=== PATIENT | male | born 1960 | race Caucasian/White ===

== ENCOUNTER 2020-02-20 14:17 | Outpatient (CLI) | payer OTHER, SELFPAY ==
--- NOTE | ~2020-02-20 | CT_ITS ---
EXAMINATION: CT lung screening DATE: 02/20/2020 15:05 INDICATION: Personal history of tobacco dependence, prior smoker with 40 pack year history TECHNIQUE: Computed tomography (CT) of the chest was performed without intravenous contrast. The dose -length product (DLP) was 229.81 mGy-cm. Automated exposure control and iterative reconstruction tech Brandicted were employed. COMPARISON: 03/10/2006 FINDINGS: No suspicious pulmonary nodule is identified. There are patchy bilateral groundglass opacit ies with a peripheral and upper lung zone predominance which may reflect hypersensitivity pneumonitis . There is no pleural effusion or pneumothorax. No pathologically enlarged thoracic lymph nodes are i dentified. The heart size is normal. Calcified coronary artery atherosclerosis is noted. There is min imal bilateral gynecomastia. IMPRESSION: 1. . Lung-RADS category 1: Negative. Continue annual screening with noncontrast low-dose chest CT in 12 months. Reviewed, dictated and finalized at location A.
== END 2020-02-20 14:18 | disposition home or self-care (01) ==
LOC: ANHIMG 14:23
PROVIDERS: PCP Family Medicine; Visit Provider Family Medicine
DX: Z12.2 Encounter for screening for malignant neoplasm of respiratory organs (principal); Z87.891 Personal history of nicotine dependence
CPT/HCPCS: G0297

== ENCOUNTER 2020-03-12 14:03 | Emergency (ER) | payer OTHER, SELFPAY ==
[2020-03-12 14:14] VITALS: BP 152/75; PULSE 72; RESP 16; TEMP 37.3; O2SAT 97
--- NOTE | 2020-03-12 14:22 | ED.SKABFB ---
HPI - Skin/Abscess/Foreign Bdy General Chief complaint: Skin/Abscess/Foreign Body Stated complaint: rash Time Seen by Provider: 03/12/20 14:15 Source: patient Mode of arrival: ambulatory Limitations: no limitations History of Present Illness HPI narrative: Monster Raymundo is a 60 yo male with a PMH of hypertension high cholesterol, who comes to express care with rash on both arms and lower back. Just moved into a hotel, rash occurred after he moved in yesterday Related Data Home Medications Medication Instructions Recorded Confirmed atorvastatin 20 mg PO DAILY 03/12/20 03/12/20 bupropion HCl 75 mg PO DAILY 03/12/20 03/12/20 diazepam 5 mg PO BID 03/12/20 03/12/20 ergocalciferol (vitamin D2) 1,250 mcg PO DAILY 03/12/20 03/12/20 fluoxetine 20 mg PO DAILY 03/12/20 03/12/20 hydrocodone-acetaminophen 1 tablet PO TID 03/12/20 03/12/20 levothyroxine 50 mcg PO DAILY 03/12/20 03/12/20 losartan 25 mg PO DAILY 03/12/20 03/12/20 terbinafine HCl 250 mg PO DAILY 03/12/20 03/12/20 valsartan 80 mg PO DAILY 03/12/20 03/12/20 Allergies Allergy/AdvReac Type Severity Reaction Status Date / Time codeine Allergy Unknown Verified 03/12/20 14:29 methocarbamol Allergy Unknown Verified 03/12/20 14:29 gabapentin AdvReac Mild Agitated Verified 03/12/20 14:29 nalbuphine AdvReac Unknown Vomiting Verified 03/12/20 14:29 Review of Systems Review of Systems: Narrative: CONSTITUTIONAL: Denies fever, chills, sweats. EYES: Denies visual changes, redness, discharge. ENT: Denies rhinorrhea, congestion, sore throat, otalgia. CARDIOVASCULAR: Denies chest pain, palpitations, edema. RESPIRATORY: Denies dyspnea, wheezing, cough GASTROINTESTINAL: Denies abdominal pain, nausea, vomiting, diarrhea. GENITOURINARY: Denies dysuria, hematuria, abnormal discharge SKIN: Itching red rash on arms and lower back NEUROLOGIC: Denies numbness, or focal weakness. PSYCHIATRIC: Denies anxiety or depression. [facility] Surgical History Surgical History H/O discectomy Family History Family History (Updated 03/12/20 @ 14:31 by Geeta Sigala CNP) Father Family history of lung cancer Alcohol abuse Father Family history of lung cancer Mother Family history of congestive heart failure Other Diabetes mellitus Social History Social History (Updated 03/12/20 @ 14:31 by Geeta Sigala CNP) Smoking packs per day: 1 Smoking cigarettes per day: 20.0 Smoking status: Current every day smoker Tobacco type: cigarettes Alcohol intake: former Living arrangements: with family Comments I have reviewed the medical surgical and family history of patient; none of these are relevant to reason patient is being seen here today Exam Narrative: Exam Narrative: GENERAL: This is a well-nourished, well-developed patient, in mild distress. HEAD: normocephalic, atraumatic. EYES: Sclera clear/white. Vision is grossly intact. EARS: External ears normal, Hearing grossly intact. NOSE: External nose normal without nasal discharge, nares without redness, no rhinorrhea. THROAT: Mucous membranes moist, NECK: Neck supple, CARDIOVASCULAR: Regular rate and rhythm without murmurs, gallops, or rubs. RESPIRATORY: Clear to auscultation. Breath sounds equal bilaterally. No wheezes, rales, or rhonchi. GASTROINTESTINAL: Abdomen soft, SKIN: warm, i red rash on forearms and lower back, appears to be insect bites, pruritic, good texture and turgor. NEURO: awake, alert, and oriented to person, place and time. There were no obvious focal neurologic abnormalities. Steady gait EXTREMITIES: Normal range of motion. BACK: Nwithout deformity Course Course Emergency Course: Started on Benadryl and hydrocortisone cream Vital Signs Vital signs: Vital Signs Temperature 99.2 F 03/12/20 14:14 Pulse Rate 72 03/12/20 14:14 Respiratory Rate 16 03/12/20 14:14 Blood Pressure 152/75 H 03/12/20 14:14 Pulse Oximetry 97 03/12/20 14:
== END 2020-03-12 14:44 | disposition home or self-care (01) ==
PROVIDERS: Emergency Provider Nurse Practitioner; PCP Family Medicine
DX: S30.860A Insect bite (nonvenomous) of lower back and pelvis, initial encounter (principal); I10 Essential (primary) hypertension; E78.00 Pure hypercholesterolemia, unspecified; W57.XXXA Bitten or stung by nonvenomous insect and other nonvenomous arthropods, initial encounter
CPT/HCPCS: 99213; G0463

== ENCOUNTER 2020-11-04 09:24 | Outpatient (CLI) | payer OTHER, SELFPAY ==
--- NOTE | 2020-12-13 18:27 | WPDHOMESLEEP ---
Sleep Study - Home Unattended Date of Study: 11/04/20 Ordering Provider: Valencia Babin MD Interpreting Physician: Tracie Berry MD Home Sleep Study Type: Apnea Link Air Height: 1.85 m Weight: 108.862 kg Body Mass Index: 31.6 Reason for Sleep Study Non-refreshing sleep Sleep History Monster Raymundo is a 60 year old man with hypertension, anxiety and depression. He has complaints of witnessed apneas, snoring, morning grogginess, nonrestorative sleep, morning headaches and excessive daytime sleepiness. His sleepiness limits his daily activities and interferes with his work. He is drowsy while driving. He has excessive dryness of his mouth, and often gasps for breath at night. This information was obtained from Dr. Babin' office note. The patient did not complete the sleep questionnaire. [facility] Past Medical History Medical History (Updated 12/13/20 @ 19:49 by Tracie Berry MD) COPD (chronic obstructive pulmonary disease) Depression High cholesterol History of transient ischemic attack Hypertension Osteoarthritis Spinal stenosis Tobacco abuse Surgical History Surgical History (Updated 12/13/20 @ 19:36 by Tracie Berry MD) H/O discectomy History of eye surgery 1963 History of knee surgery Family History Family History Father Family history of lung cancer Alcohol abuse Father Family history of lung cancer Mother Family history of congestive heart failure Other Diabetes mellitus Social History Social History Smoking packs per day: 1 Smoking cigarettes per day: 20.0 Smoking status: Current every day smoker Tobacco type: cigarettes Alcohol intake: former Medications Home Medications Medication Instructions Recorded Confirmed Type atorvastatin 20 mg PO DAILY 03/12/20 03/12/20 History bupropion HCl 75 mg PO DAILY 03/12/20 03/12/20 History diazepam 5 mg PO BID 03/12/20 03/12/20 History diphenhydramine HCl [Benadryl] 25 mg PO Q6H PRN #60 cap 03/12/20 Rx ergocalciferol (vitamin D2) 1,250 mcg PO DAILY 03/12/20 03/12/20 History fluoxetine 20 mg PO DAILY 03/12/20 03/12/20 History hydrocodone-acetaminophen 1 tablet PO TID 03/12/20 03/12/20 History hydrocortisone 1 applic TOPICAL TID PRN #28.35 gm 03/12/20 Rx levothyroxine 50 mcg PO DAILY 03/12/20 03/12/20 History losartan 25 mg PO DAILY 03/12/20 03/12/20 History terbinafine HCl 250 mg PO DAILY 03/12/20 03/12/20 History valsartan 80 mg PO DAILY 03/12/20 03/12/20 History Sleep Procedure This test was performed using 4 channel monitoring including respiratory effort channel, snoring channel, heart rate channel, and oxygen saturation channel. This study was scored using CMS guidelines. Sleep Architecture Not applicable for home sleep test. Respiratory Analysis Duration of the recording time is 8 hours 52 minutes. Evaluation time is 8 hours 40 minutes. The apnea-hypopnea index is 14. He had 34 obstructive apneas, 64% of the total, and 17 central apneas, 32% of the total, 2 mixed apneas, 4% of the total. There were 68 hypopneas. There is no evidence of Joseph-Herrera respirations. Oximetry Data The oxygen desaturation index is 10. The lowest desaturation is 86%. The mean saturation is 94%. There were 83 desaturations and this patient spent 1 minute below 88%. Snoring Profile There were 2131 snoring events. Cardiac Profile The lowest heart rate is 54, highest heart rate uis 115 which is elevated. The mean heart rate is 79. Assessment and Plan Assessment and Plan (1) Obstructive sleep apnea: Onset Date: ~10/2020 Code(s): G47.33 - Obstructive sleep apnea (adult) (pediatric) Status: Acute Assessment and Plan: The home sleep test using an ApneaLink device on 11/04/2020 shows mild obstructive sleep apnea with an AHI 14, total of 53 apneas which were mainly obstructive apneas; obstructive apneas were 64%
[2020-12-13 20:11] VITALS: BMI 31.6
== END 2020-11-04 09:25 | disposition home or self-care (01) ==
LOC: ANHCSM 09:25
PROVIDERS: PCP Family Medicine; Visit Provider Family Medicine
DX: G47.33 Obstructive sleep apnea (adult) (pediatric) (principal)
CPT/HCPCS: 95806

== ENCOUNTER → 2021-01-02 00:53 | Outpatient (CLI) | payer OTHER, SELFPAY ==
[2021-01-02 19:48] LABS: SARS-CoV-2 RNA PCR Negative
== END ==
PROVIDERS: PCP Family Medicine; Visit Provider Internal Medicine Critical Care Medicine
DX: Z01.812 Encounter for preprocedural laboratory examination (principal); Z20.822 Contact with and (suspected) exposure to COVID-19
CPT/HCPCS: C9803; U0003; U0005

== ENCOUNTER → 2021-01-12 01:02 | Outpatient (CLI) | payer OTHER, SELFPAY ==
[2021-01-12 18:32] LABS: SARS-CoV-2 RNA PCR Negative
== END ==
PROVIDERS: PCP Family Medicine; Visit Provider Internal Medicine Critical Care Medicine
DX: Z01.812 Encounter for preprocedural laboratory examination (principal); Z20.822 Contact with and (suspected) exposure to COVID-19
CPT/HCPCS: C9803; U0003; U0005

== ENCOUNTER 2021-01-13 13:45 | Outpatient (CLI) | payer OTHER, SELFPAY ==
--- NOTE | 2021-01-13 | ECHO_ITS ---
Patient Info Name: Monster Raymundo Age: 60 years : 1960 Gender: Male Ht: 73 in Wt: 230 lbs BSA: 2.34 m2 HR: 83 bpm BP: 150 / 97 mmHg Heart Rhythm: Sinus Rhythm Exam Date: 01/13/2021 2:04 PM Exam Location: [facility] Patient Status: Outpatient Admit Date: 01/13/2021 Staff Ordering Physician: Filippo, Valencia Hanson MD Mother Tester: Deja Merritt RDCS Attending Provider: Filippo, Valencia Hanson MD Referring Physician: Olaf MARTIN; Exam Type: CA echo doppler color flow Study Info Indications - Chronic Obstructive Pulmonary Disease, Sleep Apnea Complete two-dimensional, color flow and Doppler transthoracic echocardiogram is performed. Summary 1. Complete two-dimensional, color flow and Doppler transthoracic echocardiogram is performed. 2. Left ventricular chamber dimension is normal. 3. Left ventricular systolic function is normal, estimated at 55-60%. 4. There is mildly increased left ventricular wall thickness. 5. The left ventricular diastolic function is grade I diastolic dysfunction. 6. E/e' 10 is mildly elevated. 7. There is moderate aortic valve sclerosis. 8. There is mild aortic valve stenosis with a peak velocity of 182 cm/s, mean gradient of 6 mmHg, and aortic valve area of 1.6 cm2. 9. The mitral valve has moderately calcified annulus. Left Ventricle E/e' 10 is mildly elevated. Left ventricular chamber dimension is normal. Left ventricular systolic function is normal, estimated at 55-60%. There is mildly increased left ventricular wall thickness. The left ventricular diastolic function is grade I diastolic dysfunction. Right Ventricle Right ventricular chamber dimension is normal. Right ventricular systolic function is normal. Left Atria Left atrial chamber dimension is normal. Right Atria Right atrial chamber dimension is normal. Aortic Valve The aortic valve is trileaflet. There is moderate aortic valve sclerosis. There is mild aortic valve stenosis with a peak velocity of 182 cm/s, mean gradient of 6 mmHg, and aortic valve area of 1.6 cm2. There is no aortic valve regurgitation. Pulmonic Valve There is no pulmonic regurgitation. Mitral Valve The mitral valve has moderately calcified annulus. There is no mitral valve stenosis. There is no mitral valve regurgitation. Tricuspid Valve There is no tricuspid valve regurgitation. Pericardium/Pleural There is no pericardial effusion. Inferior Vena Cava Normal inferior vena cava with >50% collapse upon inspiration consistent with normal right atrial pressure, 5 mmHg. Aorta The aortic root size at the sinus of Valsalva is normal. Left Ventricular Outflow Tract Name Value Normal LVOT 2D LVOT Diameter 2.0 cm LVOT Doppler LVOT Peak Gradient 3 mmHg LVOT Mean Gradient 2 mmHg LVOT VTI 19 cm LVOT VTI/AV VTI Ratio 0.5 LVOT Stroke Volume 57 ml LVOT CO 10.9 l/min LVOT CI 4.7 l/min/m2 P
== END 2021-01-13 13:46 | disposition home or self-care (01) ==
PROVIDERS: PCP Family Medicine; Visit Provider Family Medicine
DX: G47.33 Obstructive sleep apnea (adult) (pediatric) (principal); I35.8 Other nonrheumatic aortic valve disorders; I35.0 Nonrheumatic aortic (valve) stenosis
CPT/HCPCS: 93306

== ENCOUNTER 2021-01-14 09:36 | Outpatient (CLI) | payer OTHER, SELFPAY ==
--- NOTE | 2021-01-30 11:28 | WPDSLEEPSTUD ---
Sleep Study Date of Study: 01/14/21 Ordering Provider: Valencia Babin, Interpreting Physician: Alejandro Reyna MD Sleep Study Type: CPAP Titration Height: 1.85 m Weight: 108.862 kg Body Mass Index: 31.6 Neck Circumference (inches): 17.5 Lopez: 7 Reason for Sleep Study Prior home study performed in October of 2020 showed presence of obstructive sleep apnea. The patient was recommended to have CPAP titration study because of concurrent presence of central apneic episodes. Sleep History Patient has history of snoring, witnessed apneas, morning grogginess, nonrestorative sleep, morning headaches and daytime sleepiness. Patient also complains of dry mouth. [facility] Past Medical History Medical History (Updated 12/13/20 @ 19:49 by Tracie Berry MD) COPD (chronic obstructive pulmonary disease) Depression High cholesterol History of transient ischemic attack Hypertension Osteoarthritis Spinal stenosis Tobacco abuse Surgical History Surgical History (Updated 12/13/20 @ 19:36 by Tracie Berry MD) H/O discectomy History of eye surgery 1963 History of knee surgery Family History Family History Father Family history of lung cancer Alcohol abuse Father Family history of lung cancer Mother Family history of congestive heart failure Other Diabetes mellitus Social History Social History Smoking packs per day: 1 Smoking cigarettes per day: 20.0 Smoking status: Current every day smoker Tobacco type: cigarettes Alcohol intake: former Medications Home Medications Medication Instructions Recorded Confirmed Type atorvastatin 20 mg PO DAILY 03/12/20 03/12/20 History bupropion HCl 75 mg PO DAILY 03/12/20 03/12/20 History diazepam 5 mg PO BID 03/12/20 03/12/20 History diphenhydramine HCl [Benadryl] 25 mg PO Q6H PRN #60 cap 03/12/20 Rx ergocalciferol (vitamin D2) 1,250 mcg PO DAILY 03/12/20 03/12/20 History fluoxetine 20 mg PO DAILY 03/12/20 03/12/20 History hydrocodone-acetaminophen 1 tablet PO TID 03/12/20 03/12/20 History hydrocortisone 1 applic TOPICAL TID PRN #28.35 gm 03/12/20 Rx levothyroxine 50 mcg PO DAILY 03/12/20 03/12/20 History losartan 25 mg PO DAILY 03/12/20 03/12/20 History terbinafine HCl 250 mg PO DAILY 03/12/20 03/12/20 History valsartan 80 mg PO DAILY 03/12/20 03/12/20 History Sleep Procedure Patient underwent overnight polysomnography for CPAP titration. Patient used Neuronetrix Goff FX nasal pillows of medium size. Sleep Architecture total recording time 450 minutes, total sleep time 246 minutes, sleep efficiency 54.7%. Sleep latency 55 minutes, REM latency 173 minutes. Awake after sleep onset 148 minutes, stage N1 8.5%, N2 86.2%, N3 0% and stage R 5.3%. Supine sleep 100%. Respiratory Analysis [facility] criteria used. During titration patient did not have apneas or hypopneas and AHI was 0. Arousals Total arousals 63 with index 8.4. Spontaneous arousals 58, snores arousals 5. Periodic Limb Movements There were no leg movements. Oximetry Data Mean oxygen saturation 93%, lowest oxygen saturation 91%. Therefore no significant hypoxia was encountered. Snoring Profile Mild continuous snoring noted. Cardiac Profile Normal sinus rhythm with average heart rate of 76 beats per minute. Range 56 to 86 beats per minute. EEG Profile Unremarkable EEG. Assessment and Plan Additional Plan diagnosis -PAMELLA G44.37 During CPAP titration patient used Goff FX nasal pillows of medium size. CPAP data- patient was started on a CPAP of 5 and was increased to a level of 8 cm. This was as a result of persistent snoring and presumed upper airway resistance. EPR of 1 was added for patient comfort. At CPAP of 8 cm- 2 hours and 7 minutes of trial was performed, 11 minutes of REM sleep and 1 hour and 30 minutes of non-REM sleep occurred. A
[2021-01-30 11:45] VITALS: BMI 31.6
== END 2021-01-14 09:37 | disposition home or self-care (01) ==
LOC: ANHCSM 09:37
PROVIDERS: PCP Family Medicine; Visit Provider Family Medicine
DX: G47.33 Obstructive sleep apnea (adult) (pediatric) (principal)
CPT/HCPCS: 95811

== ENCOUNTER 2021-07-28 09:08 | Outpatient (CLI) | payer OTHER, SELFPAY ==
--- NOTE | ~2021-07-28 | XR_ITS ---
EXAMINATION: XR chest 2V 07/28/2021 09:22 INDICATION: Exposure to mold. PROCEDURE: 2 view chest COMPARISON: Comparison to multiple prior studies sequentially, with oldest reviewed study dated 10/1999. FINDINGS: The lungs are clear. The cardiomediastinal silhouette is within normal limits. There are no pleural effusions. There is no pneumothorax suspected. IMPRESSION: 1: NO ACUTE CARDIOPULMONARY DISEASE. Reviewed, dictated and finalized at location A.
== END 2021-07-28 09:09 | disposition home or self-care (01) ==
LOC: ANHIMG 09:14
PROVIDERS: PCP Family Medicine; Visit Provider Physician Assistant
DX: Z77.120 Contact with and (suspected) exposure to mold (toxic) (principal)
CPT/HCPCS: 71046

== ENCOUNTER 2021-09-15 09:33 | Outpatient (CLI) | payer OTHER, SELFPAY ==
--- NOTE | ~2021-09-15 | NM_ITS ---
EXAMINATION: NM trinity stress w perfusion DATE: 09/15/2021 13:04 INDICATION: Chest pain. TECHNIQUE: Rest images were obtained following intravenous administration of 10.5 mCi Tc99m tetrofosm in (Myoview). The patient was infused intravenously with Lexiscan (regadenoson). Then, 31.1 mCi Tc99m tetrofosmin (Myoview) was administered intravenously, and stress images were obtained. Data was davie nstructed into short axis and horizontal and vertical long axis SPECT images. Gated SPECT images were also obtained. COMPARISON: Myocardial perfusion imaging 05/01/2019 FINDINGS: There is no definite reversible or fixed perfusion abnormality to suggest ischemia or infar ction. There is no segmental wall motion abnormality. Left ventricular ejection fraction measures > 70%. IMPRESSION: 1. No definite ischemia or infarct. 2. Normal left ventricular ejection fraction measuring >70%. Reviewed, dictated and finalized at location A. [employer]ENEFITS SPECIALIST
--- NOTE | 2021-09-15 10:24 | EST_ITS ---
Patient Info Name: Monster Raymundo Age: 61 years : 1960 Gender: Male Ht: 73 in Wt: 261 lbs BSA: 2.51 m2 Exam Date: 09/15/2021 11:29 AM Exam Location: [facility] Stress Patient Status: Outpatient Admit Date: 09/15/2021 Staff Ordering Physician: Jose Berkowitz DO Attending Provider: Jose Berkowitz DO Exercise Technologist: Jostin Stallings RDCS, RT Exercise Physician: Jose Berkowitz DO Exam Type: CA stress trinity w NM Study Info A regadenoson stress test was performed. Summary 1. 1. Negative lexiscan stress test for ischemic ST changes by ECG criteria. 2. 2. Baseline hypertension. 3. 3. Nuclear scan to follow and will be reported separately. Please correlate with it. 4. 4. Patient informed of the above results. Protocol: Lexiscan Stress ECG Details Stage: REST Duration (min): 1 min : 35 sec HR (bpm): 68 SBP (mmHg): 151 DBP (mmHg): 79 Stage: REST Duration (min): 4 min : 38 sec HR (bpm): 66 SBP (mmHg): 151 DBP (mmHg): 79 Stage: STAGE 1 Duration (min): 1 min : 0 sec HR (bpm): 73 SBP (mmHg): 144 DBP (mmHg): 81 Stage: RECOVERY Duration (min): 1 min : 0 sec HR (bpm): 101 SBP (mmHg): 144 DBP (mmHg): 81 Stage: RECOVERY Duration (min): 2 min : 0 sec HR (bpm): 101 SBP (mmHg): 144 DBP (mmHg): 81 Stage: RECOVERY Duration (min): 3 min : 0 sec HR (bpm): 101 SBP (mmHg): 158 DBP (mmHg): 72 Stage: RECOVERY Duration (min): 3 min : 18 sec HR (bpm): 96 SBP (mmHg): 158 DBP (mmHg): 72 Rest HR: 66 bpm Peak HR: 101 bpm Rest Sys BP: 151 mmHg Peak Sys BP: 158 mmHg Max Pred HR: 157 bpm % Max Pred HR: 64 % Target HR: 133 bpm Max RPP: 15,958 bpm*mmHg Termination Reason: Completed protocol Cardiac Symptoms: Shortness of breath Total Time: 1 min : 0 sec Rest Paredes BP: 79 mmHg Peak Paredes BP: 72 mmHg Total Dose: 0.4 mg Resting ECG Sinus rhythm. Stress ECG No ST changes. Arrhythmias None. Report Signatures
== END 2021-09-15 09:34 | disposition home or self-care (01) ==
LOC: ANHCARD 09:37
PROVIDERS: Visit Provider Internal Medicine Cardiovascular Disease
DX: R07.89 Other chest pain (principal)
CPT/HCPCS: 78452; 93017; A9502; J2785

== ENCOUNTER → 2021-10-09 00:43 | Outpatient (CLI) | payer OTHER, SELFPAY ==
[2021-10-09 20:10] LABS: SARS-CoV-2 RNA PCR Negative
== END ==
PROVIDERS: PCP Physician Assistant; Visit Provider Nurse Practitioner Gerontology
DX: J34.9 Unspecified disorder of nose and nasal sinuses (principal); Z20.822 Contact with and (suspected) exposure to COVID-19
CPT/HCPCS: C9803; U0003; U0005

== ENCOUNTER 2021-10-19 10:11 | Outpatient (CLI) | payer OTHER, SELFPAY ==
--- NOTE | ~2021-10-19 | CT_ITS ---
EXAMINATION: CT lung screening DATE: 10/19/2021 10:31 INDICATION: Shortness of breath, cough. Chest pain. TECHNIQUE: Computed tomography (CT) of the chest was performed without intravenous contrast. The dose -length product was 456.23 mGy-cm. Automated exposure control and iterative reconstruction technique were employed. COMPARISON: CT dated 02/20/2020 FINDINGS: Heart size is normal. There is atherosclerosis of the aorta and coronary arteries. Gallblad sreekanth is mildly distended. There is fatty infiltration of the liver. Otherwise, the upper aspect of the abdomen is unremarkable. No thoracic lymphadenopathy. No significant pleural or pericardial effusion . There is bilateral gynecomastia. There are patchy groundglass opacities primarily involving the upp er lobes with scattered subpleural nodules measuring 2 mm or less. This constellation of findings is suspicious for respiratory bronchiolitis No endobronchial lesions. No pneumothorax. Mild thoracic spo ndylosis. No acute bone or joint abnormality. There is a focal lytic lesion of T3 on the left IMPRESSION: 1. Lung-RADS category 2: Benign appearance or behavior. Continue annual screening with noncontrast lo w-dose chest CT in 12 months. 2: Upper lobe predominant groundglass opacities with associated centrilobular nodules measuring 2 mm or less, suspicious for respiratory bronchiolitis.. 3: Focal lytic lesion of T3 on the left, nonspecific. If there is a history of malignancy, consider m etastatic disease and also myeloma. Reviewed, dictated and finalized at location A. TRICAL WORKER IMPRESSION: 1. Lung-RADS category 2: Benign appearance or behavior. Continue annual screeni ng with noncontrast low-dose chest CT in 12 months. 2: Upper lobe predominant groundglass opacities with associated centrilobular n odules measuring 2 mm or less, suspicious for respiratory bronchiolitis.. 3: Focal lytic lesion of T3 on the left, nonspecific. If there is a history of malignancy, consider metastatic disease and also myeloma.
== END 2021-10-19 10:12 | disposition home or self-care (01) ==
LOC: ANHIMG 10:13
PROVIDERS: PCP Physician Assistant; Visit Provider Nurse Practitioner Gerontology
DX: F17.210 Nicotine dependence, cigarettes, uncomplicated (principal); R91.8 Other nonspecific abnormal finding of lung field
CPT/HCPCS: 71271

== ENCOUNTER 2021-11-04 08:09 | Outpatient (CLI) | payer OTHER, SELFPAY ==
--- NOTE | 2021-11-08 20:05 | WPDPFTINT ---
PFT Procedure Performed PFT Procedure Performed Spirometry with Pre/Post Bronchodilator Plethysmography (Lung Vol) Diffusing Cap (DLCO) Flow Vol Loop PFT Interpretation DOS: 11/04/2021 REQUESTING: Brenda Graves APRN REASON FOR TESTING: Emphysema PULMONARY FUNCTION TESTS Results are reliable and reproducible. Spirometry: Pre-bronchodilator FEV1 is 80% predicted, 3.05 L. This is normal. FVC is 94% predicted, normal. FEV1/ FVC ratio is decreased 65% and this is consistent with airflow obstruction. HQB94-78% is decreased 59% predicted. There is no change after bronchodilator administration. Lung volumes: Total lung capacity is normal 91% predicted. Residual volume is 90% predicted, normal. RV.TLC is 32%, normal. There is no hyperinflation or air trapping. Airway resistance is increased, 216%. Diffusion: DLCO is 59%, moderately reduced. DLCO/VA is 73%, a partial correction for alveolar volume. Flow volume loop: There is mild flattening on both the inspiratory and expiratory limbs. IMPRESSION: Mild obstructive ventilatory impairment with normal lung volumes and moderate diffusion impairment. This pattern can be seen in chronic obstructive lung disease. Lack of response to bronchodilator should not preclude use if clinically indicated. Compared to the prior pulmonary function study on June 04, 2019 values are similar. The total lung capacity is lower 91% compared to 108% in 2019. Air trapping was present previously and now this is no longer present. Diffusion was approximately the same, 60% compared to 59% currently. Flow volume loop was similar. Tracie Berry MD
--- NOTE | 2021-11-08 20:20 | WPDSIXMINUTE ---
Six Minute Walk Procedure Procedure Performed Pulmonary Stress Test (6 min walk) Six Minute Walk Six Minute Walk: DOS: 11/04/2021 REQUESTING: Brenda Graves APRN REASON FOR TESTING: Emphysema SIX MINUTE WALK This test was conducted per ATS guidelines. The patient perform the test while breathing room air. Initial saturation is 97% and the pulse is 83. He walked for 6 minutes without stopping with a minimum saturation of 91%. Pulse increased to 101. During recovery, saturation returned to baseline 97%. The pulse returned to 84. Distance walked 1100 ft, 335.2 m. This is adequate for his age. IMPRESSION: Mild decrease in saturation to 91% without cruz hypoxemia. No supplemental oxygen indicated. Distance walked is adequate for his age.
== END 2021-11-04 08:10 | disposition home or self-care (01) ==
LOC: ANHPFT 08:09
PROVIDERS: PCP Physician Assistant; Visit Provider Nurse Practitioner Gerontology
DX: J43.9 Emphysema, unspecified (principal); R94.2 Abnormal results of pulmonary function studies
CPT/HCPCS: 94060; 94618; 94726; 94729

== ENCOUNTER 2021-12-14 02:04 | Day surgery (SDC) | payer OTHER, SELFPAY ==
[2021-11-30 13:48] VITALS: BMI 34.3
[2021-12-14 07:41] VITALS: BP 162/89; PULSE 88; RESP 16; TEMP 36.5; O2SAT 97; BMI 33.3
[2021-12-14] MEDS: LACTATED RINGERS 1,000 ML 150 ML IV CONT (07:51)
--- NOTE | 2021-12-14 08:11 | SUR.PREOP ---
Patient requesting to be awake during procedure so that he can watch the screen. Education provided to patient in regards to medications per DR Rogers. They agreed on having different medications that will allow him to see the screen during the procedure.
--- NOTE | 2021-12-14 08:32 | WPDANESEPPF ---
Anes - Initial Pre Proc Eval Procedure: Operation Date: 12/14/21 08:45 Proposed Procedures p Colonoscopy - Ronnie Salazar MD Date/Time: 12/14/21 08:32 Surgeon: Ronnie Salazar MD Pre Op Diagnosis: constipation Patient Data Age: 61 Gender: M Height: 1.85 m Weight: 114.6 kg Last Vital Signs Temp 97.7 F 12/14/21 07:41 Pulse 88 12/14/21 07:41 Resp 16 12/14/21 07:41 BP 162/89 H 12/14/21 07:41 Pulse Ox 97 12/14/21 07:41 Allergies Allergy/AdvReac Type Severity Reaction Status Date / Time codeine Allergy Unknown Unknown Verified 12/14/21 07:40 methocarbamol Allergy Unknown Unknown Verified 12/14/21 07:40 gabapentin AdvReac Mild Agitated Verified 12/14/21 07:40 nalbuphine AdvReac Unknown Vomiting Verified 12/14/21 07:40 Home Medications Medication Instructions Recorded Confirmed Type ergocalciferol (vitamin D2) 1,250 mcg PO WEEKLY 03/12/20 12/14/21 History hydrocodone-acetaminophen 1 tablet PO BID 03/12/20 12/14/21 History levothyroxine 50 mcg PO DAILY 03/12/20 12/14/21 History losartan 25 mg PO DAILY 03/12/20 12/14/21 History atorvastatin 20 mg tablet 20 mg PO QHS #30 tablet 08/18/21 12/14/21 Rx linaclotide 72 mcg capsule 72 mcg PO DAILY 30 Days #30 cap 11/03/21 12/14/21 Rx aspirin 81 mg PO DAILY 11/30/21 12/14/21 History Patient hx anesthesia problems: none Family hx anesthesia problems: none Results Review: All pre-operative results and documents have been reviewed as part of the pre-operative evaluation. [facility] Past Medical History Medical History COPD (chronic obstructive pulmonary disease) Depression High cholesterol History of transient ischemic attack Hypertension Osteoarthritis Spinal stenosis Tobacco abuse Surgical History Surgical History H/O discectomy History of eye surgery 1963 History of knee surgery Family History Family History Father Family history of lung cancer Alcohol abuse Father Family history of lung cancer Mother Family history of congestive heart failure Other Diabetes mellitus Social History Social History Smoking packs per day: 0.75 Smoking cigarettes per day: 15.0 Years smoked: 50 Smoking pack-years: 37.50 Smoking status: Current every day smoker Tobacco type: cigarettes Alcohol intake: former Substance use: current Substance use type: marijuana Other substance usage details: Daily Living arrangements: with family Spiritual care concerns: No Anes - Eval Final PreProcedure Day of Procedure 12/14/21 08:32 Patient weight: obese Heart: regular rate and rhythm Lungs: clear to auscultation Airway: Mallampati scale class III Neurological: alert and oriented Last oral intake: >/= 8 hours ASA classification: III Emergent: no Anesthetic plan: proceed Anesthesia type and monitoring: general GIVS and standard monitoring Results Review: All pre-operative results and documents have been reviewed as part of the pre-operative evaluation. Informed Consent: The patient's anesthetic plan and its attendant risks and benefits were discussed with the patient/family/POA. Questions were solicited and answers provided to the satisfaction of the patient/family/POA.
--- NOTE | 2021-12-14 08:36 | PM.HPGS ---
History of Present Illness History of Present Illness Consent: Risks, benefits, and alternatives have been discussed and questions answered. Patient agrees to proceed with procedure. Chief complaint: constipation Narrative: Monster Raymundo is a 61 year old male with constipation, last colonoscopy 2011. Recently tried linzess 72 mcg only worked initially. Review of Systems Constitutional: Constitutional: Denies headache(s) and Denies weakness Eyes: Eyes: Denies blurry vision ENT: Reports Normal hearing present, Denies headache(s) and Denies neck pain Cardiovascular: Cardiovascular: Denies chest pain and Denies dyspnea Respiratory: Respiratory: Denies dyspnea Gastrointestinal: Gastrointestinal: Reports no additional gastrointestinal complaints Genitourinary: Genitourinary: Denies dysuria Musculoskeletal: Musculoskeletal: Denies neck pain Integumentary/Breasts: Skin/Breast: Denies dry skin Neurologic: Reports Normal hearing present, Denies headache(s) and Denies weakness Psychiatric: Psychiatric: Denies anxiety Endocrine: Endocrine: Denies change in body appearance Hematologic/Lymphatic: Hematologic/Lymphatic: Denies easy bleeding Allergic/Immunologic: Allergic/Immunologic: Denies urticaria PMF Past Medical History Medical History (Updated 12/14/21 @ 08:37 by Ronnie Salazar MD) Constipation COPD (chronic obstructive pulmonary disease) Depression High cholesterol History of transient ischemic attack Hypertension Osteoarthritis Spinal stenosis Tobacco abuse Surgical History Surgical History H/O discectomy History of eye surgery 1963 History of knee surgery Family History Family History Father Family history of lung cancer Alcohol abuse Father Family history of lung cancer Mother Family history of congestive heart failure Other Diabetes mellitus Social History Social History Smoking packs per day: 0.75 Smoking cigarettes per day: 15.0 Years smoked: 50 Smoking pack-years: 37.50 Smoking status: Current every day smoker Tobacco type: cigarettes Alcohol intake: former Substance use: current Substance use type: marijuana Other substance usage details: Daily Living arrangements: with family Spiritual care concerns: No Meds Home Medications and Allergies Home Medications Medication Instructions Recorded Confirmed Type ergocalciferol (vitamin D2) 1,250 mcg PO WEEKLY 03/12/20 12/14/21 History hydrocodone-acetaminophen 1 tablet PO BID 03/12/20 12/14/21 History levothyroxine 50 mcg PO DAILY 03/12/20 12/14/21 History losartan 25 mg PO DAILY 03/12/20 12/14/21 History atorvastatin 20 mg tablet 20 mg PO QHS #30 tablet 08/18/21 12/14/21 Rx linaclotide 72 mcg capsule 72 mcg PO DAILY 30 Days #30 cap 11/03/21 12/14/21 Rx aspirin 81 mg PO DAILY 11/30/21 12/14/21 History Allergies Allergy/AdvReac Type Severity Reaction Status Date / Time codeine Allergy Unknown Unknown Verified 12/14/21 07:40 methocarbamol Allergy Unknown Unknown Verified 12/14/21 07:40 gabapentin AdvReac Mild Agitated Verified 12/14/21 07:40 nalbuphine AdvReac Unknown Vomiting Verified 12/14/21 07:40 Vital Signs Vital Signs - 24 hr 12/14/21 07:41 Temperature 97.7 F Pulse Rate 88 Respiratory Rate 16 Blood Pressure 162/89 H Pulse Oximetry 97 Exam Const: General: comfortable and no acute distress HENMT: General nose exam: Normal nares present Eyes: General: appearance normal, both eyes and all related structures Neck: Neck: no JVD Resp: Auscultation: clear to auscultation bilaterally Cardio: Rate: regular rate Rhythm: regular rhythm GI: Inspection: non-distended GI Palp: Yes Soft to palpation Skin: General skin exam: normal color Neuro: General: gait normal Speech: normal speech Extrem
[2021-12-14 09:06] VITALS: BP 152/72; PULSE 75; RESP 23; O2SAT 99
[2021-12-14 09:16] VITALS: BP 152/82; PULSE 74; RESP 17; O2SAT 100
[2021-12-14 09:26] VITALS: BP 143/86; PULSE 70; RESP 15; O2SAT 100
== END 2021-12-14 09:30 | disposition home or self-care (01) ==
PROVIDERS: Visit Provider Internal Medicine Gastroenterology
PROC: 0DJD8ZZ Inspection of Lower Intestinal Tract, Via Natural or Artificial Opening Endoscopic (ICD-10-PCS; CPT 45378; principal; 2021-12-14 08:45)
DX: Z12.11 Encounter for screening for malignant neoplasm of colon (principal); D12.3 Benign neoplasm of transverse colon; D12.4 Benign neoplasm of descending colon; K63.5 Polyp of colon; K57.30 Diverticulosis of large intestine without perforation or abscess without bleeding; K64.8 Other hemorrhoids; J44.9 Chronic obstructive pulmonary disease, unspecified; E78.00 Pure hypercholesterolemia, unspecified; I10 Essential (primary) hypertension; Z86.73 Personal history of transient ischemic attack (TIA), and cerebral infarction without residual deficits; F17.210 Nicotine dependence, cigarettes, uncomplicated; E66.9 Obesity, unspecified; Z68.33 Body mass index [BMI] 33.0-33.9, adult; F12.90 Cannabis use, unspecified, uncomplicated
CPT/HCPCS: 45385; 88305; J2704; J7120

== ENCOUNTER 2022-01-24 14:47 | Outpatient (CLI) | payer OTHER, SELFPAY ==
--- NOTE | ~2022-01-24 | CT_ITS ---
EXAMINATION: CT thoracic spine wo con DATE: 01/24/2022 15:04 INDICATION: T3 lytic lesion. Upper back pain. Numbness and tingling in the arms. TECHNIQUE: Computed tomography (CT) of the thoracic spine was performed without intravenous contrast. Automated exposure control and iterative reconstruction technique were employed. The dose-length pro duct was 1465.99 mGy-cm. COMPARISON: Chest CT 10/19/2021, 02/20/2020 FINDINGS: There is diffuse hepatic steatosis. There is 5 degrees levocurvature of upper thoracic spin e. There are Schmorl's nodes at most levels. There is a 9 mm lytic lesion in T3 vertebral body, stabl e from 02/20/2020, likely a hemangioma. There is moderately decreased disc height at T5-T6 and mildly decreased disc height at T3-T4, T4-T5, and T6-T7 through T10-T11. There is multilevel facet joint ost eoarthritis, severe on the right at T2-T3 and T4-T5 and on the left at T4-T5. On the right, there is mild neural foraminal stenosis at T2-T3, T3-T4, T4-T5, and T7-T8. On the left, there is mild neural f oraminal stenosis at T4-T5 and T5-T6. There is mild central canal stenosis at T6-T7. IMPRESSION: 1. Chronic lytic lesion in T3 vertebral body, likely a hemangioma. 2. Moderate thoracic spondylosis. Reviewed, dictated and finalized at location A.
== END 2022-01-24 14:48 | disposition home or self-care (01) ==
PROVIDERS: PCP Internal Medicine; Visit Provider Nurse Practitioner
DX: R93.89 Abnormal findings on diagnostic imaging of other specified body structures (principal); M89.9 Disorder of bone, unspecified; M47.814 Spondylosis without myelopathy or radiculopathy, thoracic region
CPT/HCPCS: 72128

== ENCOUNTER 2022-06-10 08:54 | Outpatient (CLI) | payer OTHER, SELFPAY ==
--- NOTE | ~2022-06-10 | XR_ITS ---
XR_CERV2-3V_CR DATE: 06/10/2022 09:08 INDICATION: Neck pain TECHNIQUE: AP, open mouth, lateral views COMPARISON: None FINDINGS: There is straightening of the cervical spinal which may be due to muscle spasm. There is minimal degenerative disc disease at C2-3, mild degenerative disc disease at C3-4 and C4-5, moderate degenerative disc disease at C5-6 and moderately severe degenerative disc disease at C6-7. There is uncovertebral joint spurring at C5-6 and C6-7. C1 and C2 are normally aligned and the odontoid process is intact. No fracture or dislocation or lock ed facet or prevertebral soft tissue swelling. IMPRESSION: Straightening of the cervical spine, which may be due to muscle spasm; no fracture or dis location or locked facet Cervical spondylosis Reviewed, dictated and finalized at Location A. Reviewed, dictated and finalized at location B. IMPRESSION: Straightening of the cervical spine, which may be due to muscle spa sm; no fracture or dislocation or locked facet Cervical spondylosis
== END 2022-06-10 08:55 | disposition home or self-care (01) ==
LOC: ANHIMG 08:55
PROVIDERS: PCP Internal Medicine; Visit Provider Nurse Practitioner
DX: M54.2 Cervicalgia (principal); M53.82 Other specified dorsopathies, cervical region; M47.812 Spondylosis without myelopathy or radiculopathy, cervical region
CPT/HCPCS: 72040

== ENCOUNTER 2022-09-28 13:22 | Outpatient (CLI) | payer OTHER, SELFPAY ==
--- NOTE | ~2022-09-28 | XR_ITS ---
EXAMINATION: XR chest 2V 09/28/2022 13:40 INDICATION: Chest pain PROCEDURE: 2 view chest COMPARISON: Comparison to multiple prior studies sequentially, with oldest reviewed study dated 03/10. FINDINGS: The lungs are clear. The cardiomediastinal silhouette is within normal limits. There are no pleural effusions. There is no pneumothorax suspected. IMPRESSION: 1: NO ACUTE CARDIOPULMONARY DISEASE. Reviewed, dictated and finalized at location A. CONSULTANT
== END 2022-09-28 13:23 | disposition home or self-care (01) ==
PROVIDERS: PCP Internal Medicine; Visit Provider Internal Medicine
DX: R07.9 Chest pain, unspecified (principal)
CPT/HCPCS: 71046

== ENCOUNTER 2023-01-05 08:19 | Outpatient (CLI) | payer OTHER, SELFPAY ==
--- NOTE | 2023-01-05 08:21 | ECHO_ITS ---
Patient Info Name: Monster Raymundo Age: 62 years : 1960 Gender: Male Ht: 73 in Wt: 245 lbs BSA: 2.42 m2 HR: 68 bpm BP: 151 / 89 mmHg Technical Quality: Poor Exam Date: 01/05/2023 8:52 AM Exam Location: [facility] Patient Status: Outpatient Admit Date: 01/05/2023 Staff Ordering Physician: Jose Berkowitz DO Chemical Educator: Mayra Rosa RDCS Attending Provider: Jose Berkowitz DO Referring Physician: Woo MARTINEZ; Exam Type: CA echo dop color flow w con Study Info Indications - nonrheumatic aortic valve stenosis Complete two-dimensional, color flow and Doppler transthoracic echocardiogram is performed with contrast to opacify the left ventricle and to improve the deliniation of the left ventricle endocardial borders. Contrast/Agitated Saline Contrast/Ag. Saline: Definity Amount: 2.00 ml Administered By: Mayra Rosa [facility] New IV Access: Left Site Condition: IV removed Reason for Poor Study: patient body habitus Summary 1. Definity contrast administered improved wall motion interpretation. 2. Left ventricular chamber dimension is normal. 3. Left ventricular systolic function is normal, estimated at 60-65%. 4. There is moderate concentric increased left ventricular wall thickness. 5. The left ventricular diastolic function is grade I diastolic dysfunction. 6. E/e' 9 is minimally elevated. 7. Moderate lipomatous interatrial septum. 8. There is moderate aortic valve sclerosis. 9. The mitral valve has mildly calcified annulus. 10. There is mild tricuspid valve regurgitation. 11. No pulmonary hypertension, estimated pulmonary arterial systolic pressure is 32 mmHg. Left Ventricle E/e' 9 is minimally elevated. Definity contrast administered improved wall motion interpretation. Left ventricular chamber dimension is normal. Left ventricular systolic function is normal, estimated at 60-65%. There is moderate concentric increased left ventricular wall thickness. The left ventricular diastolic function is grade I diastolic dysfunction. Right Ventricle Right ventricular chamber dimension is normal. Right ventricular systolic function is normal. Left Atria Left atrial chamber dimension is normal. Right Atria Right atrial chamber dimension is normal. Atrial Septum Moderate lipomatous interatrial septum. Aortic Valve The aortic valve is trileaflet. There is moderate aortic valve sclerosis. There is no aortic valve stenosis. There is no aortic valve regurgitation. Pulmonic Valve There is no pulmonic regurgitation. Mitral Valve The mitral valve has mildly calcified annulus. There is no mitral valve stenosis. There is no mitral valve regurgitation. Tricuspid Valve There is mild tricuspid valve regurgitation. No pulmonary hypertension, estimated pulmonary arterial systolic pressure is 32 mmHg. Pericardium/Pleural There is no pericardial effusion. Inferior Vena Cava Normal inferior vena cava with >50% collapse upon inspiration consistent with normal right atrial pressure, 5 mmHg. Aorta The aortic root size at the sinus of Valsalva is normal. Left Ventricular Outflow Tract Name Value Normal LVOT 2D LVOT Diameter
[2023-01-05] MEDS: PERFLUTREN LIPID MICROSPHERES 1.5 ML VIAL DILUTED TO 10 ML TOTAL VOLUME IV PUSH (10:00)
[2023-01-05 10:27] LABS: Alanine Aminotransferase 27 U/L (6-50); Alkaline Phosphatase 106 U/L (38-126); Anion Gap 8 mmol/L (8-16); Aspartate Amino Transferase 29 U/L (17-59); Bilirubin,Total 1.2 mg/dL (0.2-1.3); Blood Urea Nitrogen 15 mg/dL (9-20); Calcium 9.5 mg/dL (8.4-10.2); Carbon Dioxide 28 mmol/L (22-30); Chloride 101 mmol/L (98-107); Cholesterol 168 mg/dL (0-200); Estimated Glomerular Filt Rate > 60; Glucose 91 mg/dL (65-110); HDL Direct 42 mg/dL; Potassium 4.4 mmol/L (3.4-5.0); Sodium 137 mmol/L (137-145); Triglycerides 141 mg/dL (<150)
[2023-01-05 10:39] LABS: LDL Cholesterol Direct 90 mg/dL
[2023-01-05 10:43] LABS: Free T4 Free Thyroxine 1.19 ng/mL (0.78-2.19)
[2023-01-10 13:17] LABS: Vitamin D 1,25 (OH)2 Total 28 pg/mL (18-72); Vitamin D2 1,25 (OH)2 28 pg/mL; Vitamin D3 1,25 (OH)2 <8 pg/mL
== END 2023-01-05 08:20 | disposition home or self-care (01) ==
PROVIDERS: PCP Internal Medicine; Visit Provider Internal Medicine Cardiovascular Disease
DX: I10 Essential (primary) hypertension (principal); E78.00 Pure hypercholesterolemia, unspecified; E55.9 Vitamin D deficiency, unspecified; E03.9 Hypothyroidism, unspecified; I35.0 Nonrheumatic aortic (valve) stenosis; R93.1 Abnormal findings on diagnostic imaging of heart and coronary circulation
CPT/HCPCS: 36415; 80053; 80061; 82652; 84439; 84443; C8929; Q9957

== ENCOUNTER 2023-03-06 10:38 | Outpatient (CLI) | payer OTHER, SELFPAY ==
--- NOTE | ~2023-03-06 | US_ITS ---
EXAMINATION:US venous doppler LE LT INDICATION:Left leg and calf pain TECHNIQUE: Multiple grayscale, color flow and Doppler images of the left lower extremity deep venous systems were obtained and reviewed. COMPARISON:No prior studies for comparison. FINDINGS: The common femoral, superficial femoral and popliteal veins demonstrate normal respiratory variation, augmentation and compressibility. Color flow is also seen within the posterior tibial, pe roneal, greater saphenous and profunda veins. IMPRESSION: 1: No lower extremity deep venous thrombosis. Reviewed, dictated and finalized at location B.
== END 2023-03-06 10:39 | disposition home or self-care (01) ==
PROVIDERS: PCP Nurse Practitioner Family; Visit Provider Nurse Practitioner Family
DX: M79.662 Pain in left lower leg (principal)
CPT/HCPCS: 93971

== ENCOUNTER 2023-04-24 09:30 | Outpatient (RCR) | payer OTHER, SELFPAY ==
--- NOTE | 2023-03-30 13:00 | OPREHPOC ---
Outpatient Therapy Plan of Care This is a Multidisciplinary Plan of Care that may contain components documented by all disciplines (PT, OT, and ST.) PT Problem 1 PT Problem #1 Knowledge Deficit PT Goal 1 Goal Independent with HEP Target Visit 6 PT Problem 2 PT Problem #2 Pain PT Goal 1 Goal reduce pain to 5/10 at baseline Target Visit 6 PT Problem 3 PT Problem #3 Impaired Range of Motion PT Goal 1 Goal improve YONY rotation and side bending to 30 degrees and 1 inch above the knees. both without spasms or cramping Target Visit 6
--- NOTE | 2023-03-30 13:00 | PTOPEVAL1 ---
Assessment and note entered by Lico Garcia, PT Evaluation Information Assessment Status Evaluation Diagnosis low back pain, chronic pain Onset exacerbation 2 weeks ago Subjective Information Patient reports severe increase in pain 2 weeks ago, but feeling better now secondary a tapering steroid pack and increase in his pain meds. Also given muscle relaxer, but does not like it. Patient is having trouble sleeping or doing any activity for more than 10 minutes without needing to sit down. Patient has radiating symptoms down both legs worse on the L with a drop foot. Patient also reports constant cramps in the thoracic area of the spine. Reported Pain Level Pain Score 7: Self Report Assessment PT Clinical Summary Stanislaw is a 63 year old male coming into the clinic with a diagnosis of low back pain and chronic pain .The patient has tightness in the muscles of his back along with multiple trigger points. Strength is grossly 4-4+/5 besides a L drop foot. Patient will start with gentle range of motion, stretching, and core recruitment along with manual and modalities for pain control. Patient is aware that we are not trying to eliminate the pain just reduce the amount. Plan of Care Interventions Electrical Stimulation,Gait Training,Hot Pack/Cold Pack,Manual Therapy,Neuro Re-education,Patient/ Caregiver Education,Therapeutic Activities, Therapeutic Exercise,Ultrasound Other Interventions cupping, taping, IASTM PT Services Indicated Yes Treatment Frequency and 1-2x/wk for 4 weeks Duration These treatments will address the objective and functional deficits as defined above. The patient will be advanced safely and appropriately in order for the patient to progress towards his/her prior level of function. Additional exercises will be introduced and as well as a comprehensive home exercise program upon discharge, if needed, ?to ensure carryover of functional gains achieved in the clinic. This treatment plan has been reviewed and agreement upon by the patient.
--- NOTE | 2023-04-03 10:29 | PCPTNOTE ---
Patient did not show up for scheduled appointment this date; called and left voicemail for reminder on next appointment April 07 @9:30am
--- NOTE | 2023-04-14 15:23 | PCPTNOTE ---
pt cancelled his appointment today due to not feeling well .
--- NOTE | 2023-04-26 11:29 | PCPTNOTE ---
Patient did not show up for scheduled appointment this date, left voicemail to call and see if he would like to reschedule reassessment or be discharged from physical therapy.
--- NOTE | 2023-05-10 11:30 | PCPTNOTE ---
Admitting Provider: Attending Provider: Maria Antonia Tong APRN Patient:Monster Raymundo Date of :1960 Patient has not returned for any further treatments since 04/24/2023, therefore he will be discharged at this time. Patient?s initial visit was on 03/30/2023 11:00 and he had a total of ____6____ visits along with 3 no shows no calls The goals have been not met. Thank you for referring this patient to [facility]. Please review, sign, date and return this discharge summary KIERAN. I have been updated about the patient's current status and I agree with discharge from the above service at this time. Referring Physician Date
== END 2023-05-17 11:52 | disposition home or self-care (01) ==
LOC: ANHPT 09:30
PROVIDERS: PCP Nurse Practitioner Family; Visit Provider Nurse Practitioner Family
DX: M54.50 Low back pain, unspecified (principal); M54.2 Cervicalgia; G89.29 Other chronic pain
CPT/HCPCS: 97014; 97110; 97140; 97161; 99199; G0283

== ENCOUNTER 2023-04-26 15:10 | Outpatient (CLI) | payer OTHER, SELFPAY ==
[2023-04-26 16:14] LABS: Basophils Absolute Auto 0.1 K/mm3 (0.0-0.1); Basophils Percent Auto 0.7 % (0.2-1.2); Eosinophils Absolute Auto 0.3 K/mm3 (0-0.3); Eosinophils Percent Auto 2.8 % (0-4.4); Hematocrit 44.7 % (42.0-52.0); Hemoglobin 15.2 g/dL (14.0-18.0); Immature Granulocyte Absolute 0.04 K/mm3 (0.00-0.031); Immature Granulocyte Percent A 0.3 % (0-0.5); Lymphocytes Absolute Auto 4.29 K/mm3 (0.9-3.2); Lymphocytes Percent Auto 37.3 % (18.3-44.2); Mean Corpuscular Hemoglobin 31.5 pg (26-34); Mean Corpuscular Volume 92.7 fl (80-100); Mean Platelet Volume 11.4 fl (7.4-10.4); Monocytes Absolute Auto 0.8 K/mm3 (0.1-0.6); Monocytes Percent Auto 7.1 % (2.6-8.5); Neutrophils Absolute Auto 5.9 K/mm3 (1.3-6.7); Neutrophils Percent Auto 51.8 % (45.5-73.1); Platelet Count Result 242 k/mm3 (150-375); Red Blood Count 4.82 M/mm3 (4.6-6.20); Red Cell Distribution Width 13.4 % (11.5-14.5); White Blood Count 11.5 K/mm3 (4.5-10.0)
[2023-04-26 16:24] LABS: Alanine Aminotransferase 25 U/L (6-50); Albumin Level 4.4 g/dL (3.5-5.1); Alkaline Phosphatase 79 U/L (38-126); Anion Gap 9 mmol/L (8-16); Aspartate Amino Transferase 31 U/L (17-59); Bilirubin,Total 0.8 mg/dL (0.2-1.3); Blood Urea Nitrogen 14 mg/dL (9-20); Calcium 9.2 mg/dL (8.4-10.2); Carbon Dioxide 25 mmol/L (22-30); Chloride 105 mmol/L (98-107); Estimated Glomerular Filt Rate > 60; Glucose 95 mg/dL (65-110); Potassium 4.2 mmol/L (3.4-5.0); Sodium 139 mmol/L (137-145)
== END 2023-04-26 15:11 | disposition home or self-care (01) ==
PROVIDERS: PCP Nurse Practitioner Family; Visit Provider Nurse Practitioner Family
DX: R93.89 Abnormal findings on diagnostic imaging of other specified body structures (principal); I10 Essential (primary) hypertension; R10.9 Unspecified abdominal pain
CPT/HCPCS: 36415; 80053; 85025

== ENCOUNTER 2023-08-17 13:01 | Outpatient (CLI) | payer OTHER, SELFPAY ==
--- NOTE | ~2023-08-17 | XR_ITS ---
XR lumbar spine 2-3V DATE: 08/17/2023 13:20 INDICATION: Deformity and dorsalis the TECHNIQUE: AP, lateral, coned lateral lumbosacral views COMPARISON: 07/02/2011 lumbar spine FINDINGS: Normal alignment of the lumbar vertebrae. No fracture or bone destruction is evident. The i ncluded lower thoracic and lumbar pedicles are intact. Multilevel degenerative disc disease, mild at L2-3, moderate to moderately severe at L3-4, moderately severe at L4-5 and severe L5-S1. No spondylolisthesis. The included lower thoracic and lumbar pedicles are intact. The sacroiliac joints appear normal. IMPRESSION: Multilevel degenerative disc disease, not appreciably since 07/02/2011 Reviewed, dictated and finalized at location L. IMPRESSION: Multilevel degenerative disc disease, not appreciably since 1
== END 2023-08-17 13:02 | disposition home or self-care (01) ==
PROVIDERS: PCP Nurse Practitioner Family; Visit Provider Nurse Practitioner Family
DX: M43.9 Deforming dorsopathy, unspecified (principal); M51.36 Other intervertebral disc degeneration, lumbar region
CPT/HCPCS: 72100

== ENCOUNTER 2023-12-10 12:07 | Outpatient (CLI) | payer OTHER, SELFPAY ==
--- NOTE | ~2023-12-10 | MR_ITS ---
EXAMINATION: MR lumbar spine wo con DATE: 12/10/2023 12:51 INDICATION: Low back pain, unspecified. TECHNIQUE: Magnetic resonance imaging (MRI) of the lumbar spine was performed without intravenous con trast. Sequences included sagittal T2-weighted FSE, sagittal T2-weighted FS FSE, sagittal T1-weighted FSE, and axial T2-weighted FSE. COMPARISON: Lumbar spine radiographs 08/17/2023 FINDINGS: There is 4 degrees dextrocurvature of lumbar spine. There is a Schmorl's node of superior e ndplate of L1. There is severely decreased disc height from L3-L4 through L5-S1. The distal spinal co rd signal intensity is normal. The conus medullaris is at L1-L2. The following disc levels are specif ically discussed: L1-L2: The disc does not extend beyond the endplate margin. There is moderate bilateral facet joint o steoarthritis. There is no neural foraminal stenosis. There is no central canal stenosis. L2-L3: The disc does not extend beyond the endplate margin. There is severe bilateral facet joint ost eoarthritis. There is no neural foraminal stenosis. There is no central canal stenosis. L3-L4: The disc is bulging and has an annular fissure. There is moderate bilateral facet joint osteoa rthritis. There is moderate bilateral neural foraminal stenosis. There is mild central canal stenosis . L4-L5: The disc is bulging and has an annular fissure. There is moderate right and severe left facet joint osteoarthritis. There is mild right and moderate left neural foraminal stenosis. There is mild central canal stenosis. There are changes of left hemilaminotomy. L5-S1: The disc is bulging and has an annular fissure. There is moderate right and severe left facet joint osteoarthritis. There is moderate bilateral neural foraminal stenosis. There is mild central ca nal stenosis. There are changes of left hemilaminotomy. IMPRESSION: 1. Severe lumbar spondylosis. Reviewed, dictated and finalized at location A. ILIZING MACHINE OPERATOR
== END 2023-12-10 12:08 | disposition home or self-care (01) ==
LOC: ANHIMG 12:10
PROVIDERS: PCP Nurse Practitioner Family; Visit Provider Nurse Practitioner Family
DX: M47.896 Other spondylosis, lumbar region (principal)
CPT/HCPCS: 72148

== ENCOUNTER 2023-12-17 16:03 | Observation (INO) | payer OTHER, SELFPAY ==
[2023-12-17] VITALS (9 sets, daily range): BP systolic 140–172; BP diastolic 70–90; PULSE 78–96; RESP 14–22; TEMP 36.7; O2SAT 98–100
--- NOTE | ~2023-12-17 | US_ITS ---
EXAMINATION: US venous doppler [facility] DATE: 12/18/2023 09:39 INDICATION: Lower limb pain and swelling TECHNIQUE: Grayscale ultrasound images without and with compression and Doppler ultrasound images of the bilateral lower extremity veins were obtained. COMPARISON: None. FINDINGS: The visualized portions of right common femoral vein, profunda (deep) femoral vein, femoral vein, pop liteal vein, posterior tibial veins, peroneal veins, gastrocnemius vein and greater saphenous vein ou tflow are patent. The visualized portions of left common femoral vein, profunda femoral vein, femoral vein, popliteal v ein, posterior tibial veins, peroneal veins, gastrocnemius vein and greater saphenous vein outflow ar e patent. IMPRESSION: 1. No deep venous thrombosis in either lower limb. Reviewed, dictated and finalized at location A. TESTING OPERATOR
--- NOTE | ~2023-12-17 | XR_ITS ---
EXAMINATION: XR chest 2V Exam Date/Time: 12/17/2023 17:05 ACCESS TECH HISTORY: chest pain Comparison: 09/28/2022. RESULT: Lines, tubes, and devices: None. Lungs and pleura: Clear. Cardiomediastinal silhouette: Stable. Other: No acute osseous or upper abdominal finding. IMPRESSION: No acute cardiopulmonary process. Reviewed, dictated and finalized at location K. SS TECH
--- NOTE | 2023-12-17 16:05 | ECG_ITS ---
Measurements Intervals Stigler Rate: 89 P: 28 WA: 185 QRS: 43 QRSD: 94 T: 65 QT: 375 QTc: 457 Interpretive Statements SINUS RHYTHM WITHIN NORMAL LIMITS NO PREVIOUS ECG AVAILABLE FOR COMPARISON Electronically Signed On 12-18-2023 7:04:23 LOBBYIST by Monster Jean M.D.
[2023-12-17 16:39] LABS: Basophils Absolute Auto 0.1 K/mm3 (0.0-0.1); Basophils Percent Auto 0.5 % (0.2-1.2); Eosinophils Absolute Auto 0.3 K/mm3 (0-0.3); Eosinophils Percent Auto 2.4 % (0-4.4); Hematocrit 46.3 % (42.0-52.0); Hemoglobin 15.2 g/dL (14.0-18.0); Immature Granulocyte Absolute 0.04 K/mm3 (0.00-0.031); Immature Granulocyte Percent A 0.3 % (0-0.5); Lymphocytes Absolute Auto 4.33 K/mm3 (0.9-3.2); Lymphocytes Percent Auto 33.1 % (18.3-44.2); Mean Corpuscular HGB Conc 32.8 g/dl (32-36); Mean Corpuscular Hemoglobin 31.6 pg (26-34); Mean Corpuscular Volume 96.3 fl (80-100); Mean Platelet Volume 11.4 fl (7.4-10.4); Monocytes Absolute Auto 0.8 K/mm3 (0.1-0.6); Monocytes Percent Auto 6.3 % (2.6-8.5); Neutrophils Absolute Auto 7.5 K/mm3 (1.3-6.7); Neutrophils Percent Auto 57.4 % (45.5-73.1); Platelet Count Result 230 k/mm3 (150-375); Red Blood Count 4.81 M/mm3 (4.6-6.20); White Blood Count 13.1 K/mm3 (4.5-10.0)
[2023-12-17 16:51] LABS: INR 0.9; Prothrombin Time 12.8 Seconds (11.1-14.7)
[2023-12-17 16:52] LABS: Partial Thromboplastin Time 31.5 SECONDS (22.3-36.8)
[2023-12-17 16:55] LABS: Alanine Aminotransferase 35 U/L (6-50); Albumin Level 4.3 g/dL (3.5-5.1); Alkaline Phosphatase 88 U/L (38-126); Anion Gap 7 mmol/L (8-16); Aspartate Amino Transferase 29 U/L (17-59); Bilirubin,Total 1.1 mg/dL (0.2-1.3); Blood Urea Nitrogen 14 mg/dL (9-20); Carbon Dioxide 22 mmol/L (22-30); Chloride 109 mmol/L (98-107); Estimated CRCL calculation 120 ml/min; Estimated Glomerular Filt Rate > 60; Glucose 119 mg/dL (65-110); Lipase 52 U/L (23-300); Potassium 3.6 mmol/L (3.4-5.0); Sodium 138 mmol/L (137-145)
[2023-12-17 17:06] LABS: Troponin I < 0.012 ng/mL (0.000-0.034)
--- NOTE | 2023-12-17 18:01 | ED.CHESTPAIN ---
HPI - Chest Pain General Chief Complaint: Chest Pain Stated Complaint: Chest pain Time Seen by Provider: 12/17/23 18:01 Source: patient Mode of arrival: ambulatory Limitations: no limitations History of Present Illness HPI narrative: 63 years old white male came to the emergency room by private car complaining of chest pain and shortness of breath. Patient was shopping yesterday, suddenly started feeling like his heart is running fast, associated with shortness of breath, few minutes later started having chest pain 10/10, worse when he takes deep breath, continued all night long, woke up this morning with slight discomfort in the chest 1/10 mainly when he takes deep breath. Patient reports right upper extremity numbness and tingling. Came few hours later after the beginning of the chest pain and fast heart beat symptoms. History of hypertension, hyperlipidemia, hypothyroidism, chronic neck and back pain and surgery, patient does smoke cigarettes, smoked marijuana daily, no alcohol. His mother had heart attack at age 40. Related Data Home Medications Medication Instructions Recorded Confirmed aspirin 81 mg tablet 81 mg PO DAILY 11/30/21 10/18/23 Allergies Allergy/AdvReac Type Severity Reaction Status Date / Time codeine Allergy Unknown Unknown Verified 10/18/23 13:47 cyclobenzaprine Allergy Unknown Unknown Verified 10/18/23 13:47 methocarbamol Allergy Unknown Unknown Verified 10/18/23 13:47 gabapentin AdvReac Mild Agitated Verified 10/18/23 13:47 nalbuphine AdvReac Unknown Vomiting Verified 10/18/23 13:47 PMFSH Past Medical History Medical History Aortic stenosis Arthritis Bowel trouble Cervical radiculopathy Constipation COPD (chronic obstructive pulmonary disease) Depression Difficulty breathing Difficulty sleeping Dyslipidemia Fatigue Head trauma High cholesterol History of colon polyps History of DVT (deep vein thrombosis) History of transient ischemic attack Hypertension Numbness Obstructive sleep apnea (~10/2020) Osteoarthritis Spinal stenosis Tobacco abuse Type 2 diabetes mellitus Vitamin D deficiency Weakness Surgical History Surgical History H/O discectomy History of eye surgery 1963 History of knee surgery Family History Family History Father Family history of lung cancer Alcohol abuse Hypertension Mother Family history of congestive heart failure Hypertension Cerebrovascular accident Sibling Diabetes mellitus Hypertension Depression Anxiety Son Cancer Hypertension Social History Social History Smoking packs per day: 0.75 Smoking cigarettes per day: 15.0 Years smoked: 50 Smoking pack-years: 37.50 Smoking status: Current every day smoker Tobacco type: cigarettes Alcohol intake: former Substance use: current Substance use type: marijuana Other substance usage details: Daily Lack of Transportation: No Lack of Food: Never True Current Housing: I Have Housing Concerned About Future Housing: No Difficulty Paying Gas/Electric Bills: No Difficulty Paying for Meds: No Currently Unemployed: No Education: High School Diploma/GED Difficulty w/ Childcare or Family Care: No Living arrangements: with family Spiritual care concerns: No Course Vital Signs Vital signs: Vital Signs Temperature 36.7 C 12/17/23 16:08 Pulse Rate 96 12/17/23 16:08 Respiratory Rate 14 12/17/23 16:08 Blood Pressure 153/70 H 12/17/23 16:08 Pulse Oximetry 98 12/17/23 16:08 Oxygen Delivery Room Air 12/17/23 16:08 Temperature 36.7 C 12/17/23 16:08 Pulse Rate 83 12/17/23 19:01 Respiratory Rate 21 H 12/17/23 19:01 Blood Pressure 140/75 12/17/23 19:01 Pulse Oximetry 100 12/17/23 20:33 Oxygen Delivery
[2023-12-17] MEDS: ASPIRIN 81 MG CHEWABLE TABLET 324 MG PO (18:22)
[2023-12-17 18:58] LABS: D Dimer 0.47 ug/mL (<0.48)
[2023-12-17 19:04] LABS: Influenza A QL RT-PCR Negative (Negative); Influenza B QL RT-PCR Negative (Negative); RSV RNA, RT-PCR Negative (Negative); SARS-CoV-2 RNA PCR Negative (Negative)
[2023-12-17] MEDS: HYDROcodone/acetaminophen (*CRX) 10-325 MG TABLET 1 TAB PO (19:19)
--- NOTE | 2023-12-17 19:40 | ECG_ITS ---
Measurements Intervals [place] Rate: 75 P: 48 [place]: 192 QRS: 32 QRSD: 90 T: 68 QT: 381 QTc: 428 Interpretive Statements SINUS RHYTHM NORMAL ECG COMPARED TO ECG 12/17/2023 16:09:08 NO SIGNIFICANT CHANGES Electronically Signed On 12-18-2023 18:20:01 COMPUTER EQUIPMENT REPAIRER by Sher Dong M.D.
[2023-12-17 19:53] LABS: Troponin I < 0.012 ng/mL (0.000-0.034)
--- NOTE | 2023-12-17 20:19 | PM.IMHP ---
H&P: HPI History of Present Illness Date/Time: 12/17/23 20:19 Chief Complaint: CHEST PAIN Narrative: This is a 63-year-old male with past medical history significant for COPD/emphysema, tobacco dependence, chronic back pain, hypertension. Patient presents to the emergency room due to chest pain localized to the retrosternal area with radiation to the left arm and shoulder patient presented after he went to grocery shopping while he was at the supermarket denies any nausea, vomiting, had some lightheadedness with it pain has been present now for roughly 18 hours had 4 aspirins on route to the hospital and a nitro sublingual at the time of my visit patient is chest pain-free, notice ankle edema denies any PND or orthopnea however has had shortness of breath has a cough which is productive of white phlegm denies any fevers, rigors, chills, patient smokes up to 2 packs of cigarettes daily. Preliminary workup has been essentially nonrevealing. Patient has been placed in observation for further evaluation management and treatment. EXAMINATION:? XR chest 2V Exam Date/Time:? 12/17/2023 17:05 SURGICAL TRAINING SPECIALIST HISTORY: chest pain ? Comparison:? 09/28/2022. RESULT: Lines, tubes, and devices:? None. Lungs and pleura:? Clear. Cardiomediastinal silhouette:? Stable. Other:? No acute osseous or upper abdominal finding. ? IMPRESSION: No acute cardiopulmonary process. Review of Systems Review of Systems: Chest pain, shortness of breath, bilateral ankle edema Constitutional: Constitutional: Denies chills, Denies fatigue, Denies fever(s) and Denies night sweats Eyes: Eyes: Denies change in vision ENT: Denies dysphagia, Denies nasal congestion and Denies nasal discharge Cardiovascular: Cardiovascular: Reports chest pain, Reports pedal edema, Reports radiating jaw, neck or arm pain, Denies palpitations and Reports dyspnea on exertion Respiratory: Respiratory: Reports cough, Reports dyspnea on exertion and Denies wheezing Gastrointestinal: Gastrointestinal: Denies abdominal pain, Denies dyspepsia, Denies heartburn, Denies diarrhea, Denies nausea and Denies vomiting Genitourinary: Genitourinary: Reports no additional male genitourinary complaints and Reports as per HPI Musculoskeletal: Musculoskeletal: Reports back pain Integumentary/Breasts: Skin/Breast: Denies rash Neurologic: Denies focal weakness and Denies Sensory deficit (Neuro) Psychiatric: Psychiatric: Reports no additional psychiatric complaints and Reports as per HPI Endocrine: Endocrine: Denies cold intolerance, Denies deepening of the voice, Denies heat intolerance, Denies increase in ring/shoe/hat size, Denies polyphagia, Denies polydipsia and Denies palpitations Hematologic/Lymphatic: Hematologic/Lymphatic: Reports no additional hematologic/lymphatic complaints and Reports as per HPI Allergic/Immunologic: Allergic/Immunologic: Reports no additional allergic/immunologic complaints and Reports as per HPI PMF Past Medical History Medical History (Updated 12/18/23 @ 02:31 by Charlee Chapin MD) Aortic stenosis Arthritis Bowel trouble Cervical radiculopathy Constipation COPD (chronic obstructive pulmonary disease) Depression Difficulty breathing Difficulty sleeping Dyslipidemia Fatigue Head trauma High cholesterol History of colon polyps History of DVT (deep vein thrombosis) History of transient ischemic attack Hypertension Numbness Obstructive sleep apnea (~10/2020) Osteoarthritis Spinal stenosis Tobacco abuse Type 2 diabetes mellitus Vitamin D deficiency Weakness Surgical History Surgical History H/O discectomy History of eye surgery 1963 History of knee surgery Family History Family History (Updated 12/18/23 @ 02:23 by Karla Romero RN) Father Alcohol abuse Hypertension Lung cancer Mother Hypertension Cerebrovascular accident CHF (congestive heart failure) Sibling
--- NOTE | 2023-12-17 23:14 | PC.NURSE ---
pt care and report given to JONAS Smith. all questions answered.
[2023-12-18] VITALS (13 sets, daily range): BP systolic 158–216; BP diastolic 83–107; PULSE 71–86; RESP 18; TEMP 36.3–36.9; O2SAT 95–99; BMI 33.0
--- NOTE | 2023-12-18 | ECHO_ITS ---
Patient Info Name: Monster Raymundo Age: 63 years : 1960 Gender: Male Ht: 73 in Wt: 250 lbs BSA: 2.45 m2 HR: 80 bpm BP: 158 / 86 mmHg Heart Rhythm: Sinus Rhythm Technical Quality: Fair Exam Date: 12/18/2023 10:17 AM Exam Location: Echo Lab Patient Status: Outpatient Admit Date: 12/17/2023 Staff Ordering Physician: Charlee Chapin MD Ruffling Hemmer Automatic: Catrina Ware RDCS Attending Provider: Charlee Chapin MD Referring Physician: Tavares MUNOZ; Exam Type: CA echo dop color flow w con Study Info Indications R07.9 - Chest pain, unspecified Complete two-dimensional, color flow and Doppler transthoracic echocardiogram is performed with contrast to opacify the left ventricle and to improve the deliniation of the left ventricle endocardial borders. Contrast/Agitated Saline Contrast/Ag. Saline: Definity Amount: 2.00 ml Administered By: Catrina Ware RDCS Existing IV Access: Yes IV Access Condition: patent with no signs of infiltration Summary 1. Technically difficult study with limited views. Definity contrast administered. 2. Left ventricular chamber dimension is normal. 3. Left ventricular systolic function is normal, estimated at 65-70%. 4. There is mildly increased left ventricular wall thickness. 5. The left ventricular diastolic function is grade I diastolic dysfunction. 6. There is no aortic valve stenosis. 7. There is trace mitral valve regurgitation. 8. There is trace tricuspid valve regurgitation. 9. No pulmonary hypertension, estimated pulmonary arterial systolic pressure is 25 mmHg. 10. There is small pericardial effusion. Left Ventricle Left ventricular chamber dimension is normal. Left ventricular systolic function is normal, estimated at 65-70%. There is mildly increased left ventricular wall thickness. The left ventricular diastolic function is grade I diastolic dysfunction. Technically difficult study with limited views. Definity contrast administered. Right Ventricle Right ventricular chamber dimension is normal. Right ventricular systolic function is normal. Left Atria Left atrial chamber dimension is normal. Right Atria Right atrial chamber dimension is normal. Aortic Valve The aortic valve is not well visualized. There is mild aortic valve sclerosis. There is no aortic valve stenosis. There is no aortic valve regurgitation. Pulmonic Valve The pulmonic valve is not well visualized. Mitral Valve The mitral valve has normal leaflets. There is trace mitral valve regurgitation. There is mild mitral valve calcification. Tricuspid Valve The tricuspid valve leaflets are normal. There is trace tricuspid valve regurgitation. No pulmonary hypertension, estimated pulmonary arterial systolic pressure is 25 mmHg. Pericardium/Pleural The pericardium appears normal. There is small pericardial effusion. Aorta The aortic root size at the sinus of Valsalva is normal. There is mild aortic atherosclerosis. Left Ventricular Outflow Tract Name Value Normal LVOT 2D LVOT Diameter 2.11 cm LVOT Doppler LVOT Peak Gradient 4 mmHg LVOT Mean Gradient 2 mmHg
[2023-12-18] MEDS: HYDROcodone/acetaminophen (*CRX) 10-325 MG TABLET 1 TAB PO ×3 (00:36→12:14)
--- NOTE | 2023-12-18 01:07 | ADMGEN ---
This patient, Monster Raymundo, was admitted to IMU Room 207-01. Patient/family oriented to hospital policies and general routines including ID bracelet, bed and alarms, visiting hours, pain management, procedures, bathroom and other care routines, personal items, smoking policy, room service/diet, and visiting hours. Information on how to activate the Rapid Response Team has been discussed. Patient/Family are encouraged to report perceived risks to care and to ask questions if they do not understand what they are told or what they should do.
[2023-12-18 03:42] LABS: Cholesterol 141 mg/dL (0-200); HDL Direct 39 mg/dL; Triglycerides 150 mg/dL (<150)
[2023-12-18 03:53] LABS: LDL Cholesterol Direct 80 mg/dL
[2023-12-18 03:54] LABS: Troponin I < 0.012 ng/mL (0.000-0.034)
[2023-12-18] MEDS: LEVOTHYROXINE SODIUM 50 MCG TABLET PO (06:25)
[2023-12-18] MEDS: ASPIRIN 81 MG ENTERIC TABLET PO (09:50)
[2023-12-18] MEDS: LOSARTAN POTASSIUM 100 MG TABLET PO (09:50)
--- NOTE | 2023-12-18 10:19 | ECG_ITS ---
Measurements Intervals [place] Rate: 82 P: 41 MD: 184 QRS: 37 QRSD: 91 T: 70 QT: 375 QTc: 439 Interpretive Statements SINUS RHYTHM BASELINE ARTIFACT BORDERLINE ECG COMPARED TO ECG 12/17/2023 19:40:15 NO SIGNIFICANT CHANGES Electronically Signed On 12-18-2023 18:28:04 THERMOSTAT REPAIRER by Sher Dong M.D.
[2023-12-18] MEDS: PERFLUTREN LIPID MICROSPHERES 1.5 ML VIAL DILUTED TO 10 ML TOTAL VOLUME IV PUSH (10:38)
--- NOTE | 2023-12-18 11:54 | IVDEFINITY ---
Prior to administration of IV Definity the patient was educated on the risks and benefits of the imaging enhancing agent including potential adverse side effects. The patient verbalized understanding. Allergies were verified. No exclusion criteria were identified and at least one of the following inclusion criteria were met: 1) physician request, 2) patient technically difficult to image (per the [place] [employer]ocardi[employer] guidelines of two or more segments not discernable within the apical view), or 3) questionable left ventricular function. ?
--- NOTE | 2023-12-18 12:19 | PC.NURSE ---
Patients significant other brought in [place] pain medication from home. Primary nurse educated patient and significant other that patient cannot take home pain medication and that the care team of the hospital was monitoring pain. Primary nurse asked for medication to put in lock box. The significant other stated she would take medication back home with her.
--- NOTE | 2023-12-18 12:47 | PM.IMPN ---
Subjective Date/time seen: 12/18/23 12:47 Objective Data Vital Signs Vital Signs: Vital Signs - 24 hr 12/17/23 16:08 12/17/23 18:22 12/17/23 18:22 Temperature 36.7 C Pulse Rate 96 79 Respiratory Rate 14 Blood Pressure 153/70 H Pulse Oximetry 98 99 Oxygen Delivery Room Air Room Air 12/17/23 17:52 12/17/23 18:02 12/17/23 18:24 Temperature Pulse Rate 94 93 87 Respiratory Rate 21 H 21 H 22 H Blood Pressure Pulse Oximetry 99 99 98 Oxygen Delivery 12/17/23 19:01 12/17/23 20:33 12/17/23 20:30 Temperature Pulse Rate 83 Respiratory Rate 21 H Blood Pressure 140/75 172/90 H Pulse Oximetry 99 100 Oxygen Delivery 12/17/23 21:00 12/18/23 01:20 12/18/23 02:00 Temperature 36.8 C Pulse Rate 78 71 74 Respiratory Rate 21 H 18 Blood Pressure 166/90 H Pulse Oximetry 99 98 Oxygen Delivery 12/18/23 02:00 12/18/23 04:00 12/18/23 04:00 Temperature Pulse Rate 75 Respiratory Rate Blood Pressure Pulse Oximetry 95 98 Oxygen Delivery Room Air Room Air 12/18/23 04:52 12/18/23 06:00 12/18/23 07:44 Temperature 36.9 C 36.6 C Pulse Rate 80 82 81 Respiratory Rate 18 18 Blood Pressure 158/86 H 186/88 H Pulse Oximetry 98 97 Oxygen Delivery 12/18/23 08:00 12/18/23 08:00 12/18/23 10:00 Temperature Pulse Rate 86 75 Respiratory Rate Blood Pressure Pulse Oximetry Oxygen Delivery Room Air 12/18/23 11:57 12/18/23 12:19 Temperature 36.3 C L Pulse Rate 78 Respiratory Rate 18 Blood Pressure 213/107 H 216/96 H Pulse Oximetry 99 Oxygen Delivery Intake/Output Intake/Output: Intake & Output 12/15/23 12/16/23 12/17/23 12/18/23 23:59 23:59 23:59 23:59 Intake Total 340 Output Total 300 Balance 40 Meds/Results Medications: Active Medications Generic Name Dose Route Start Last Admin Trade Name Freq PRN Reason Stop Dose Admin Acetaminophen 650 mg 12/17/23 20:48 Acetaminophen 325 Mg Tablet PO Q4H PRN Mild Pain (1-3) or Fever Hydrocodone Bitart/Acetaminophen 1 tab 12/18/23 00:27 12/18/23 12:14 Hydrocodone/Acetaminophen (*Crx) 10-325 Mg Tablet PO 1 tab Q6H PRN Administration Pain Rated 7-10 Hydrocodone Bitart/Acetaminophen 1 tab 12/18/23 03:02 Hydrocodone/Acetaminophen (*Crx) 5-325 Mg Tablet PO Q6H PRN pain 4-6 Aspirin 81 mg 12/18/23 09:00 12/18/23 09:50 Aspirin 81 Mg Enteric Tablet PO 01/17/24 08:59 81 mg DAILY [facility] Administration Atorvastatin Calcium 20 mg 12/18/23 21:00 Atorvastatin 20 Mg Tablet BY MOUTH [facility] Ergocalciferol 50,000 units 12/19/23 09:00 Ergocalciferol 50,000 Units Capsule PO Tu@0900 [facility] Levothyroxine Sodium 50 mcg 12/18/23 06:30 12/18/23 06:25 Levothyroxine Sodium 50 Mcg Tablet PO 50 mcg DAILY@0630 [facility] Administration Losartan Potassium 100 mg 12/18/23 09:00 12/18/23 09:50 Losartan Potassium 100 Mg Tablet PO 100 mg DAILY [facility] Administration Miscellaneous Information 0 each 12/18/23 00:01 Plecanatide Nonform He Does Not Have Anyone To Bring In His Plecanatide From Home. Hold Wh XX 01/17/24 00:00 CLARIFY [facility] Nicotine 1 patch 12/18/23 09:00 12/18/23 09:54 Nicotine (*Pbkc) 21 Mg Patch TRANSDERM Not Given DAILY [facility] Nitroglycerin 0.4 mg 12/17/23 20:48 Nitroglycerin Sl 0.4 Mg Tablet SUBLINGUAL Q5MIN PRN Chest Pain Non-Formulary Medication 3 mg 12/18/23 09:00 Plecanatide PO 01/17/24 08:59 DAILY [facility] Radiology Results: ITS Impressions Chest X-Ray 12/17/23 17:34 IMPRESSION: No acute cardiopulmonary process. Venous Doppler Study 12/18/23 09:41 IMPRESSION: 1. No deep venous thrombosis in either lower limb. Labs Labs: Laboratory Results - last 24 hr 12/17/23 12/17/23 12/17/23 16:19 18:18 19:22 WBC 13.1 H RBC 4.81 Hgb 15.2 Hct 46.3 MCV 96.3 MCH 31.6 MCHC 32.8 RDW 13.0 Plt
--- NOTE | 2023-12-18 14:26 | PM.CNCAR ---
Assessment and Plan Assessment and plan (1) Chest pain: Qualifiers: Chest pain type: other chest pain Qualified Code(s): R07.89 - Other chest pain Code(s): R07.9 - Chest pain, unspecified Status: Acute Assessment and Plan: Atypical, persistent chest pain would out for myocardial infarction with negative serial cardiac enzymes, normal ECG without ischemic changes. Chest pain was persistent despite activity. Echocardiogram without new dysfunction or wall motion abnormalities. Advised ischemic workup. Patient prefers to follow up as an outpatient with his molded goods inspector trimmer as opposed staying overnight for stress testing tomorrow morning. Patient is otherwise hemodynamically stable and has been asymptomatic ambulating since admission. Discussed risks and benefits with this approach. Patient verbalized understanding agreed to proceed as above. Disposition per hospitalist service. Should he have recurrent and/or severe chest pain to return to the ER immediately via EMS. Continue aspirin 81 mg daily in the interval. (2) Uncontrolled hypertension: Code(s): I10 - Essential (primary) hypertension Status: Acute Assessment and Plan: Blood pressure was significantly elevated earlier today but improving prior to discharge. Continue losartan 100 mg daily. Add additional antihypertensive therapy for BP. Monitor BP at home call with readings. (3) Dyslipidemia: Code(s): E78.5 - Hyperlipidemia, unspecified Status: Acute Assessment and Plan: Continue atorvastatin 20 mg at bedtime. (4) Type 2 diabetes mellitus: Qualifiers: Diabetes mellitus complication status: without complication Diabetes mellitus jail insulin use: without coin rolling machine operator use Qualified Code(s): E11.9 - Type 2 diabetes mellitus without complications Code(s): E11.9 - Type 2 diabetes mellitus without complications Status: Acute Assessment and Plan: Management per primary service. (5) COPD (chronic obstructive pulmonary disease): Code(s): J44.9 - Chronic obstructive pulmonary disease, unspecified Status: Acute Assessment and Plan: Smoking cessation counseling. COPD management per primary service. (6) Tobacco dependence: Code(s): F17.200 - Nicotine dependence, unspecified, uncomplicated Status: Acute Assessment and Plan: Smoking cessation counseling. History of Present Illness History of Present Illness Consult date/time: Date of service: 12/18/23 14:26 Requesting physician: Elio Vaz APRN Consult reason: chest pain Reason For Visit: CHEST PAIN, DYSPNEA Narrative: The patient is a 63-year-old male with past medical history significant tobacco abuse, COPD, hypertension, hyperlipidemia who presents emergency department with complaints of chest pain shortness of breath. Patient states he was shopping yesterday developed rapid palpitations along with nausea, lightheadedness chest pain with radiation to left arm and shoulder that improved lying down but did not resolve. Symptoms were persistent for greater than 18 hours as he woke thin with the same symptoms and then presented to ER. He was given sublingual nitroglycerin and aspirin and his symptoms eventually resolved. He denies new or progressive exertional dyspnea other than his baseline. He continues to smoke. He has not had symptoms similar to this in the past. He has no prior known history of CAD and had a negative stress test 3 years ago. He is followed by Dr. Berkowitz he is out of town. Serial troponins negative, ECG normal without ischemic changes. Patient is completely asymptomatic at this time and feels well enough to go home. He ate breakfast this morning and was not a candidate for noninvasive ischemic evaluation today. 2D echocardiogram was reviewed did not reveal new wall motion abnormalities or LV dysfunction. Patient is he wished to be discharged home to follow up
--- NOTE | 2023-12-18 14:47 | PM.DS ---
DS: Admitting Diagnosis Discharge Date 12/18/2023 Admitting Diagnosis Chest pain, COPD, tobacco dependence, hypertension, high cholesterol, obstructive sleep apnea, chronic low back pain DS: Discharge Diagnosis Discharge Diagnosis (1) Chest pain: Qualifiers: Chest pain type: other chest pain Qualified Code(s): R07.89 - Other chest pain Code(s): R07.9 - Chest pain, unspecified Status: Acute (2) COPD (chronic obstructive pulmonary disease): Code(s): J44.9 - Chronic obstructive pulmonary disease, unspecified Status: Acute (3) Tobacco dependence: Code(s): F17.200 - Nicotine dependence, unspecified, uncomplicated Status: Acute (4) Hypertension: Qualifiers: Hypertension type: primary hypertension Qualified Code(s): I10 - Essential (primary) hypertension Code(s): I10 - Essential (primary) hypertension Status: Acute (5) High cholesterol: Code(s): E78.00 - Pure hypercholesterolemia, unspecified Status: Acute (6) Obstructive sleep apnea: Onset Date: ~10/2020 Code(s): G47.33 - Obstructive sleep apnea (adult) (pediatric) Status: Acute (7) Chronic low back pain: Qualifiers: Back pain laterality: unspecified Sciatica presence: unspecified whether sciatica present Qualified Code(s): M54.50 - Low back pain, unspecified; G89.29 - Other chronic pain Code(s): M54.50 - Low back pain, unspecified; G89.29 - Other chronic pain Status: Acute DS: Summary Hospital Course Hospital Course: This is a 63-year-old male patient who was admitted to the hospital for central chest pain worse with taking a deep breath. CTA of the chest was negative in the emergency department. He was admitted for echocardiogram and Cardiology consult. Patient kept leaving the floor to try to smoke cigarettes and drink coffee. He was stopped by nursing staff several times. I also spoke to him and said that we could not condone behavior of leaving the floor. Immediately after I spoke to the patient he left the floor again. The IMU staff called me to come and speak to the patient. I informed them that I just spoke to the patient and that if he was still leaving the floor they needed to contact security. Security must have spoken to the patient and I received another call saying that the patient had left against medical advice. Cardiology was planning to discharge if echocardiogram was okay and have him complete outpatient stress test. However, before being able to arrange this patient had left the building. Additionally echocardiogram was not read before patient left the building. Time spent discussing smoking cessation with patient: 3 to 10 minutes Status at Discharge Cognitive/behavioral status at discharge: Awake alert oriented Functional status at discharge: independent ambulation Overall status at discharge: patient is back to baseline Time Spent with Patient Time attestation: Total time spent providing and/or coordinating discharge services: 20 minutes Time spent: Less than 30 minutes Exam Narrative: GENERAL: Well-appearing, well-nourished, and in no acute distress. HEAD: Normocephalic, atraumatic. ENT:? Mucous membranes moist. CHEST: Clear to auscultation.? No respiratory distress. HEART: Regular rate and rhythm. ? Normal peripheral pulses. ABDOMEN: Soft, nontender, nondistended. EXTREMITIES: Normal range of motion. No peripheral edema. SKIN: Warm dry normal color NEURO: Alert and oriented x3. PSYCH: Normal mood and affect DS: Data Data Completed and Pending Completed studies during hospitalization: Bilateral lower extremity venous Doppler Pending studies at discharge: Echocardiogram has been captured but not read. Labs on day of discharge: Labs from last 24 hours 12/18/23 12/18/23 12/18/23 03:26 03:26 03:26 WBC RBC Hgb Hct MCV MCH MCHC RDW Plt Count MPV Immatu
== END 2023-12-18 06:00 | disposition left against medical advice (07) ==
LOC: ANHED 20:47 → ANHIMU 22:55
PROVIDERS: Preventive Medicine Aerospace Medicine; Admitting Provider Internal Medicine; Emergency Provider Emergency Medicine; PCP Nurse Practitioner Family; Visit Provider Internal Medicine
DX: R07.9 Chest pain, unspecified (principal); R06.02 Shortness of breath; I10 Essential (primary) hypertension; E03.9 Hypothyroidism, unspecified; F17.210 Nicotine dependence, cigarettes, uncomplicated; F12.90 Cannabis use, unspecified, uncomplicated; J44.9 Chronic obstructive pulmonary disease, unspecified; F32.A Depression, unspecified; E78.00 Pure hypercholesterolemia, unspecified; G47.33 Obstructive sleep apnea (adult) (pediatric); E11.9 Type 2 diabetes mellitus without complications; M54.50 Low back pain, unspecified; G89.29 Other chronic pain; E55.9 Vitamin D deficiency, unspecified; Z86.718 Personal history of other venous thrombosis and embolism; Z79.82 Long term (current) use of aspirin; Z86.73 Personal history of transient ischemic attack (TIA), and cerebral infarction without residual deficits; Z79.891 Long term (current) use of opiate analgesic; Z20.822 Contact with and (suspected) exposure to COVID-19
CPT/HCPCS: 36415; 71046; 80053; 80061; 83690; 84443; 84484; 85025; 85380; 85610; 85730; 87637; 93005; 93970; 96374; 99285; A9270; C8929; G0378; G0379; Q9957

== ENCOUNTER 2024-01-18 09:17 | Outpatient (CLI) | payer OTHER, SELFPAY ==
--- NOTE | ~2024-01-18 | NM_ITS ---
EXAMINATION: NM trinity stress w perfusion DATE: 01/18/2024 11:06 INDICATION: Chest pain TECHNIQUE: Rest images were obtained following intravenous administration of 9 mCi Tc99m tetrofosmin (Myoview). The patient was infused intravenously with Lexiscan (Regadenoson). Then, 28.5 mCi Tc99m te trofosmin (Myoview) was administered intravenously, and stress images were obtained. Data was reconst ructed into short axis and horizontal and vertical long axis SPECT images. Gated SPECT images were al so obtained. COMPARISON: None. FINDINGS: There is no definite reversible or fixed perfusion abnormality to suggest ischemia or infar ction. There is normal left ventricular chamber size, wall motion and ejection fraction. Left ventr icular ejection fraction measures 70%. IMPRESSION: 1. Normal myocardial perfusion at rest and during stress. 2. Left ventricular ejection fraction measuring 70%. Reviewed, dictated and finalized at location A.
--- NOTE | 2024-01-18 09:31 | EST_ITS ---
Patient Info Name: Monster Raymundo Age: 63 years : 1960 Gender: Male Ht: 73 in Wt: 250 lbs BSA: 2.45 m2 HR: 83 bpm BP: 144 / 78 mmHg Heart Rhythm: Sinus Rhythm Exam Date: 01/18/2024 10:18 AM Exam Location: Echo Lab Patient Status: Outpatient Admit Date: 01/18/2024 Staff Ordering Physician: Jose Berkowitz DO Attending Provider: Jose Berkowitz DO Exercise Technologist: Alis Goldstein CT Exercise Physician: Jose Berkowitz DO Exam Type: CA stress trinity w NM Study Info Indications R07.89 - Other chest pain A regadenoson stress test was performed. Summary 1. 1. Negative lexiscan stress test for ischemic ST changes by ECG criteria. 2. 2. Baseline hypertension. 3. 3. Nuclear scan to follow and will be reported separately. Please correlate with it. 4. 4. Patient informed of the above results. Protocol: Lexiscan Stress ECG Details Stage: REST Duration (min): 0 min : 54 sec HR (bpm): 82 SBP (mmHg): 144 DBP (mmHg): 78 Stage: REST Duration (min): 6 min : 8 sec HR (bpm): 77 SBP (mmHg): 144 DBP (mmHg): 78 Stage: STAGE 1 Duration (min): 1 min : 0 sec HR (bpm): 89 SBP (mmHg): 134 DBP (mmHg): 80 Stage: RECOVERY Duration (min): 1 min : 0 sec HR (bpm): 100 SBP (mmHg): 134 DBP (mmHg): 80 Stage: RECOVERY Duration (min): 2 min : 0 sec HR (bpm): 105 SBP (mmHg): 134 DBP (mmHg): 80 Stage: RECOVERY Duration (min): 3 min : 0 sec HR (bpm): 108 SBP (mmHg): 157 DBP (mmHg): 89 Stage: RECOVERY Duration (min): 3 min : 9 sec HR (bpm): 109 SBP (mmHg): 157 DBP (mmHg): 89 Rest HR: 77 bpm Peak HR: 108 bpm Rest Sys BP: 144 mmHg Peak Sys BP: 157 mmHg Max Pred HR: 155 bpm % Max Pred HR: 70 % Target HR: 132 bpm Max RPP: 16,956 bpm*mmHg Termination Reason: Completed protocol Cardiac Symptoms: Shortness of breath Total Time: 1 min : 0 sec Rest Paredes BP: 78 mmHg Peak Paredes BP: 89 mmHg Total Dose: 0.4 mg Resting ECG Sinus rhythm. Stress ECG No ST changes. Arrhythmias None. Report Signatures
== END 2024-01-18 09:18 | disposition home or self-care (01) ==
LOC: ANHCARD 09:20
PROVIDERS: PCP Nurse Practitioner Family; Visit Provider Internal Medicine Cardiovascular Disease
DX: R07.89 Other chest pain (principal)
CPT/HCPCS: 78452; 93017; A9502; J2785

== ENCOUNTER 2024-04-01 13:58 | Outpatient (CLI) | payer OTHER, SELFPAY ==
--- NOTE | ~2024-04-01 | CT_ITS ---
Non-contrast CT scan of the Abdomen and Pelvis Clinical indication: Other specified disorder of adrenal gland Technique: 2.5 mm axial scans were obtained through the abdomen and pelvis without intravenous or or al contrast. Dose reduction technique was used on this scan by utilizing automated exposure control a nd iterative reconstruction technique. The dose-length product (DLP) was 1212.48 mGy-cm. COMPARISON: 04/04/2023 Findings: Images through the lung bases reveal no abnormalities. There is no evidence of renal or ureteral calculi. The kidneys and the ureters are nondilated. There is diffuse hepatic steatosis. The spleen, pancreas, gallbladder, and left adrenal gland appear normal. Possible small right adrenal nodule present, unchanged. There are atherosclerotic calcificati ons of the aorta. There is no evidence of bowel obstruction. Sigmoid diverticulosis noted. Appendix is prominent at 12 mm, with possible mild periappendiceal inflammatory change present. Images through the pelvis were performed. There is no evidence of ascites or lymphadenopathy. Urinary bladder unremarkable. No pelvic mass seen. Impression: Findings which raises the possibility of early acute appendicitis. Correlate clinically. Diffuse hepatic steatosis. Possible small right adrenal nodule, unchanged. Reviewed, dictated and finalized at location M. Impression: Findings which raises the possibility of early acute appendicitis. Correlate cl inically. Diffuse hepatic steatosis. Possible small right adrenal nodule, unchanged.
[2024-04-01 14:59] LABS: Basophils Percent Auto 0.3 % (0.2-1.2); Eosinophils Percent Auto 0.1 % (0-4.4); Hematocrit 48.5 % (42.0-52.0); Hemoglobin 16.4 g/dL (14.0-18.0); Immature Granulocyte Absolute 0.12 K/mm3 (0.00-0.031); Immature Granulocyte Percent A 0.9 % (0-0.5); Lymphocytes Absolute Auto 2.25 K/mm3 (0.9-3.2); Lymphocytes Percent Auto 16.1 % (18.3-44.2); Mean Corpuscular HGB Conc 33.8 g/dl (32-36); Mean Corpuscular Volume 94.5 fl (80-100); Mean Platelet Volume 11.4 fl (7.4-10.4); Monocytes Absolute Auto 0.6 K/mm3 (0.1-0.6); Monocytes Percent Auto 4.4 % (2.6-8.5); Neutrophils Percent Auto 78.2 % (45.5-73.1); Platelet Count Result 168 k/mm3 (150-375); Red Blood Count 5.13 M/mm3 (4.6-6.20); Red Cell Distribution Width 13.1 % (11.5-14.5)
[2024-04-01 15:14] LABS: Alanine Aminotransferase 34 U/L (6-50); Albumin Level 4.4 g/dL (3.5-5.1); Alkaline Phosphatase 81 U/L (38-126); Anion Gap 9 mmol/L (4-12); Aspartate Amino Transferase 35 U/L (17-59); Blood Urea Nitrogen 21 mg/dL (9-20); Calcium 8.4 mg/dL (8.4-10.2); Carbon Dioxide 21 mmol/L (22-30); Chloride 101 mmol/L (98-107); Estimated Glomerular Filt Rate > 60; Glucose 107 mg/dL (65-110); Potassium 3.4 mmol/L (3.4-5.0); Sodium 131 mmol/L (137-145)
[2024-04-01 15:42] LABS: Prostate Specific Antigen 0.5 ng/mL (< OR = 4.0)
[2024-04-01 16:43] LABS: Hemoglobin A1C 5.7 % (<5.7)
[2024-04-02 22:54] LABS: Amphetamines NEGATIVE ng/mL (<500); Barbiturates NEGATIVE ng/mL (<300); Benzodiazepines POSITIVE ng/mL (<100); Cocaine Metabolite NEGATIVE ng/mL (<150); Marijuana Metabolite POSITIVE ng/mL (<20); Methadone Metabolite NEGATIVE ng/mL (<100); Opiates POSITIVE ng/mL (<100); Oxidant NEGATIVE mcg/mL (<200); pH 6.1 (4.5-9.0)
== END 2024-04-01 13:59 | disposition home or self-care (01) ==
PROVIDERS: PCP Nurse Practitioner Family; Visit Provider Nurse Practitioner Family
DX: Z12.5 Encounter for screening for malignant neoplasm of prostate (principal); E03.9 Hypothyroidism, unspecified; E27.8 Other specified disorders of adrenal gland; E55.9 Vitamin D deficiency, unspecified; E66.9 Obesity, unspecified; E78.5 Hyperlipidemia, unspecified; F17.200 Nicotine dependence, unspecified, uncomplicated; F32.A Depression, unspecified; F41.9 Anxiety disorder, unspecified; G47.33 Obstructive sleep apnea (adult) (pediatric); G89.29 Other chronic pain; I10 Essential (primary) hypertension; J44.9 Chronic obstructive pulmonary disease, unspecified; M54.50 Low back pain, unspecified; R07.9 Chest pain, unspecified; R73.03 Prediabetes
CPT/HCPCS: 36415; 74176; 80053; 80307; 83036; 84153; 85025; G0103

== ENCOUNTER 2024-04-02 16:23 | Day surgery (SDC) | payer OTHER, SELFPAY ==
[2024-04-02 16:30] VITALS: BP 148/83; PULSE 102; RESP 16; TEMP 36.9; O2SAT 100
--- NOTE | 2024-04-02 16:37 | ED.GENADULT ---
HPI - General Adult General Chief complaint: Recheck/Abnormal Lab/Rx Stated complaint: appy Time Seen by Provider: 04/02/24 16:34 Source: patient Mode of arrival: ambulatory Limitations: no limitations History of Present Illness HPI narrative: 64yo male with HTN and thyroid dysfunction presents as directed by PCP after an outpatient CT raised concern for acute appendicitis. He notes that he has been having RLQ for the past several months intermittently but it returned around the first of the month and remained sustained which was unusual. He attributed this to some salami he ate. LBM 5 days ago. He has chronic issues with bowel movements and is on Trulance for this. PEPE 4pm. Not on anticoagulation. He endorses subjective fevers with chills, nausea, and 1 episode of NBNB emesis. Increased fatigue and myalgias. No complications with prior surgeries/anesthesia. No prior abdominal surgeries. Chronic back and neck pain for which he is on opiates. Other meds include BP meds (unknown) and levothyroxine, hydrocodone 10-325. Related Data Home Medications Medication Instructions Recorded Confirmed aspirin 81 mg tablet 81 mg PO DAILY 11/30/21 03/13/24 Allergies Allergy/AdvReac Type Severity Reaction Status Date / Time codeine Allergy Unknown Unknown Verified 04/02/24 16:27 cyclobenzaprine Allergy Unknown Unknown Verified 04/02/24 16:27 methocarbamol Allergy Unknown Unknown Verified 04/02/24 16:27 gabapentin AdvReac Mild Agitated Verified 04/02/24 16:27 nalbuphine AdvReac Unknown Vomiting Verified 04/02/24 16:27 [facility] Past Medical History Medical History (Updated 04/03/24 @ 11:20 by Radha Velasquez MD) Aortic stenosis Arthritis Bowel trouble Cervical radiculopathy Chronic back pain Chronic neck pain Chronic prescription opiate use Constipation COPD (chronic obstructive pulmonary disease) Depression Difficulty breathing Difficulty sleeping Dyslipidemia Fatigue Head trauma High cholesterol History of colon polyps History of DVT (deep vein thrombosis) History of transient ischemic attack Hypertension Numbness Obstructive sleep apnea (~10/2020) Osteoarthritis Spinal stenosis Thyroid dysfunction Tobacco abuse Vitamin D deficiency Weakness Surgical History Surgical History (Updated 04/03/24 @ 11:20 by Radha Velasquez MD) H/O discectomy x2 History of eye surgery 1963 History of knee surgery Family History Family History Father Alcohol abuse Hypertension Lung cancer Mother Hypertension Cerebrovascular accident CHF (congestive heart failure) Sibling Diabetes mellitus Anxiety Depression Hypertension Son Cancer Hypertension Social History Social History Smoking packs per day: 1 Smoking cigarettes per day: 20.0 Years smoked: 55 Smoking pack-years: 55.00 Smoking status: Current every day smoker Tobacco type: cigarettes Second hand tobacco smoke exposure: Yes Additional smoking assessment comments: Daily marijuana Alcohol intake: never Substance use: current Substance use type: marijuana Other substance usage details: Daily marijuana Do You Feel Safe in your Home?: Yes Lack of Transportation: No Lack of Food: Never True Current Housing: I Have Housing Concerned About Future Housing: No Difficulty Paying Gas/Electric Bills: No Difficulty Paying for Meds: No Currently Unemployed: No Education: Grade School Difficulty w/ Childcare or Family Care: No Living arrangements: with family Spiritual care concerns: No Exam Narrative: GENERAL: Well-appearing, well-nourished, and in no acute distress. HEAD: Normocephalic, atraumatic. EYES: Non injected, non icteric ENT: Nares clear, no rhinorrhea or epistaxis. NECK: Supple. CHEST: Speaking in full sentences. No respiratory distress. HEART: Regular rate and rhythm. . ABDOMEN
[2024-04-02 17:02] LABS: Basophils Percent Auto 0.5 % (0.2-1.2); Eosinophils Absolute Auto 0.1 K/mm3 (0-0.3); Eosinophils Percent Auto 1.3 % (0-4.4); Hematocrit 45.8 % (42.0-52.0); Hemoglobin 15.9 g/dL (14.0-18.0); Immature Granulocyte Absolute 0.03 K/mm3 (0.00-0.031); Immature Granulocyte Percent A 0.3 % (0-0.5); Immature Platelet Fraction Pct 11.1 % (0.9-11.2); Lymphocytes Absolute Auto 2.15 K/mm3 (0.9-3.2); Lymphocytes Percent Auto 24.4 % (18.3-44.2); Mean Corpuscular HGB Conc 34.7 g/dl (32-36); Mean Corpuscular Hemoglobin 31.9 pg (26-34); Mean Platelet Volume 11.2 fl (7.4-10.4); Monocytes Absolute Auto 0.6 K/mm3 (0.1-0.6); Monocytes Percent Auto 6.7 % (2.6-8.5); Neutrophils Absolute Auto 5.9 K/mm3 (1.3-6.7); Neutrophils Percent Auto 66.8 % (45.5-73.1); Platelet Count Result 131 k/mm3 (150-375); Red Blood Count 4.98 M/mm3 (4.6-6.20); White Blood Count 8.8 K/mm3 (4.5-10.0)
[2024-04-02 17:10] LABS: Lactic Acid Reflex 1.8 mmol/L (0.7-2.0)
[2024-04-02 17:13] LABS: Alanine Aminotransferase 57 U/L (6-50); Albumin Level 4.2 g/dL (3.5-5.1); Alkaline Phosphatase 78 U/L (38-126); Anion Gap 9 mmol/L (4-12); Aspartate Amino Transferase 60 U/L (17-59); Bilirubin,Total 1.1 mg/dL (0.2-1.3); Blood Urea Nitrogen 17 mg/dL (9-20); Calcium 8.7 mg/dL (8.4-10.2); Carbon Dioxide 22 mmol/L (22-30); Chloride 104 mmol/L (98-107); Estimated CRCL calculation 94 ml/min; Estimated Glomerular Filt Rate > 60; Glucose 129 mg/dL (65-110); Lipase 48 U/L (23-300); Magnesium 2.1 mg/dL (1.6-2.3); Potassium 3.4 mmol/L (3.4-5.0); Sodium 135 mmol/L (137-145)
[2024-04-02 17:36] LABS: Influenza A QL RT-PCR Negative (Negative); Influenza B QL RT-PCR Negative (Negative); SARS-CoV-2 RNA PCR Negative (Negative)
[2024-04-02] MEDS: HYDROmorphone HCL INJ (*CRX) 1 MG/ML SYR 0.5 MG IV PUSH (17:38)
[2024-04-02] MEDS: SODIUM CHLORIDE 0.9% IV 1,000 ML 999 ML IV CONT (17:38)
[2024-04-02 18:48] LABS: Appearance Urine Clear (Clear); Bacteria Urine None Seen /hpf; Bilirubin Urine 1+ (Negative); Blood Urine Trace (Negative); Color Urine Dark Yellow (Yellow); Glucose Urine UA Negative (Negative); Ketones Urine Negative (Negative); Leukocyte Esterase Ur Trace LEU/UL (Negative); Nitrate Urine Negative (Negative); Protein Urine 1+ mg/dL (Negative); Specific Grav Ur 1.026 (1.001-1.035); Squamous Epithelial Cell Urine None Seen /hpf (Few); WBC Urine 0-5 /hpf (0-3); pH Urine 6.5 (5.0-9.0)
[2024-04-02] MEDS: cefoTEtan DISODIUM INJ 2 GM in DEXTROSE 5% IN WATER 50 ML IVPB (18:51)
[2024-04-02 18:56] LABS: Add Urine Microscopic? YES
--- NOTE | 2024-04-02 19:00 | PM.IMHP ---
H&P: HPI History of Present Illness Date/Time: 04/02/24 19:00 Chief Complaint: acute appendicitis Narrative: The pt is a 64 y/o M presenting to ED after outpt CT was significant for acute appendicitis. Pt reports he has been feeling sick over last week or so. Pt initially thought he had food poisoning. Pt reports pain was initially diffuse but now localized to RLQ. Pt reports assoc N/V, anorexia, f/c. Pt denies any previous episodes. Review of Systems Review of Systems: All systems reviewed & are unremarkable except as noted in HPI and below PMFSH Past Medical History Medical History Aortic stenosis Arthritis Bowel trouble Cervical radiculopathy Constipation COPD (chronic obstructive pulmonary disease) Depression Difficulty breathing Difficulty sleeping Dyslipidemia Fatigue Head trauma High cholesterol History of colon polyps History of DVT (deep vein thrombosis) History of transient ischemic attack Hypertension Numbness Obstructive sleep apnea (~10/2020) Osteoarthritis Spinal stenosis Tobacco abuse Vitamin D deficiency Weakness Surgical History Surgical History H/O discectomy History of eye surgery 1963 History of knee surgery Family History Family History Father Alcohol abuse Hypertension Lung cancer Mother Hypertension Cerebrovascular accident CHF (congestive heart failure) Sibling Diabetes mellitus Anxiety Depression Hypertension Son Cancer Hypertension Social History Social History Smoking packs per day: 1 Smoking cigarettes per day: 20.0 Years smoked: 55 Smoking pack-years: 55.00 Smoking status: Current every day smoker Tobacco type: cigarettes Second hand tobacco smoke exposure: Yes Additional smoking assessment comments: Daily marijuana Alcohol intake: never Substance use: current Substance use type: marijuana Other substance usage details: Daily marijuana Do You Feel Safe in your Home?: Yes Lack of Transportation: No Lack of Food: Never True Current Housing: I Have Housing Concerned About Future Housing: No Difficulty Paying Gas/Electric Bills: No Difficulty Paying for Meds: No Currently Unemployed: No Education: Grade School Difficulty w/ Childcare or Family Care: No Living arrangements: with family Spiritual care concerns: No Meds Home Medications and Allergies Home Medications Medication Instructions Recorded Confirmed Type aspirin 81 mg tablet 81 mg PO DAILY 11/30/21 03/13/24 History ergocalciferol (vitamin D2) 1,250 1,250 mcg PO WEEKLY #12 caps 09/18/23 03/13/24 Rx mcg (50,000 unit) capsule levothyroxine 50 mcg tablet 50 mcg PO DAILY #90 tabs 12/13/23 03/13/24 Rx losartan 100 1 tablet PO DAILY #90 tabs 01/05/24 03/13/24 Rx mg-hydrochlorothiazide 25 mg tablet hydrocodone 10 mg-acetaminophen 1 tablet PO Q6H PRN pain #120 tabs 03/12/24 03/13/24 Rx 325 mg tablet atorvastatin 20 mg tablet See Rx Instructions .Route 03/13/24 03/13/24 Rx .COMPLEX #90 tabs fluticasone fur. 100 mcg-umeclid 1 inh inhalation Q24H #60 ea 03/13/24 03/13/24 Rx 62.5 mcg-vilant 25 mcg inhalat.powder (Trelegy Ellipta) terbinafine HCl 1 % topical cream 1 applic topical BID #30 grams 03/13/24 03/13/24 Rx (Athlete's Foot (terbinafine)) plecanatide 3 mg tablet 3 mg PO DAILY #90 tabs 03/26/24 Rx cephalexin 500 mg capsule 500 mg PO Q8H 5 days #15 caps 04/02/24 Rx Allergies Allergy/AdvReac Type Severity Reaction Status Date / Time codeine Allergy Unknown Unknown Verified 04/02/24 16:27 cyclobenzaprine Allergy Unknown Unknown Verified 04/02/24 16:27 methocarbamol Allergy Unknown Unknown Verified 04/02/24 16:27 gabapentin AdvReac Mild Agitated Verified 04/02/24 16:27 nalbuphine AdvReac Unknown Vomiti
--- NOTE | 2024-04-02 19:12 | WPDANESEPPF ---
Anes - Initial Pre Proc Eval Procedure: Operation Date: 04/02/24 19:00 Proposed Procedures p Laparoscopic Appendectomy - Angelita Birmingham MD Date/Time: 04/02/24 19:12 Pre Op Diagnosis: appy Patient Data Age: 64 Gender: M Height: 1.85 m Weight: 115 kg Last Vital Signs Temp 36.9 C 04/02/24 16:30 Pulse 102 H 04/02/24 16:30 Resp 16 04/02/24 16:30 BP 148/83 H 04/02/24 16:30 Pulse Ox 100 04/02/24 16:30 Allergies Allergy/AdvReac Type Severity Reaction Status Date / Time codeine Allergy Unknown Unknown Verified 04/02/24 16:27 cyclobenzaprine Allergy Unknown Unknown Verified 04/02/24 16:27 methocarbamol Allergy Unknown Unknown Verified 04/02/24 16:27 gabapentin AdvReac Mild Agitated Verified 04/02/24 16:27 nalbuphine AdvReac Unknown Vomiting Verified 04/02/24 16:27 Home Medications Medication Instructions Recorded Confirmed Type aspirin 81 mg tablet 81 mg PO DAILY 11/30/21 03/13/24 History ergocalciferol (vitamin D2) 1,250 1,250 mcg PO WEEKLY #12 caps 09/18/23 03/13/24 Rx mcg (50,000 unit) capsule levothyroxine 50 mcg tablet 50 mcg PO DAILY #90 tabs 12/13/23 03/13/24 Rx losartan 100 1 tablet PO DAILY #90 tabs 01/05/24 03/13/24 Rx mg-hydrochlorothiazide 25 mg tablet hydrocodone 10 mg-acetaminophen 1 tablet PO Q6H PRN pain #120 tabs 03/12/24 03/13/24 Rx 325 mg tablet atorvastatin 20 mg tablet See Rx Instructions .Route 03/13/24 03/13/24 Rx .COMPLEX #90 tabs fluticasone fur. 100 mcg-umeclid 1 inh inhalation Q24H #60 ea 03/13/24 03/13/24 Rx 62.5 mcg-vilant 25 mcg inhalat.powder (Trelegy Ellipta) terbinafine HCl 1 % topical cream 1 applic topical BID #30 grams 03/13/24 03/13/24 Rx (Athlete's Foot (terbinafine)) plecanatide 3 mg tablet 3 mg PO DAILY #90 tabs 03/26/24 Rx cephalexin 500 mg capsule 500 mg PO Q8H 5 days #15 caps 04/02/24 Rx Laboratory Tests 04/02/24 04/02/24 04/02/24 16:50 16:52 18:38 WBC 8.8 K/mm3 (4.5-10.0) RBC 4.98 M/mm3 (4.6-6.20) Hgb 15.9 g/dL (14.0-18.0) Hct 45.8 % (42.0-52.0) MCV 92.0 fl (80-100) MCH 31.9 pg (26-34) MCHC 34.7 g/dl (32-36) RDW 13.0 % (11.5-14.5) Plt Count 131 L k/mm3 (150-375) MPV 11.2 H fl (7.4-10.4) Immature Gran % (Auto) 0.3 % (0-0.5) Neut % (Auto) 66.8 % (45.5-73.1) Lymph % (Auto) 24.4 % (18.3-44.2) Finney % (Auto) 6.7 % (2.6-8.5) Eos % (Auto) 1.3 % (0-4.4) Baso % (Auto) 0.5 % (0.2-1.2) Lymph # (Auto) 2.15 K/mm3 (0.9-3.2) Finney # (Auto) 0.6 K/mm3 (0.1-0.6) Eos # (Auto) 0.1 K/mm3 (0-0.3) Baso # (Auto) 0.0 K/mm3 (0.0-0.1) Abs Immat Gran (auto) 0.03 K/mm3 (0.00-0.031) Absolute Neuts (auto) 5.9 K/mm3 (1.3-6.7) Absolute Nucleated RBC 0.000 K/mm3 (0.0-0.012) Nucleated RBC % 0.0 % (0.0-0.2) % Immature Plt Fraction 11.1 % (0.9-11.2) Sodium 135 L mmol/L (137-145) Potassium 3.4 mmol/L (3.4-5.0) Chloride 104 mmol/L (98-107) Carbon Dioxide 22 mmol/L (22-30) Anion Gap 9 mmol/L (4-12) BUN 17 mg/dL (9-20) Creatinine 0.90 mg/dL (0.7-1.3) Estim Creat Clear Calc 94 ml/min Estimated GFR > 60 (59 - ) Glucose 129 H mg/dL (65-110) Lactic Acid 1.8 mmol/L (0.7-2.0) Calcium 8.7 mg/dL (8.4-10.2) Magnesium 2.1 mg/dL Cancelled (1.6-2.3) Total Bilirubin 1.1 mg/dL (0.2-1.3) AST 60 H U/L (17-59) ALT 57 H U/L (6-50) Alkaline Phosphatase 78 U/L (38-126) Total Protein 7.0 g/dL (6.3-8.2) Albumin 4.2 g/dL (3.5-5.1) Lipase 48 U/L (23-300) Urine Color Dark yellow (Yellow) Urine Appearance Clear (Clear) Urine p
[2024-04-02] MEDS: BUPIVACAINE/EPINEPHRINE 0.5% 10 ML VIAL 30 ML INFILTRATE (19:38)
--- NOTE | 2024-04-02 19:47 | P.OP_ITS ---
Procedure Note - Detailed Date of Procedure 04/02/24 Pre-op Diagnosis acute appendicitis Post-op Diagnosis Same Procedure Performed laparoscopic appendectomy Surgeon Angelita Birmingham MD Anesthesia General Indications 64 y/o M presenting to ED c acute appendicitis Findings acute appendicitis no evidence of perforation Description of Procedure The patient was taken to the operating room and placed in the supine position. After adequate induction of general anesthesia, the patient was prepped and draped in the normal sterile fashion. A time-out was then done to verify the patient's identity, as well as the procedure being performed. I began by making a 5 mm incision in the infraumbilical region, through this a Veress needle was placed in the peritoneal cavity. CO2 gas was then insufflated and after vickie quate pneumoperitoneum was achieved the Veress needle was removed. Then placed a 5 mm Optiview trocar under direct visualization into the peritoneal cavity. I then insufflated through this trocar site and the endoscope was placed into the trocar. Under direct visualization, I placed a further 5 mm suprapubic port as well as an additional 12 mm port in the left lower abdomen. At this point iden tified the cecum, I retracted the cecum both laterally and superiorly allowing me to expose the appendix. The appendix was noted to be dilated and inflamed. The appendix was noted to be very adherent to the ileum. I was able to bluntly dissect the appendix from these adhesions. I then was able to locate the base of the appendix with the cecum. I created a window with the [place] dissector between the appendix itself and the mesoappendix. I then transected the mesoappendix with a white vascular staple load. The Endo-ARON was then reloaded with a blue staple load and I transected the base of the appendix. Once the specimen was completely detached, an endo-pouch was placed into the 12 mm port site and the specimen was removed through the endo-pouch. The appendiceal specimen will be sent to pathology for further review. I then copiously irrigated the right lower quadrant. Hemostasis was noted at both staple lines no other pathology was seen in this area. I then moved the camera to the suprapubic port to check our its port of entry. No iatrogenic injury or other pathology was noted in the upper abdomen. I then closed the 12 mm port site with a Jeff code and 0 Vicryl suture under direct visualization. At this point, the abdomen was desufflated and all ports were removed. All port sites were closed with 4 Monocryl subcuticular suture. Dermabond was placed on all wo unds. The patient tolerated the procedure well and was extubated in the operating room postop. He will be sent to the recovery room in stable condition. Estimated Blood Loss 10 Drains No Packing No Pathology Yes Complications No immediate complications Condition Stable Disposition PACU [facility] Billing Surgery - Charge Forward: Surgery Billing
[2024-04-02 19:48] VITALS: BP 142/82; PULSE 84; RESP 14; TEMP 36.2; O2SAT 100
[2024-04-02] MEDS: LACTATED RINGERS 1,000 ML 30 ML IV CONT (19:48)
[2024-04-02 20:03] VITALS: BP 134/87; PULSE 81; RESP 16; O2SAT 100
[2024-04-02 20:15] VITALS: BP 127/86; PULSE 81; RESP 16; O2SAT 98
[2024-04-02] MEDS: fentaNYL CITRATE INJ (*CRX) 100 MCG/2 ML VIAL 25 MCG IV PUSH ×3 (20:17→20:39)
[2024-04-02 20:30] VITALS: BP 126/72; PULSE 79; RESP 17; O2SAT 98
[2024-04-02 20:38] VITALS: BP 127/70; PULSE 80; RESP 15; O2SAT 98
== END 2024-04-02 19:50 ==
LOC: ANHED 20:20 → ANHSURGERY 04-03 10:40
PROVIDERS: Family Medicine; Emergency Provider Student in an Organized Health Care Education/Training Program; PCP Nurse Practitioner Family; Visit Provider Surgery
PROC: 0DTJ4ZZ Resection of Appendix, Percutaneous Endoscopic Approach (ICD-10-PCS; CPT 44970; principal; 2024-04-02 19:00)
DX: K35.80 Unspecified acute appendicitis (principal); I10 Essential (primary) hypertension; E78.00 Pure hypercholesterolemia, unspecified; J44.9 Chronic obstructive pulmonary disease, unspecified; G47.33 Obstructive sleep apnea (adult) (pediatric); E55.9 Vitamin D deficiency, unspecified; F32.A Depression, unspecified; Z86.73 Personal history of transient ischemic attack (TIA), and cerebral infarction without residual deficits; Z86.718 Personal history of other venous thrombosis and embolism; Z79.82 Long term (current) use of aspirin; F17.210 Nicotine dependence, cigarettes, uncomplicated; F12.90 Cannabis use, unspecified, uncomplicated; Z20.822 Contact with and (suspected) exposure to COVID-19
CPT/HCPCS: 44970; 36415; 80053; 81001; 83605; 83690; 83735; 85025; 85055; 87636; 88304; 96361; 96374; 96375; 99285; J1170; J2250; J2270; J3010; J7030; J7120

== ENCOUNTER 2024-06-06 12:54 | Outpatient (CLI) | payer OTHER, SELFPAY ==
--- NOTE | ~2024-06-06 | XR_ITS ---
XR hip RT min 2V 06/06/2024 13:17 INDICATION: Right hip pain and radiculopathy PROCEDURE: 2 views right hip COMPARISON: No prior studies for comparison. FINDINGS: Fracture, dislocation or subluxation is not identified. Mild osteoarthritis of the right hi p. The soft tissues appear within normal limits. No foreign bodies are identified. IMPRESSION: 1: Mild osteoarthritis of the right hip. Reviewed, dictated and finalized at location B.
--- NOTE | ~2024-06-06 | XR_ITS ---
3 VIEWS LUMBAR SPINE Ordering provider: Brittany Blood, MANAGER SPEECH History: . RADICULOPATHY . Comparison: August 17, 2023 FINDINGS: VERTEBRAL BODIES:Transitional vertebra is seen. No visible fracture or subluxation. Degenerative vincenzo nges of the spine. DISK SPACES: Narrowing of the disc L3-L4, L4-L5 and L5-S1. Multilevel facet joint disease. SOFT TISSUES: Vascular calcifications. IMPRESSION: No acute osseous abnormality lumbar spine. Multilevel degenerative disc disease. Seen No change from previous examination Reviewed, dictated and finalized at location A.
== END 2024-06-06 12:55 | disposition home or self-care (01) ==
LOC: ANHIMG 13:00
PROVIDERS: PCP Family Medicine; Visit Provider Nurse Practitioner Adult Health
DX: M51.36 Other intervertebral disc degeneration, lumbar region (principal); M16.11 Unilateral primary osteoarthritis, right hip
CPT/HCPCS: 72110; 73502

== ENCOUNTER 2024-08-22 10:05 | Outpatient (RCR) | payer OTHER, SELFPAY ==
--- NOTE | 2024-08-06 12:19 | PCPTNOTE ---
Patient cancelled today's Physical Therapy evaluation. Intake reports that no reason was given other than he did not want to come in.
--- NOTE | 2024-08-22 11:00 | OPREHPOC ---
Outpatient Therapy Plan of Care This is a Multidisciplinary Plan of Care that may contain components documented by all disciplines (PT, OT, and ST.) PT Problem 1 PT Problem #1 Knowledge Deficit PT Goal 1 Goal / Goal Update *indep with HEP Target Visit 8 PT Problem 2 PT Problem #2 Pain PT Goal 1 Goal / Goal Update 1* pain rating at worst of 7/10 2* Oswestry self rating of 48% limitation in activity 3* pt report with sleeping, awaken 1x/night due to pain Target Visit 8 PT Problem 3 PT Problem #3 Impaired Strength PT Goal 1 Goal / Goal Update increase trunk and hip strength to improve support to spine: 1* pt perform 20 reps of mat and standing exercises 2* pt walking tolerance of 300' before stopping due to pain Target Visit 8
--- NOTE | 2024-08-22 11:01 | PTOPEVAL1 ---
Assessment and note entered by Emilee Edmond, PT Evaluation Information Assessment Status Evaluation ICD-10 Condition Codes (PT) M54.16,Weakness R53.1 Onset April 2024 Subjective Information chronic issues with back pain, have had 2 back surgeries/laminectomies; foot drop L from back; to have nodule removed from neck next week--non cancerous in neck, by [employer] project manager; had PT in the past, about 1 year ago- did not help his back x ray: lumbar: multilevel DDD, facet joint disease L 3-4-5-S1; R hip mild OA; Activity level: walking limited, cannot do what want to do; disabled; Reported Pain Level Pain Score Self Report Additional Pain Score Comments pain range in the past week -07/09; R hip posterior pain, constant into L knee to foot; increase pain: reported walking 200'; doing dishes vacuum decrease pain: take hydrocodone, heat pad, sit down with sleeping, awaken from back pain 2x/night Assessment PT Clinical Summary Stanislaw has the diagnosis of lumbar radiculopathy. Reports constant pain into L LE to foot and R posterior hip pain. The PT order is dated 05-30-24. His medical history includes 2 lumbar surgeries with L foot drop. He reports that PT in the past did not help his back pain. Self assessment Oswestry rating of 56% limitation in activity level. Walking, sleeping and activity level are decreased due to pain. With the evaluation: pain is increased with standing flexion > extension motions; supine R hip flexion, L hip flexion & IR motions; he has weakness over trunk and hips with decreased stability to spine; stands with flat lumbar spine. Discussed aquatic therapy with pt and he is not interested in water exercises. Skilled PT services are indicated for modalities to decrease pain; therapeutic exercises to increase trunk and hip flexibility and strength with education for HEP and back position, pain management. Plan of Care Interventions Electrical Stimulation,Hot Pack/Cold Pack, Mechanical Traction,Neuro Re-education,Patient/ Education,Therapeutic Activities, Therapeutic Exercise,Ultrasound,Other Other Interventions taping PT Services Indicated Yes Treatment Frequency and 2x/wk for 8 visits Duration These treatments will address the objective and functional deficits as defined above. The patient will be advanced safely and appropriately in order for the patient to progress towards his/her prior level of function. Additional exercises will be introduced and as well as a comprehensive home exercise program upon discharge, if needed, ?to ensure carryover of functional gains achieved in the clinic. This treatment plan has been reviewed and agreement upon by the patient.
--- NOTE | 2024-08-26 09:19 | PCPTNOTE ---
Called and cancelled this date reporting he is having surgery on Monday on his neck.
--- NOTE | 2024-10-04 10:49 | PCPTNOTE ---
Pt. called and cancelled his appointment this date due to transportation issues
--- NOTE | 2024-10-24 11:40 | PTOPDC ---
Assessment and note entered by Emilee Edmond, PT Assessment Status Discharge - Pt Not Present ICD-10 Condition Codes (PT) Radiculopathy, lumbar region M54.16,Weakness R53.1 Onset April 2024 Subjective Information pt was not seen this date. Assessment PT Clinical Summary Stanislaw received the PT evaluation on August 22. He then called and canceled appointments- one on August 26 and one on October 04. Discharge PT due to not attending since initial evaluation. The goals were not addressed. Plan of Care PT Services Indicated No
== END 2024-10-24 17:17 | disposition home or self-care (01) ==
LOC: ANHPT 10:05
PROVIDERS: PCP Family Medicine; Visit Provider Nurse Practitioner Adult Health
DX: M54.16 Radiculopathy, lumbar region (principal); R53.1 Weakness
CPT/HCPCS: 97110; 97161; 97530

== ENCOUNTER 2024-09-24 09:31 | Outpatient (CLI) | payer OTHER, SELFPAY ==
--- NOTE | 2024-09-24 10:10 | NEURO_ITS ---
Impression: # Complains of spasms in lower extremities. History of lower back surgery. # Bilateral motor/sensory axonal neuropathy. # Superimposed left L5/S1 changes secondary to back surgeries. # Clinical correlation recommended. Nerve Conduction Studies Anti Sensory Summary Table Stim Site NR Peak (ms) P-T Amp (?V) Site1 Site2 Delta-P (ms) Dist (cm) [place] (m/s) Left Sup Fibular Anti Sensory (Ant Lat Mall) NO RESPONSE 14 cm NR 14 cm Ant Lat Mall 16.0 Right Sup Fibular Anti Sensory (Ant Lat Mall) 14 cm 3.6 11.4 14 cm Ant Lat Mall 3.6 16.0 44 Left Sural Anti Sensory (Lat Mall) NO RESPONSE Calf NR Calf Lat Mall 16.0 Right Sural Anti Sensory (Lat Mall) NO RESPONSE Calf NR Calf Lat Mall 16.0 Motor Summary Table Stim Site NR Onset (ms) O-P Amp (mV) Site1 Site2 Delta-0 (ms) Dist (cm) [place] (m/s) Left Peroneal Motor (Vastus Med) NO RESPONSE Ankle NR Popit Ankle 0.0 Popit NR Right Peroneal Motor (Vastus Med) Ankle 3.4 2.0 Popit Ankle 10.3 44.0 43 Popit 13.7 2.7 Left Tibial Motor (Abd Bethea Brev) Ankle 4.3 2.4 Knee Ankle 10.4 45.0 43 Knee 14.7 1.5 Right Tibial Motor (Abd Bethea Brev) Ankle 3.7 5.6 Knee Ankle 10.7 44.0 41 Knee 14.4 2.8 F Wave Studies NR F-Lat (ms) L-R F-Lat (ms) Left Peroneal (Mrkrs) (EDB) NO RESPONSE NR Right Peroneal (Mrkrs) (EDB) 57.86 Left Tibial (Mrkrs) (Abd Hallucis) 59.28 0.43 Right Tibial (Mrkrs) (Abd Hallucis) 58.85 0.43 EMG Side Muscle Nerve Root Ins Act Fibs Amp Dur Recrt Comment Right AntTibialis Dp Br Fibular L4-5 Nml Nml Nml Nml Nml Right Gastroc Tibial S1-2 Nml Nml Nml Nml Nml Right Fibularis Long Sup Br Fibular L5-S1 Nml Nml Nml Nml Nml Right Flex Dig Long Tibial L5-S2 Nml Nml Nml Nml Nml Right Ext Dig Brev Dp Br Fibular L5, S1 Nml Nml Nml Nml Nml Right QuadratusFem QuadFemoris L4-5, S1 Nml Nml Nml Nml Nml Left AntTibialis Dp Br Fibular L4-5 Nml Nml Decr >12ms +2 Left Gastroc Tibial S1-2 Nml Nml Decr >12ms +2 Left Fibularis Long Sup Br Fibular L5-S1 Nml Nml Decr >12ms +2 Left Flex Dig Long Tibial L5-S2 Nml Nml Nml Nml Nml Left Ext Dig Brev Dp Br Fibular L5, S1 Nml Nml Decr >12ms +3 Left QuadratusFem QuadFemoris L4-5, S1 Nml Nml Decr >12ms +1 MTDD
== END 2024-09-24 09:32 | disposition home or self-care (01) ==
LOC: ANHNEURO 09:33
PROVIDERS: PCP Family Medicine; Visit Provider Nurse Practitioner Adult Health
DX: M54.16 Radiculopathy, lumbar region (principal); G62.9 Polyneuropathy, unspecified
CPT/HCPCS: 95886; 95910

== ENCOUNTER 2024-11-06 17:13 | Observation (INO) | payer OTHER, SELFPAY ==
--- NOTE | ~2024-11-06 | XR_ITS ---
CHEST RADIOGRAPH, PA AND LATERAL CLINICAL HISTORY: chest pain . COMPARISON: 12/17/2023 TECHNIQUE: PA and lateral views of the chest. FINDINGS The cardiomediastinal silhouette is unremarkable. The lungs are clear. Visualized osseous structures and soft tissues are unremarkable. IMPRESSION: No focal infiltrate or effusion. Reviewed, dictated and finalized at location A. OM[facility] TRAINING SPECIALIST
--- NOTE | ~2024-11-06 | CT_ITS ---
EXAMINATION: CTA chest PE protocol DATE: 11/06/2024 18:50 GUM PULLER INDICATION: Chest pain and shortness of breath. TECHNIQUE: Computed tomographic angiography (CTA) of the chest was performed with 100 mL Omnipaque-35 0 intravenous contrast. The dose-length product was 1046.75 mGy-cm. Maximum intensity projection 3D-r econstructions of the aorta and other arteries were constructed by the technologist on a separate wor kstation. COMPARISON: None. FINDINGS: No filling defects within the main or proximal pulmonary arteries. The thoracic aorta is unremarkable without aneurysmal dilatation or dissection. A 14.8 mm soft tissue attenuation focus is identified within the right hilum, possibly an enlarged hi lar lymph node for which follow-up is recommended (axial series, image 162). This area is increased in size from previous lung CT dated 10/19/2021 when it measured 10.4 mm (axial series image 78). The remainder of the lungs are clear. Redemonstration of the focus of decreased attenuation within the T2 vertebral body, unchanged from . The remainder of the visualized osseous structures are unremarkable. Within the upper abdomen: Retained gastric contents within the stomach and decompression of the gallb ladder, consistent with recent oral intake. Remainder of the upper abdomen is unremarkable. IMPRESSION: No pulmonary embolus. No aortic dissection. Increase in size of a focus of soft tissue attenuation adjacent to the right hilum when compared with previous examination dated 10/19/2021 for which follow-up as per Fleischner guidelines is recommende d (tissue sampling, follow-up in 3 months, or PET/CT). Reviewed, dictated and finalized at location A. PULLER IMPRESSION: No pulmonary embolus. No aortic dissection. Increase in size of a focus of soft tissue attenuation adjacent to the right hi lum when compared with previous examination dated 10/19/2021 for which follow-u p as per Fleischner guidelines is recommended (tissue sampling, follow-up in 3 months, or PET/CT).
--- NOTE | 2024-11-06 17:16 | ECG_ITS ---
Test Date: 2024-11-06 17:22:31 Measurements Intervals [place] Rate: 92 P: 50 IN: 197 QRS: 43 QRSD: 91 T: 77 QT: 280 QTc: 346 Interpretive Statements SINUS RHYTHM POSSIBLE LEFT ATRIAL ENLARGEMENT [-0.1mV P-WAVE IN V1/V2] NONSPECIFIC ST & T-WAVE ABNORMALITY No previous ECG available for comparison Electronically Signed On 11-08-2024 16:21:28 [employer] MACHINE OPERATOR by Ismael Do M.D.
[2024-11-06 17:19] VITALS: BP 175/94; PULSE 95; RESP 17; TEMP 36.7; O2SAT 99
--- NOTE | 2024-11-06 17:30 | ED_ITS ---
HPI - Chest Pain General Chief Complaint: Chest Pain <GT Mcleod Last Filed: 11/06/24 17:44> Stated Complaint: chest pain <GT Mcleod Last Filed: 11/06/24 17:44> Time Seen by Provider: 11/06/24 17:30 <GT Mcleod Last Filed: 11/06/24 17:44> Focused HPI: Patient is a 64 y/o male who presents to the ED with c/o CP and SOB. Patient reports he was diagnosed with possible lung CA a few months ago, was told there were multiple nodules seen on a chest CT scan at an outside hospital. He was referred to [facility] [place], but was told he needed more proof of him having cancer. Last night he had some burning in his chest. Persisted into today, now having midsternal pressure/heaviness, shortness of breath. He has chronic cough, occasionally productive of white phlegm. Denies BLE pain or swelling. Denies fevers, weight loss, night sweats. Denies previous hx of CAD. Is still smoking 0.5ppd, down from 1 ppd. GENERAL: Well-appearing, obese with BMI of 36.4, and in no acute distress. HEAD: Normocephalic, atraumatic. CHEST: Clear to auscultation. ?No respiratory distress. No significant focal lung sounds. HEART: Regular rate and rhythm.? NEURO: ?Alert and oriented x3. Patient screened in triage and initial orders placed.? ?Additional care and disposition to be based upon?diagnostic testing and treatment. <GT Mcleod Last Filed: 11/06/24 17:44> Source: patient <GT Mcleod Last Filed: 11/06/24 17:44> Mode of arrival: ambulatory <GT Mcleod Last Filed: 11/06/24 17:44> Limitations: no limitations <GT Mcleod Last Filed: 11/06/24 17:44> History of Present Illness HPI narrative: Patient is 64-year-old gentleman presents emergency department with chief complaint of chest pain and shortness of breath. Patient reports that he was told that he had possible cancer several months ago and reports he was referred to site [facility] but has not been able to get any kind tissue diagnosis or reports that he has had no other further testing. The patient does report that he smokes cigarettes reports no prior history of cardiac disease <Hoang Cavazos MD - Last Filed: 11/06/24 22:09> Related Data Home Medications: Home Medications ?Medication ?Instructions ?Recorded ?Confirmed ?Last Taken ?Type aspirin 81 mg tablet 81 mg PO DAILY 11/30/21 04/24/24 12/17/23 09:00 History <Mirta Huizar PA-C - Last Filed: 11/06/24 17:44> Allergies/Adverse Reactions: Allergies Allergy/AdvReac Type Severity Reaction Status Date / Time codeine Allergy Unknown Unknown Verified 11/06/24 17:14 cyclobenzaprine Allergy Unknown Unknown Verified 11/06/24 17:14 methocarbamol Allergy Unknown Unknown Verified 11/06/24 17:14 gabapentin AdvReac Mild Agitated Verified 11/06/24 17:14 nalbuphine AdvReac Unknown Vomiting Verified 11/06/24 17:14 <Mirta Huizar PA-C - Last Filed: 11/06/24 17:44> Review of Systems 2 Review of Systems: A 10 system review of systems was completed on the patient and is negative except for what is stated in the HPI. Nursing and ancillary documentation was reviewed. <Hoang Cavazos MD - Last Filed: 11/06/24 22:09> [facility] Past Medical History Medical History: Medical History Chronic prescription opiate use Chronic back pain Chronic neck pain Thyroid dysfunction Aortic stenosis Cervical radiculopathy Dyslipidemia Vitamin D deficiency History of colon polyps History of DVT (deep vein thrombosis) Bowel trouble Weakness Difficulty breathing Difficulty sleeping Head trauma Fatigue Numbness Arthritis Constipation Obstructive sleep apnea (~10/2020) Spinal stenosis History of transient ischemic attack Tobacco abuse Osteoarthritis Depression COPD (chronic obstructive pulmonary disease) High cholesterol Hypertension <Mirta Huizar PA-C - Last Filed: 11/06/24 17:44> Surgical History Surgical History: Surgical History History of laparoscopic appendectomy 04/02/24 History of eye surgery 1963 History of knee surgery H/O discectomy x2 <GT Mcleod Last Filed: 11/06/24 17:44> Family History Family History: Family History Father Alcohol abuse Hypertension Lung cancer Mother Hypertension Cerebrovascular accident CHF (congestive heart failure) Sibling Diabetes mellitus Anxiety Depression Hypertension Son Cancer Hypertension <GT Mcleod Last Filed: 11/06/24 17:44> Social History Social History: Social History Smoking packs per day: 1 Smoking cigarettes per day: 20.0 Years smoked: 55 Smoking pack-years: 55.00 Smoking status: Current every day smoker Tobacco type: cigarettes Second hand tobacco smoke exposure: Yes Additional smoking assessment comments: Daily marijuana Alcohol intake: never Substance use: current Substance use type: marijuana Other substance usage details: Daily marijuana Do You Feel Safe in your Home?: Yes Lack of Transportation: No Lack of Food: Never True Current Housing: I Have Housing Concerned About Future Housing: No Difficulty Paying Gas/Electric Bills: No Difficulty Paying for Meds: No Currently Unemployed: No Education: Grade School Difficulty w/ Childcare or Family Care: No Living arrangements: with family Spiritual care concerns: No <Mirta Huizar PA-C - Last Filed: 11/06/24 17:44> Exam 2 Narrative: GENERAL: Well-appearing, well-nourished, and in no acute distress. HEAD: Normocephalic, atraumatic. EYES: PERRLA and EOMI. ENT: Nares clear, no rhinorrhea or epistaxis. Mucous membranes moist. NECK: Supple. CHEST: Clear to auscultation. No respiratory distress. HEART: Regular rate and rhythm. No murmur heard. Normal peripheral pulses. ABDOMEN: Soft, nontender, nondistended, normal active bowel sounds. EXTREMITIES: Normal range of motion. No edema. SKIN: Warm, dry, no rash. NEURO: No focal deficits. Alert and oriented x3. PSYCH: Normal mood and affect. <Hoang Cavazos MD - Last Filed: 11/06/24 22:09> Course Vital Signs Vital signs: Vital Signs Temperature 36.7 C 11/06/24 17:19 Pulse Rate 95 11/06/24 17:19 Respiratory Rate 17 11/06/24 17:19 Blood Pressure 175/94 H 11/06/24 17:19 Pulse Oximetry 99 11/06/24 17:19 Temperature 36.7 C 11/06/24 17:19 Pulse Rate 97 11/06/24 21:19 Respiratory Rate 26 H 11/06/24 21:19 Blood Pressure 176/80 H 11/06/24 21:19 Pulse Oximetry 98 11/06/24 21:19 Oxygen Delivery Room Air 11/06/24 21:17 <Mirta Huizar PA-C - Last Filed: 11/06/24 17:44> Vital Signs Temperature 36.7 C 11/06/24 17:19 Pulse Rate 95 11/06/24 17:19 Respiratory Rate 17 11/06/24 17:19 Blood Pressure 175/94 H 11/06/24 17:19 Pulse Oximetry 99 11/06/24 17:19 Temperature 36.7 C 11/06/24 17:19 Pulse Rate 97 11/06/24 21:19 Respiratory Rate 26 H 11/06/24 21:19 Blood Pressure 176/80 H 11/06/24 21:19 Pulse Oximetry 98 11/06/24 21:19 Oxygen Delivery Room Air 11/06/24 21:17 <Hoang Cavazos MD - Last Filed: 11/06/24 22:09> MDM - Chest Pain MDM Narrative Medical decision making narrative: MSE by REGINO in triage. <Mirta Huizar PA-C - Last Filed: 11/06/24 17:44> MSE by REGINO in triage. Differential diagnosis includes ACS, pneumothorax, pulmonary mass, pulse pulmonary embolism, pneumonia, CT the chest showed No pulmonary embolus. No aortic dissection. Increase in size of a focus of soft tissue attenuation adjacent to the right hilum when compared with previous examination dated 10/19/2021 for which follow- up as per Fleischner guidelines is recommended (tissue sampling, follow-up in 3 months, or PET/CT). Troponins were 0 hour and 3 hour In discussion with the patient the patient has had difficulty with follow-up and has had an extended period of time since the discovering of the hilar soft tissue mass given this the case was discussed with hospitalist for admission to potentially expedite the patient's evaluation <Hoang Cavazos MD - Last Filed: 11/06/24 22:09> Lab Data Result diagrams: 11/06/24 17:29 11/06/24 17:29 <Mirta Huizar PA-C - Last Filed: 11/06/24 17:44> Labs: Lab Results 11/06/24 11/06/24 Range/Units 17:29 20:16 WBC 13.2 H (4.5-10.0) K/mm3 RBC 5.10 (4.6-6.20) M/mm3 Hgb 16.0 (14.0-18.0) g/dL Hct 47.7 (42.0-52.0) % MCV 93.5 (80-100) fl MCH 31.4 (26-34) pg MCHC 33.5 (32-36) g/dl RDW 13.2 (11.5-14.5) % Plt Count 247 D (150-375) k/mm3 MPV 11.2 H (7.4-10.4) fl Immature Gran % (Auto) 0.3 (0-0.5) % Neut % (Auto) 60.7 (45.5-73.1) % Lymph % (Auto) 31.6 (18.3-44.2) % [place] % (Auto) 5.1 (2.6-8.5) % Eos % (Auto) 1.8 (0-4.4) % Baso % (Auto) 0.5 (0.2-1.2) % Lymph # (Auto) 4.18 H (0.9-3.2) K/mm3 [place] # (Auto) 0.7 H (0.1-0.6) K/mm3 Eos # (Auto) 0.2 (0-0.3) K/mm3 Baso # (Auto) 0.1 (0.0-0.1) K/mm3 Abs Immat Gran (auto) 0.04 H (0.00-0.031) K/mm3 Absolute Neuts (auto) 8.0 H (1.3-6.7) K/mm3 Absolute Nucleated RBC 0.000 (0.0-0.012) K/mm3 Nucleated RBC % 0.0 (0.0-0.2) % PT 12.9 (11.1-14.7) Seconds INR 1.0 APTT 30.3 (22.3-36.8) Seconds Sodium 135 L (137-145) mmol/L Potassium 4.0 (3.4-5.0) mmol/L Chloride 104 (98-107) mmol/L Carbon Dioxide 25 (22-30) mmol/L Anion Gap 6 (4-12) mmol/L BUN 14 (9-20) mg/dL Creatinine 0.71 (0.7-1.3) mg/dL Estim Creat Clear Calc 122 ml/min Estimated GFR > 60 (59 - ) Glucose 153 H (65-110) mg/dL Calcium 8.9 (8.4-10.2) mg/dL Total Bilirubin 0.8 (0.2-1.3) mg/dL AST 32 (17-59) U/L ALT 32 (6-50) U/L Alkaline Phosphatase 85 (38-126) U/L Troponin I < 0.012 < 0.012 (0.000-0.034) ng/mL NT-Pro-B Natriuret Pep 29 (19.9-100) pg/mL Total Protein 7.0 (6.3-8.2) g/dL Albumin 4.3 (3.5-5.1) g/dL Lipase 45 (23-300) U/L <Mirta Huizar PA-C - Last Filed: 11/06/24 17:44> Lab Results 11/06/24 11/06/24 Range/Units 17:29 20:16 WBC 13.2 H (4.5-10.0) K/mm3 RBC 5.10 (4.6-6.20) M/mm3 Hgb 16.0 (14.0-18.0) g/dL Hct 47.7 (42.0-52.0) % MCV 93.5 (80-100) fl MCH 31.4 (26-34) pg MCHC 33.5 (32-36) g/dl RDW 13.2 (11.5-14.5) % Plt Count 247 D (150-375) k/mm3 MPV 11.2 H (7.4-10.4) fl Immature Gran % (Auto) 0.3 (0-0.5) % Neut % (Auto) 60.7 (45.5-73.1) % Lymph % (Auto) 31.6 (18.3-44.2) % [place] % (Auto) 5.1 (2.6-8.5) % Eos % (Auto) 1.8 (0-4.4) % Baso % (Auto) 0.5 (0.2-1.2) % Lymph # (Auto) 4.18 H (0.9-3.2) K/mm3 [place] # (Auto) 0.7 H (0.1-0.6) K/mm3 Eos # (Auto) 0.2 (0-0.3) K/mm3 Baso # (Auto) 0.1 (0.0-0.1) K/mm3 Abs Immat Gran (auto) 0.04 H (0.00-0.031) K/mm3 Absolute Neuts (auto) 8.0 H (1.3-6.7) K/mm3 Absolute Nucleated RBC 0.000 (0.0-0.012) K/mm3 Nucleated RBC % 0.0 (0.0-0.2) % PT 12.9 (11.1-14.7) Seconds INR 1.0 APTT 30.3 (22.3-36.8) Seconds Sodium 135 L (137-145) mmol/L Potassium 4.0 (3.4-5.0) mmol/L Chloride 104 (98-107) mmol/L Carbon Dioxide 25 (22-30) mmol/L Anion Gap 6 (4-12) mmol/L BUN 14 (9-20) mg/dL Creatinine 0.71 (0.7-1.3) mg/dL Estim Creat Clear Calc 122 ml/min Estimated GFR > 60 (59 - ) Glucose 153 H (65-110) mg/dL Calcium 8.9 (8.4-10.2) mg/dL Total Bilirubin 0.8 (0.2-1.3) mg/dL AST 32 (17-59) U/L ALT 32 (6-50) U/L Alkaline Phosphatase 85 (38-126) U/L Troponin I < 0.012 < 0.012 (0.000-0.034) ng/mL NT-Pro-B Natriuret Pep 29 (19.9-100) pg/mL Total Protein 7.0 (6.3-8.2) g/dL Albumin 4.3 (3.5-5.1) g/dL Lipase 45 (23-300) U/L <Hoang Cavazos MD - Last Filed: 11/06/24 22:09> Discharge Plan Discharge Clinical Impression: Hilar mass Chest pain Qualifiers: Chest pain type: other chest pain Qualified Code(s): R07.89 - Other chest pain <Mirta Huizar PA-C - Last Filed: 11/06/24 17:44> Patient Disposition: Still a Patient <Mirta Huizar PA-C - Last Filed: 11/06/24 17:44> Condition: Stable <Mirta Huizar PA-C - Last Filed: 11/06/24 17:44> Patient Language: Frisian <Mirta Huizar PA-C - Last Filed: 11/06/24 17:44> Prescriptions: No Action losartan-hydrochlorothiazide 100-25 mg tablet 1 tablet PO DAILY Qty: 90 2RF Trelegy Ellipta 100-62.5-25 mcg blister with device 1 inh inhalation Q24H Qty: 60 2RF atorvastatin 20 mg tablet See Rx Instructions .ROUTE .COMPLEX Qty: 90 2RF Dose Instruction: TAKE 1 TABLET BY MOUTH EVERY DAY AT BEDTIME Rx Instructions: TAKE 1 TABLET BY MOUTH EVERY DAY AT BEDTIME terbinafine HCl [Athlete's Foot (terbinafine)] 1 % cream 1 applic topical BID Qty: 30 1RF Rx Instructions: use twice daily use for 1 week after symptoms have cleared aspirin 81 mg Tablet 81 mg PO DAILY ergocalciferol (vitamin D2) 1,250 mcg (50,000 unit) capsule 1,250 mcg PO WEEKLY Qty: 12 1RF levothyroxine 50 mcg tablet 50 mcg PO DAILY Qty: 90 1RF plecanatide 3 mg tablet 3 mg PO DAILY Qty: 90 1RF <Mirta Huizar PA-C - Last Filed: 11/06/24 17:44> Follow-up/Referrals: Filippo,Valencia Hanson MD [Primary Care Provider] - <Mirta Huizar PA-C - Last Filed: 11/06/24 17:44> Time of Disposition: 22:09 <Mirta Huizar PA-C - Last Filed: 11/06/24 17:44> 22:09 <Hoang Cavazos MD - Last Filed: 11/06/24 22:09>
[2024-11-06 17:42] LABS: Basophils Absolute Auto 0.1 K/mm3 (0.0-0.1); Basophils Percent Auto 0.5 % (0.2-1.2); Eosinophils Absolute Auto 0.2 K/mm3 (0-0.3); Eosinophils Percent Auto 1.8 % (0-4.4); Hematocrit 47.7 % (42.0-52.0); Immature Granulocyte Absolute 0.04 K/mm3 (0.00-0.031); Immature Granulocyte Percent A 0.3 % (0-0.5); Lymphocytes Absolute Auto 4.18 K/mm3 (0.9-3.2); Lymphocytes Percent Auto 31.6 % (18.3-44.2); Mean Corpuscular HGB Conc 33.5 g/dl (32-36); Mean Corpuscular Hemoglobin 31.4 pg (26-34); Mean Corpuscular Volume 93.5 fl (80-100); Mean Platelet Volume 11.2 fl (7.4-10.4); Monocytes Absolute Auto 0.7 K/mm3 (0.1-0.6); Monocytes Percent Auto 5.1 % (2.6-8.5); Neutrophils Percent Auto 60.7 % (45.5-73.1); Platelet Count Result 247 k/mm3 (150-375); Red Cell Distribution Width 13.2 % (11.5-14.5); White Blood Count 13.2 K/mm3 (4.5-10.0)
[2024-11-06 17:54] LABS: Alanine Aminotransferase 32 U/L (6-50); Albumin Level 4.3 g/dL (3.5-5.1); Alkaline Phosphatase 85 U/L (38-126); Anion Gap 6 mmol/L (4-12); Aspartate Amino Transferase 32 U/L (17-59); Bilirubin,Total 0.8 mg/dL (0.2-1.3); Blood Urea Nitrogen 14 mg/dL (9-20); Calcium 8.9 mg/dL (8.4-10.2); Carbon Dioxide 25 mmol/L (22-30); Chloride 104 mmol/L (98-107); Estimated CRCL calculation 122 ml/min; Estimated Glomerular Filt Rate > 60; Glucose 153 mg/dL (65-110); Lipase 45 U/L (23-300); Sodium 135 mmol/L (137-145)
[2024-11-06 18:04] LABS: Troponin I < 0.012 ng/mL (0.000-0.034)
[2024-11-06 18:12] LABS: Prothrombin Time 12.9 Seconds (11.1-14.7)
[2024-11-06 18:13] LABS: Partial Thromboplastin Time 30.3 Seconds (22.3-36.8)
[2024-11-06 18:22] LABS: NT Pro B Type Natriuretic Pept 29 pg/mL (19.9-100)
--- NOTE | 2024-11-06 20:08 | ECG_ITS ---
Test Date: 2024-11-06 20:18:58 Measurements Intervals [place] Rate: 89 P: 12 NE: 172 QRS: 36 QRSD: 98 T: 62 QT: 369 QTc: 449 Interpretive Statements SINUS RHYTHM NONSPECIFIC ST & T-WAVE ABNORMALITY Compared to ECG 11/06/2024 17:22:31 NO SIGNIFICANT CHANGES Electronically Signed On 11-08-2024 16:23:33 [employer] by Ismael Do M.D.
[2024-11-06 20:48] LABS: Troponin I < 0.012 ng/mL (0.000-0.034)
[2024-11-06 21:19] VITALS: BP 176/80; PULSE 97; RESP 26; O2SAT 98
[2024-11-06] MEDS: ASPIRIN 81 MG CHEWABLE TABLET 324 MG PO (21:40)
[2024-11-06] MEDS: HYDROcodone/acetaminophen (*CRX) 10-325 MG TABLET 1 TAB PO (21:40)
[2024-11-06] MEDS: BELLADONNA ALK/PHENOB ELIX 10 ML, MAG HYDROX/ALUMINUM HYD/SIMETH 30 ML, LIDOCAINE 2% VI... PO (21:42)
--- NOTE | 2024-11-06 22:46 | PM.IMHP ---
H&P: HPI History of Present Illness Date/Time: 11/06/24 22:46 Chief Complaint: pain with breathing Narrative: This 64-year-old male with past medical history significant for tobacco dependence, COPD/emphysema, obstructive sleep apnea, obesity, hypertension, chronic low back pain, aortic stenosis. Patient presents to the emergency room with complaints of chest pain with deep inspiration, denies hemoptysis has had a persistent cough productive of white sputum, denies weight loss, denies fevers, no rigors no chills, has had good appetite. Patient was seen a month ago where CT of the chest showed hilar mass which has been found again enlarged from previous. Patient has been admitted for further evaluation management and treatment. CHEST RADIOGRAPH, PA AND LATERAL CLINICAL HISTORY: chest pain . COMPARISON: 12/17/2023 TECHNIQUE: PA and lateral views of the chest. FINDINGS The cardiomediastinal silhouette is unremarkable. The lungs are clear. Visualized osseous structures and soft tissues are unremarkable. IMPRESSION: No focal infiltrate or effusion. EXAMINATION: CTA chest PE protocol DATE: 11/06/2024 18:50 VISUAL MERCHANDISER INDICATION: Chest pain and shortness of breath. TECHNIQUE: Computed tomographic angiography (CTA) of the chest was performed with 100 mL Omnipaque-350 intravenous contrast. The dose-length product was 1046.75 mGy-cm. Maximum intensity projection 3D-reconstructions of the aorta and other arteries were constructed by the technologist on a separate workstation. COMPARISON: None. FINDINGS: No filling defects within the main or proximal pulmonary arteries. The thoracic aorta is unremarkable without aneurysmal dilatation or dissection. A 14.8 mm soft tissue attenuation focus is identified within the right hilum, possibly an enlarged hilar lymph node for which follow-up is recommended (axial series, image 162). This area is increased in size from previous lung CT dated 10/19/2021 when it measured 10.4 mm (axial series image 78). The remainder of the lungs are clear. Redemonstration of the focus of decreased attenuation within the T2 vertebral body, unchanged from 2020. The remainder of the visualized osseous structures are unremarkable. Within the upper abdomen: Retained gastric contents within the stomach and decompression of the gallbladder, consistent with recent oral intake. Remainder of the upper abdomen is unremarkable. IMPRESSION: No pulmonary embolus. No aortic dissection. Increase in size of a focus of soft tissue attenuation adjacent to the right hilum when compared with previous examination dated 10/19/2021 for which follow-up as per Fleischner guidelines is recommended (tissue sampling, follow-up in 3 months, or PET/CT). [facility] Past Medical History Medical History Chronic prescription opiate use Chronic back pain Chronic neck pain Thyroid dysfunction Aortic stenosis Cervical radiculopathy Dyslipidemia Vitamin D deficiency History of colon polyps History of DVT (deep vein thrombosis) Bowel trouble Weakness Difficulty breathing Difficulty sleeping Head trauma Fatigue Numbness Arthritis Constipation Obstructive sleep apnea (~10/2020) Spinal stenosis History of transient ischemic attack Tobacco abuse Osteoarthritis Depression COPD (chronic obstructive pulmonary disease) High cholesterol Hypertension Surgical History Surgical History History of laparoscopic appendectomy 04/02/24 History of eye surgery 1963 History of knee surgery H/O discectomy x2 Family History Family History Father Alcohol abuse Hypertension Lung cancer Mother Hypertension Cerebrovascular accident CHF (congestive heart failure) Sibling Diabetes mellitus Anxiety Depression Hypertension Son Cancer Hypertension Social History Social History Smoking packs per day: 1 Smoking cigarettes per day: 20.0 Years smoked: 55 Smoking pack-years: 55.00 Smoking status: Current every day smoker Tobacco type: cigarettes Second hand tobacco smoke exposure: Yes Additional smoking assessment comments: Daily marijuana Alcohol intake: never Substance use: current Substance use type: marijuana Other substance usage details: Daily marijuana Do You Feel Safe in your Home?: Yes Lack of Transportation: No Lack of Food: Never True Current Housing: I Have Housing Concerned About Future Housing: No Difficulty Paying Gas/Electric Bills: No Difficulty Paying for Meds: No Currently Unemployed: No Education: Grade School Difficulty w/ Childcare or Family Care: No Living arrangements: with family Spiritual care concerns: No Meds Home Medications and Allergies Home Medications ?Medication ?Instructions ?Recorded ?Confirmed ?Type aspirin 81 mg tablet 81 mg PO DAILY 11/30/21 04/24/24 History ergocalciferol (vitamin D2) 1,250 1,250 mcg PO WEEKLY #12 caps 09/18/23 04/24/24 Rx mcg (50,000 unit) capsule levothyroxine 50 mcg tablet 50 mcg PO DAILY #90 tabs 12/13/23 04/24/24 Rx losartan 100 1 tablet PO DAILY #90 tabs 01/05/24 04/24/24 Rx mg-hydrochlorothiazide 25 mg tablet atorvastatin 20 mg tablet See Rx Instructions .Route 03/13/24 04/24/24 Rx .COMPLEX #90 tabs fluticasone fur. 100 mcg-umeclid 1 inh inhalation Q24H #60 ea 03/13/24 04/24/24 Rx 62.5 mcg-vilant 25 mcg inhalat.powder (Trelegy Ellipta) terbinafine HCl 1 % topical cream 1 applic topical BID #30 grams 03/13/24 04/24/24 Rx (Athlete's Foot (terbinafine)) plecanatide 3 mg tablet 3 mg PO DAILY #90 tabs 03/26/24 04/24/24 Rx Allergies Allergy/AdvReac Type Severity Reaction Status Date / Time codeine Allergy Unknown Unknown Verified 11/06/24 17:14 cyclobenzaprine Allergy Unknown Unknown Verified 11/06/24 17:14 methocarbamol Allergy Unknown Unknown Verified 11/06/24 17:14 gabapentin AdvReac Mild Agitated Verified 11/06/24 17:14 nalbuphine AdvReac Unknown Vomiting Verified 11/06/24 17:14 Vital Signs Vital Signs - 24 hr 11/06/24 17:19 11/06/24 21:17 11/06/24 21:19 Temperature 98.0 F Pulse Rate 95 97 Respiratory Rate 17 26 H Blood Pressure 175/94 H 176/80 H Pulse Oximetry 99 98 Oxygen Delivery Room Air Exam Narrative: Sitting on a stretcher Const: General: comfortable, no acute distress, well developed, alert, awake and overweight Nutritional Appearance: overweight Orientation/consciousness: patient oriented x3 Other: Well-appearing HENMT: Head: normal to inspection, normocephalic and atraumatic Ears: hearing grossly normal bilaterally Face/Nose/Sinus: normal facial exam Face and sinus: normal facial exam Eyes: General: appearance normal, both eyes and all related structures Pupils: Equal, round and reactive pupils present EOM: EOMs intact bilaterally Neck: Neck: full ROM, no lymphadenopathy and no JVD Thyroid: thyroid normal Lymphatic: no lymphadenopathy noted Resp: Effort & Inspection: normal respiratory effort and able to speak in complete sentences Auscultation: clear to auscultation bilaterally Cardio: Jugular venous distension: no JVD Rate: regular rate Rhythm: regular rhythm Heart sounds: S1 normal heart sound present and S2 normal heart sound present GI: GI Palp: Yes Soft to palpation and Yes No hepatosplenomegaly present : General: Yes deferred Skin: Rashes: no rashes Wounds: no wounds Neuro: General: patient oriented x3 and CN's II-XI intact bilaterally Cranial nerves: Yes CN's II-XII intact bilaterally and Yes Equal, round and reactive pupils present Cognition (Neuro): normal cognition Speech: normal speech Gait exam (Neuro): Normal gait present Motor exam (neuro): 5/5 motor strength present throughout Extrem: General: normal to inspection, full ROM, no joint enlargement and no pedal edema H&P: Results Labs Labs: Short CBC 11/06/24 Range/Units 17:29 WBC 13.2 H (4.5-10.0) K/mm3 Hgb 16.0 (14.0-18.0) g/dL Hct 47.7 (42.0-52.0) % Plt Count 247 D (150-375) k/mm3 BMP 11/06/24 17:29 Sodium 135 L Potassium 4.0 Chloride 104 Carbon Dioxide 25 BUN 14 Creatinine 0.71 Glucose 153 H Calcium 8.9 Cardiac Enzymes 11/06/24 11/06/24 Range/Units 17:29 20:16 Troponin I < 0.012 < 0.012 (0.000-0.034) ng/mL Liver Function 11/06/24 Range/Units 17:29 Total Bilirubin 0.8 (0.2-1.3) mg/dL AST 32 (17-59) U/L ALT 32 (6-50) U/L Alkaline Phosphatase 85 (38-126) U/L Albumin 4.3 (3.5-5.1) g/dL Assessment and Plan Assessment and plan (1) Hilar mass: Code(s): R91.8 - Other nonspecific abnormal finding of lung field Status: Acute Assessment and Plan: Placed in observation Pulmonology consult (2) Uncontrolled hypertension: Code(s): I10 - Essential (primary) hypertension Status: Acute Assessment and Plan: Restart home meds Continue to monitor (3) Aortic stenosis: Code(s): I35.0 - Nonrheumatic aortic (valve) stenosis Status: Acute Assessment and Plan: Continue to monitor (4) Chest pain: Qualifiers: Chest pain type: other chest pain Qualified Code(s): R07.89 - Other chest pain Code(s): R07.9 - Chest pain, unspecified Status: Acute Assessment and Plan: Patient rule out for acute pulmonary embolism Lexiscan stress test negative on 12/29/2023 (5) Obesity: Code(s): E66.9 - Obesity, unspecified Status: Acute Assessment and Plan: Lifestyle and diet modifications (6) Chronic low back pain: Qualifiers: Back pain laterality: unspecified Sciatica presence: unspecified whether sciatica present Qualified Code(s): M54.50 - Low back pain, unspecified; G89.29 - Other chronic pain Code(s): M54.50 - Low back pain, unspecified; G89.29 - Other chronic pain Status: Acute Assessment and Plan: Tylenol p.r.n. (7) COPD (chronic obstructive pulmonary disease): Code(s): J44.9 - Chronic obstructive pulmonary disease, unspecified Status: Acute Assessment and Plan: Breathing treatments Not actively wheezing (8) Obstructive sleep apnea: Onset Date: ~10/2020 Code(s): G47.33 - Obstructive sleep apnea (adult) (pediatric) Status: Acute Assessment and Plan: CPAP at nighttime (9) Tobacco dependence: Code(s): F17.200 - Nicotine dependence, unspecified, uncomplicated Status: Acute Assessment and Plan: Nicotine patch as needed Hospitalist MIPS Advance Care Plan I have confirmed that the patient's Advanced Care Plan is present, code status is documented, or surrogate decision maker is listed in patient medical record.: Yes Medication Reconciliation I have utilized all available resources to obtain, update and review the patients current medications (includes all prescriptions, OTC, herbals, cannabis, and nutritional supplements).: Yes
[2024-11-06 22:57] VITALS: BMI 36.2
--- NOTE | 2024-11-06 23:20 | ADMGEN ---
This patient, Monster Raymundo, was admitted to Medical Room 253-01. Patient/family oriented to hospital policies and general routines including ID bracelet, bed and alarms, visiting hours, pain management, procedures, bathroom and other care routines, personal items, smoking policy, room service/diet, and visiting hours. Information on how to activate the Rapid Response Team has been discussed. Patient/Family are encouraged to report perceived risks to care and to ask questions if they do not understand what they are told or what they should do.
[2024-11-06 23:36] VITALS: BP 157/79; PULSE 72; RESP 20; TEMP 36.9; O2SAT 97
[2024-11-07 00:25] LABS: Troponin I < 0.012 ng/mL (0.000-0.034)
[2024-11-07 06:00] VITALS: BP 135/71; PULSE 82; RESP 20; TEMP 36.8; O2SAT 97
[2024-11-07] MEDS: HYDROcodone/acetaminophen (*CRX) 10-325 MG TABLET 1 TAB PO (08:07)
[2024-11-07] MEDS: LEVOTHYROXINE SODIUM 50 MCG TABLET PO (10:04)
[2024-11-07] MEDS: hydroCHLOROthiazide 25 MG TABLET PO (10:04)
[2024-11-07] MEDS: LOSARTAN POTASSIUM 100 MG TABLET PO (10:05)
--- NOTE | 2024-11-07 10:45 | P.CONPL_ITS ---
Assessment and Plan Assessment and plan (1) Hilar mass: Code(s): R91.8 - Other nonspecific abnormal finding of lung field Status: Acute Assessment and Plan: Patient with 55 pack year history tobacco use. He has never had any hemoptysis. He has no weight loss. CT scan in the emergency department was negative for pulmonary embolism and a 14.8 mm soft tissue attenuation focus in the right hilum possibly an enlarged hilar lymph node for which follow-up is recommended. This area is increased in size from previous CT dated 10/19/2021 when it measured 10.4 mm. I reviewed the 10/19/2021 and 11/06/2024 CT scans of the chest with interventional radiology and it is felt that this is a hilar lymph node and measured 13.1 mm on 10/19/2021 and currently measures 14 mm. Plan: My recommendation at this time is to repeat a CT scan in 3-6 months to ensure stability of this hilar lymph node. Patient follows up with Dr. Babin and this can be performed within there hospital system as apparently the patient had a scan [address] Babin. Discussed with Dr. Angel, will sign off, call with questions. History of Present Illness History of Present Illness Consult date: 11/07/24 Chief complaint: Chest mass; Chest pain Narrative: 11/07/2024: This is a new pulmonary consult for lung nodule. 64-year-old with a history of tobacco use, presented to the emergency department on 11/06/2024 with chest pain shortness of breath and a burning midsternal chest pain. CT scan in the emergency department was negative for pulmonary embolism and a 14.8 mm soft tissue attenuation focus in the right hilum possibly an enlarged hilar lymph node for which follow-up is recommended. This area is increased in size from previous CT dated 10/19/2021 when it measured 10.4 mm. Patient has a tobacco history of 1 pack per day since age 9 for a total of 55 pack years. He was exposed to secondhand smoke from both of his parents. Patient smokes marijuana daily for the last 45 years at approximately 25 inhalations a day. 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 Patient has been gaining weight. He has exercise limitations at 1/2 block due to hip pain rather than shortness of breath. Patient tells me that 3 months ago he had a CT scan at [facility] as part of a lung screening program for his tobacco use through Dr. Babin. Dr. Babin told him it was pneumonia and also that there was possible lung cancer. The patient was referred to [facility] but the patient tells me they did not except his referral because there was no evidence of cancer. Dr. Babin apparently did not perform any additional follow-up for the CT scan. 11/07/2024: Patient tells me his pain is gone he has a little bit of chest tightness. Overall he is breathing back to his normal. He is on room air with saturations 97%. Review of Systems 2 Constitutional: Constitutional: Reports no additional constitutional complaints Eyes: Eyes: Reports no additional eye complaints ENT: Reports system reviewed and no additional complaints, except as documented Cardiovascular: Cardiovascular: Reports no additional cardiovascular complaints Respiratory: Respiratory: Reports no additional respiratory complaints Gastrointestinal: Gastrointestinal: Reports no additional gastrointestinal complaints Musculoskeletal: Musculoskeletal: Reports no additional musculoskeletal complaints Neurologic: Reports system reviewed and no additional complaints, except as documented Psychiatric: Psychiatric: Reports no additional psychiatric complaints Endocrine: Endocrine: Reports no additional endocrine complaints Hematologic/Lymphatic: Hematologic/Lymphatic: Reports no additional hematologic/lymphatic complaints Allergic/Immunologic: Allergic/Immunologic: Reports no additional allergic/immunologic complaints [facility] Past Medical History Medical History Chronic prescription opiate use Chronic back pain Chronic neck pain Thyroid dysfunction Aortic stenosis Cervical radiculopathy Dyslipidemia Vitamin D deficiency History of colon polyps History of DVT (deep vein thrombosis) Bowel trouble Weakness Difficulty breathing Difficulty sleeping Head trauma Fatigue Numbness Arthritis Constipation Obstructive sleep apnea (~10/2020) Spinal stenosis History of transient ischemic attack Tobacco abuse Osteoarthritis Depression COPD (chronic obstructive pulmonary disease) High cholesterol Hypertension Surgical History Surgical History History of laparoscopic appendectomy 04/02/24 History of eye surgery 1963 History of knee surgery H/O discectomy x2 Family History Family History Father Alcohol abuse Hypertension Lung cancer Mother Hypertension Cerebrovascular accident CHF (congestive heart failure) Sibling Diabetes mellitus Anxiety Depression Hypertension Son Cancer Hypertension Social History Social History Smoking packs per day: 1 Smoking cigarettes per day: 20.0 Years smoked: 55 Smoking pack-years: 55.00 Smoking status: Never smoker Tobacco type: cigarettes Second hand tobacco smoke exposure: No Additional smoking assessment comments: Daily marijuana Alcohol intake: former Substance use: current Substance use type: marijuana Other substance usage details: Daily marijuana Do You Feel Safe in your Home?: Yes Lack of Transportation: No Lack of Food: Never True Current Housing: I Have Housing Concerned About Future Housing: No Difficulty Paying Gas/Electric Bills: No Difficulty Paying for Meds: No Currently Unemployed: No Education: High School Diploma/GED Difficulty w/ Childcare or Family Care: No Living arrangements: with family Spiritual care concerns: No Meds Home Medications and Allergies Home Medications ?Medication ?Instructions ?Recorded ?Confirmed ?Type aspirin 81 mg tablet 81 mg PO DAILY 11/30/21 11/06/24 History ergocalciferol (vitamin D2) 1,250 1,250 mcg PO WEEKLY #12 caps 09/18/23 11/06/24 Rx mcg (50,000 unit) capsule levothyroxine 50 mcg tablet 50 mcg PO DAILY #90 tabs 12/13/23 11/06/24 Rx losartan 100 1 tablet PO DAILY #90 tabs 01/05/24 11/06/24 Rx mg-hydrochlorothiazide 25 mg tablet atorvastatin 20 mg tablet See Rx Instructions .Route 03/13/24 11/06/24 Rx .COMPLEX #90 tabs plecanatide 3 mg tablet 3 mg PO DAILY #90 tabs 03/26/24 11/06/24 Rx hydrocodone 10 mg-acetaminophen 1 tablet PO BID PRN chronic pain 11/06/24 11/06/24 History 325 mg tablet Allergies Allergy/AdvReac Type Severity Reaction Status Date / Time codeine Allergy Unknown Unknown Verified 11/06/24 17:14 cyclobenzaprine Allergy Unknown Unknown Verified 11/06/24 17:14 methocarbamol Allergy Unknown Unknown Verified 11/06/24 17:14 gabapentin AdvReac Mild Agitated Verified 11/06/24 17:14 nalbuphine AdvReac Unknown Vomiting Verified 11/06/24 17:14 Vital Signs Vital Signs - 24 hr 11/06/24 17:19 11/06/24 21:17 11/06/24 21:19 Temperature 36.7 C Pulse Rate 95 97 Respiratory Rate 17 26 H Blood Pressure 175/94 H 176/80 H Pulse Oximetry 99 98 Oxygen Delivery Room Air 11/06/24 23:36 11/07/24 06:00 11/07/24 08:00 Temperature 36.9 C 36.8 C Pulse Rate 72 82 Respiratory Rate 20 20 Blood Pressure 157/79 H 135/71 Pulse Oximetry 97 97 Oxygen Delivery Room Air Exam 2 Const: General: cooperative, healthy appearing and comfortable O rientation/consciousness: oriented to person, oriented to place and oriented to time HENMT: Head: normal to inspection Ears: hearing grossly normal bilaterally Eyes: General: appearance normal, both eyes and all related structures Neck: Neck: normal visual inspection Chest: Chest palpation & inspection: normal inspection of the chest Resp: Effort & Inspection: normal respiratory effort and able to speak in complete sentences Auscultation: no crackles, no rales, no rhonchi, no wheezes and lung sounds not diminished Cardio: Jugular venous distension: no JVD GI: Inspection: normal to inspection GI Palp: No abdominal tenderness Skin: General skin exam: normal color Neuro: General: oriented to person, oriented to place and oriented to time Extrem: General: normal to inspection Psych: Appearance: grossly normal Results Laboratory Findings 11/06/24 17:29 11/06/24 17:29 ABG, PT/INR, D-dimer: PT/INR, D-dimer PT 12.9 Seconds (11.1-14.7) 11/06/24 17:29 INR 1.0 11/06/24 17:29 Abnormal lab findings: Abnormal Labs 11/06/24 17:29 WBC 13.2 H MPV 11.2 H Lymph # (Auto) 4.18 H [place] # (Auto) 0.7 H Abs Immat Gran (auto) 0.04 H Absolute Neuts (auto) 8.0 H Sodium 135 L Glucose 153 H Diagnostic Findings Additional studies: EXAMINATION: CTA chest PE protocol DATE: 11/06/2024 18:50 TERRA COTTA SETTER INDICATION: Chest pain and shortness of breath. TECHNIQUE: Computed tomographic angiography (CTA) of the chest was performed with 100 mL Omnipaque-350 intravenous contrast. The dose-length product was 1046.75 mGy-cm. Maximum intensity projection 3D-reconstructions of the aorta and other arteries were constructed by the technologist on a separate workstation. COMPARISON: None. FINDINGS: No filling defects within the main or proximal pulmonary arteries. The thoracic aorta is unremarkable without aneurysmal dilatation or dissection. A 14.8 mm soft tissue attenuation focus is identified within the right hilum, possibly an enlarged hilar lymph node for which follow-up is recommended (axial series, image 162). This area is increased in size from previous lung CT dated 10/19/2021 when it measured 10.4 mm (axial series image 78). The remainder of the lungs are clear. Redemonstration of the focus of decreased attenuation within the T2 vertebral body, unchanged from 202. The remainder of the visualized osseous structures are unremarkable. Within the upper abdomen: Retained gastric contents within the stomach and decompression of the gallbladder, consistent with recent oral intake. Remainder of the upper abdomen is unremarkable. IMPRESSION: No pulmonary embolus. No aortic dissection. Increase in size of a focus of soft tissue attenuation adjacent to the right hilum when compared with previous examination dated 10/19/2021 for which follow- up as per Fleischner guidelines is recommended (tissue sampling, follow-up in 3 months, or PET/CT).
--- NOTE | 2024-11-07 11:28 | P.DS_ITS ---
DS: Admitting Diagnosis Discharge Date 11/07/2024 Admitting Diagnosis pain with breathing DS: Discharge Diagnosis Discharge Diagnosis (1) Hilar mass: Code(s): R91.8 - Other nonspecific abnormal finding of lung field Status: Acute Assessment and Plan: Placed in observation Pulmonology consult (2) Uncontrolled hypertension: Code(s): I10 - Essential (primary) hypertension Status: Acute Assessment and Plan: Restart home meds Continue to monitor (3) Aortic stenosis: Code(s): I35.0 - Nonrheumatic aortic (valve) stenosis Status: Acute Assessment and Plan: Continue to monitor (4) Chest pain: Qualifiers: Chest pain type: other chest pain Qualified Code(s): R07.89 - Other chest pain Code(s): R07.9 - Chest pain, unspecified Status: Acute Assessment and Plan: Patient rule out for acute pulmonary embolism Lexiscan stress test negative on 12/29/2023 (5) Obesity: Code(s): E66.9 - Obesity, unspecified Status: Acute Assessment and Plan: Lifestyle and diet modifications (6) Chronic low back pain: Qualifiers: Back pain laterality: unspecified Sciatica presence: unspecified whether sciatica present Qualified Code(s): M54.50 - Low back pain, unspecified; G89.29 - Other chronic pain Code(s): M54.50 - Low back pain, unspecified; G89.29 - Other chronic pain Status: Acute Assessment and Plan: Tylenol p.r.n. (7) COPD (chronic obstructive pulmonary disease): Code(s): J44.9 - Chronic obstructive pulmonary disease, unspecified Status: Acute Assessment and Plan: Breathing treatments Not actively wheezing (8) Obstructive sleep apnea: Onset Date: ~10/2020 Code(s): G47.33 - Obstructive sleep apnea (adult) (pediatric) Status: Acute Assessment and Plan: CPAP at nighttime (9) Tobacco dependence: Code(s): F17.200 - Nicotine dependence, unspecified, uncomplicated Status: Acute Assessment and Plan: Nicotine patch as needed DS: Summary Hospital Course Hospital Course: 64-year-old male with past medical history significant for tobacco dependence, COPD/emphysema, obstructive sleep apnea, obesity, hypertension, chronic low back pain, aortic stenosis. Patient presents to the emergency room with complaints of chest pain with deep inspiration, denies hemoptysis has had a persistent cough productive of white sputum, denies weight loss, denies fevers, no rigors no chills, has had good appetite. Patient was seen a month ago where CT of the chest showed hilar mass which has been found again enlarged from previous. Patient has been admitted for further evaluation management and treatment. Long discussion with pulmology MD CT scans were reviwed with pulmology and radiology MD looks like a lymph node not a true hilar mass as per pulmonology no further tests planned at this time. plan to - rpt CT chest in 3 months time Pt to keep copy of previous CT scan from [facility] and here IF ct scan is worst in 3 months time can refer to pulmonology clinic at that time Time Spent with Patient Time attestation: Total time spent providing and/or coordinating discharge services:55 minutes on day of dc Exam Narrative: Sitting on a stretcher Const: General: comfortable, no acute distress, well developed, alert, awake and overweight Nutritional Appearance: overweight Orientation/consciousness: patient oriented x3 Other: Well-appearing HENMT: Head: normal to inspection, normocephalic and atraumatic Ears: hearing grossly normal bilaterally Face/Nose/Sinus: normal facial exam Face and sinus: normal facial exam Eyes: General: appearance normal, both eyes and all related structures Pupils: Equal, round and reactive pupils present EOM: EOMs intact bilaterally Neck: Neck: full ROM, no lymphadenopathy and no JVD Thyroid: thyroid normal Lymphatic: no lymphadenopathy noted Resp: Effort & Inspection: normal respiratory effort and able to speak in complete sentences Auscultation: clear to auscultation bilaterally Cardio: Jugular venous distension: no JVD Rate: regular rate Rhythm: regular rhythm Heart sounds: S1 normal heart sound present and S2 normal heart sound present : General: Yes deferred Skin: Rashes: no rashes Wounds: no wounds Neuro: General: patient oriented x3 and CN's II-XI intact bilaterally Cranial nerves: Yes CN's II-XII intact bilaterally and Yes Equal, round and reactive pupils present Cognition (Neuro): normal cognition Speech: normal speech Gait exam (Neuro): Normal gait present Motor exam (neuro): 5/5 motor strength present throughout Extrem: General: normal to inspection, full ROM, no joint enlargement and no pedal edema DS: Data Data Completed and Pending Labs on day of discharge: Labs from last 24 hours 11/06/24 11/06/24 11/06/24 23:59 20:16 17:29 WBC 13.2 H RBC 5.10 Hgb 16.0 Hct 47.7 MCV 93.5 MCH 31.4 MCHC 33.5 RDW 13.2 Plt Count 247 D MPV 11.2 H Immature Gran % (Auto) 0.3 Neut % (Auto) 60.7 Lymph % (Auto) 31.6 [place] % (Auto) 5.1 Eos % (Auto) 1.8 Baso % (Auto) 0.5 Lymph # (Auto) 4.18 H [place] # (Auto) 0.7 H Eos # (Auto) 0.2 Baso # (Auto) 0.1 Abs Immat Gran (auto) 0.04 H Absolute Neuts (auto) 8.0 H Absolute Nucleated RBC 0.000 Nucleated RBC % 0.0 PT 12.9 INR 1.0 APTT 30.3 Sodium 135 L Potassium 4.0 Chloride 104 Carbon Dioxide 25 Anion Gap 6 BUN 14 Creatinine 0.71 Estim Creat Clear Calc 122 Estimated GFR > 60 Glucose 153 H Calcium 8.9 Total Bilirubin 0.8 AST 32 ALT 32 Alkaline Phosphatase 85 Troponin I < 0.012 < 0.012 < 0.012 NT-Pro-B Natriuret Pep 29 Total Protein 7.0 Albumin 4.3 Lipase 45 Discharge Plan Discharge Attending physician on discharge: Sofya Angel Consulting providers: Monster Olivarez; Mirta Huizar; Mirtha Denny Discharging Clinician: Sofya Angel Anticipated Discharge Date/Time: 11/07/24 13:00 Patient Disposition: Home, Self-Care Activity: as tolerated Diet: heart healthy Discharge Instructions: rpt CT chest in 3 months time Pt to keep copy of previous CT scan from [facility] and here IF ct scan is worst in 3 months time can refer to pulmonology clinic at that time Patient Instructions: Antibiotic Form Patient Language: American Stand Alone Forms: General Discharge Information Follow-up/Referrals: Filippo,Valencia Hanson MD [Primary Care Provider] - (in 2-3 months time ) Discharge Medications: Continued losartan-hydrochlorothiazide 100-25 mg tablet 1 tablet PO DAILY Qty: 90 2RF atorvastatin 20 mg tablet See Rx Instructions .ROUTE .COMPLEX Qty: 90 2RF Dose Instruction: TAKE 1 TABLET BY MOUTH EVERY DAY AT BEDTIME Rx Instructions: TAKE 1 TABLET BY MOUTH EVERY DAY AT BEDTIME aspirin 81 mg Tablet 81 mg PO DAILY hydrocodone-acetaminophen 10-325 mg tablet 1 tablet PO BID PRN (Reason: chronic pain) ergocalciferol (vitamin D2) 1,250 mcg (50,000 unit) capsule 1,250 mcg PO WEEKLY Qty: 12 1RF levothyroxine 50 mcg tablet 50 mcg PO DAILY Qty: 90 1RF Discontinued plecanatide 3 mg tablet 3 mg PO DAILY Qty: 90 1RF Date of admission: 11/06/24 22:05 Primary Care Provider: Olaf,Valencia Hanson Admitting Provider: Charlee Chapin V. Attending physician on admission: Sofya Angel Condition: Stable
== END 2024-11-07 12:05 | disposition home or self-care (01) ==
LOC: ANHED 22:09 → ANH2MED 11-07 11:27
PROVIDERS: Student in an Organized Health Care Education/Training Program; Admitting Provider Internal Medicine; Emergency Provider Emergency Medicine; PCP Family Medicine; Visit Provider Family Medicine
DX: R07.89 Other chest pain (principal); R91.8 Other nonspecific abnormal finding of lung field; J43.9 Emphysema, unspecified; F17.210 Nicotine dependence, cigarettes, uncomplicated; G47.33 Obstructive sleep apnea (adult) (pediatric); E66.9 Obesity, unspecified; Z68.36 Body mass index [BMI] 36.0-36.9, adult; I10 Essential (primary) hypertension; M54.50 Low back pain, unspecified; G89.29 Other chronic pain; I35.0 Nonrheumatic aortic (valve) stenosis; Z79.82 Long term (current) use of aspirin; Z79.899 Other long term (current) drug therapy
CPT/HCPCS: 36415; 71046; 71275; 80053; 83690; 83880; 84484; 85025; 85610; 85730; 93005; 99285; A9270; G0378; G0379; Q9967

== ENCOUNTER 2025-05-30 15:39 | Emergency (ER) | payer OTHER, SELFPAY ==
--- NOTE | ~2025-05-30 | CT_ITS ---
EXAMINATION: CT diagnostic chest w con DATE: 05/30/2025 19:27 INDICATION: hilar lymph node fna bx yesterday, pleuritic pain TECHNIQUE: Computed tomography (CT) of the chest was performed with 100 mL Omnipaque-350 intravenous contrast. Automated exposure control and iterative reconstruction technique were employed. The dose-l ength product was 735.24 mGy-cm. COMPARISON: [facility] 11/06/2024. FINDINGS: CHEST: Thoracic aorta: Mildly dilated ascending aorta measuring up to 4.1 cm. Moderate atherosclerotic calci fications. Lung parenchyma and airways: Patent airways. No focal consolidation. Peripheral reticular, tree-in-bu d and centrilobular nodular opacities in the upper lungs. Scattered sub-6 mm pulmonary nodules. Thoracic inlet, axillae and chest wall: Mild symmetric gynecomastia. No thyroid mass. No axillary lym phadenopathy. Mediastinum: Enlarged mediastinal and bilateral hilar nodes. Although not ordered as a CT pulmonary a nd ground, there is excellent opacification of the pulmonary arteries and no emboli are detected.. Mi ldly dilated central pulmonary arteries as can be seen with pulmonary arterial hypertension. Heart and pericardium: Normal heart size. Aortic valve calcification. No pericardial effusion. Coronary artery calcifications: Moderate. Pleura: No effusion or mass. Upper abdomen: Subcentimeter right adrenal low density, likely adenoma. Thoracic bones: No acute osseous finding in the chest. Stable focal lytic lesion in T3. IMPRESSION: No acute thoracic process detected. Respiratory bronchiolitis versus chronic interstitial lung disease. Mediastinal and hilar lymphadenopathy. CT findings suggestive of pulmonary hypertension. Multiple sub-6 mm pulmonary nodules, if the patient is at high risk consider an optional low-dose non contrast CT of the chest in one year. Ascending thoracic aortic ectasia. Reviewed, dictated and finalized at location K. IMPRESSION: No acute thoracic process detected. Respiratory bronchiolitis versus chronic interstitial lung disease. Mediastinal and hilar lymphadenopathy. CT findings suggestive of pulmonary hypertension. Multiple sub-6 mm pulmonary nodules, if the patient is at high risk consider an optional low-dose noncontrast CT of the chest in one year. Ascending thoracic aortic ectasia.
--- OUTSIDE RECORDS SUMMARY | 2025-05-30 15:42 | XMS_ITS | Clinical Summary ---
Author Organization [facility] [address] Address [address] [place] [address] Care Team Providers Care Network Security Engineer Name Role Phone Mirtha Dorado NP Primary Care Provider [phone] Allergies Active Allergy Reactions Criticality Noted Date Comments Codeine Itching Low 07/12/2017 Gabapentin Unknown,Other (See comments) 016 makes me angry Nalbuphine Diarrhea,Dizziness,N ausea And Vomiting,Nausea only,Vomiting Low 2012 Medications aspirin 81 mg enteric coated tablet Take 1 tablet (81 mg total) by mouth daily Active atorvastatin (LIPITOR) 20 mg tablet Take 1 tablet (20 mg total) by mouth daily Active ergocalciferol (VITAMIN D) 50,000 unit capsule Take 1 capsule (50,000 Units total) by mouth once a week Active levothyroxine (SYNTHROID) 50 mcg tablet Take 1 tablet (50 mcg total) by mouth daily 8 06/23/20 25 Active losartan-hydroc hlorothiazide (HYZAAR) 100-25 mg per tablet Take 1 tablet by mouth daily Active morphine ER (MS CONTIN) 15 mg 12 hr tablet Take 1 tablet (15 mg total) by mouth 2 (two) times a day Active Trulance 3 mg tablet Take 1 tablet (3 mg total) by mouth daily 5 Active aluminum-magnes ium hydroxide-simet hicone (MAALOX) suspension 200-200-20 mg/5 mL Take by mouth 05/15/20 25 Discontinu ed(Therapy completed) Active Problems Problem Noted Date Diagnosed Date Mediastinal adenopathy 05/07/2025 Encounters Date Type Department Care Team Description 05/29/2025 12:29 PM CDT - 05/29/2025 11:59 [place] [address] Discharge Disposition: Discharge to home or self care 05/29/2025 9:54 AM CDT Anesthesia Event [facility] Operating Room [address] [place] [address] Bernardo Garcia MD 05/29/2025 9:15 AM CDT - 05/29/2025 11:15 AM CDT Surgery [facility] Operating Room [address] [place] [address] Abdirahman Stewart MD Bronchoscopy with Linear Endobroncial Ultrasound, Fine Needle Aspirate and Bronchoalveolar Lavage 05/29/2025 6:36 AM CDT - 05/29/2025 1:52 PM CDT Hospital Encounter [facility] Operating Room [address] [place] [address] Abdirahman Stewart MD Mediastinal adenopathy Discharge Disposition: Discharge to home or self care 05/07/2025 Telephone [facility] Pulmonology [address] [place] [phone] Abdirahman Stewart MD 05/07/2025 Telephone [facility] Pulmonary at [address] [place] [address] Sanna Dorantes LPN Bronchoscopy 04/29/2025 1:00 PM CDT Office Visit [facility] Pulmonary at [address] [place] [address] Abdirahman Stewart MD Centrilobular emphysema (HCC) (Primary Dx); Hilar lymphadenopathy; Cigarette nicotine dependence without complication; ILD (interstitial lung disease) (HCC) from Last 3 Months Surgical History Surgery Date Site/Laterality Comments BACK SURGERY Back Surgery - (Added by TW Conv) twice EYE SURGERY VASCULAR SURGERY bypass in groin Medical History Medical History Date Comments HTN (hypertension) Thyroid disease Sleep apnea Hyperlipidemia Murmur Constipation due to opioid therapy Family History Medical History Relation Name Comments Diabetes Child Cancer Father Emphysema Father Hypertension Father Diabetes Granddaughter Heart disease Mother Hypertension Mother Cancer Paternal Half-Sister Asthma Sister Diabetes Sister Hypertension Sister Relation Name Status Comments Child Alive Father Granddaughter Alive Mother Paternal Half-Sister Sister Social History Tobacco Use Types Packs/Day Years Used Date Smoking Tobacco: Every Day Cigarettes 1 50 Tobacco Cessation:Ready to Q uit: No; Counseling Given: Yes AUDIT-C Answer Date Recorded Q1: How often do you have a drink containing alc ohol? Monthly or less 05/22/2025 Q2: How many drinks containi ng alcohol do you have on a typical day when you are drinking? 1 or 2 05/22/2025 Q3: How often do you have si x or more drinks on one occasion? Never 05/22/2025 Personal Safety Answer Date Recorded Have you ever been in or are you currently in a harmful physical or emotional relationship or is someone making you feel afraid or unsafe? 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 Gender Identity Not on file Sexual Orientation Not on file Obstetrics History Last Filed Vital Signs Vital Sign Reading Time Taken Comments Blood Pressure 158/88 05/29/2025 1:46 PM CDT Pulse 79 05/29/2025 1:46 PM CDT Temperature 36.2 C (97.1 F) 05/29/2025 1:46 PM CDT Respiratory Rate 18 05/29/2025 1:46 PM CDT Oxygen Saturation 97% 05/29/2025 1:46 PM CDT Inhaled Oxygen Concentration - - Weight 112.9 kg (248 lb 14.4 oz) 05/29/2025 7:36 AM CDT Height 185.4 cm (6' 1) 05/29/2025 7:36 AM CDT Body Mass Index 32.84 05/29/2025 7:36 AM CDT Plan of Treatment Health Maintenance Due Date Last Done Comments Colon Cancer Screening-Colonoscopy 1960 Depression Screening 1960 Hepatitis C Screening 1958 Prostate Cancer Screening-PSA 1958 Hepatitis B Screening 1976 Pneumococcal vaccine 65+ (1 of 2 - PCV) 1977 Zoster Vaccine (1 of 2) 2008 Abdominal Aortic Aneurysm (A AA) Screen 2023 Well Visit 65+ 2023 DTaP/Tdap/Td Vaccine (2 - Td or Tdap) 03/10/202409/2014 Covid-19 Vaccine (4 - season) 2024 11/14/2021, 05/06/2021, 04/14/2021 Influenza Vaccine (#1) 2025 08/12/2024 Lung Cancer Screening 07/30/2025 07/30/2024, 018 Fall Risk Assessment 05/07/2026 05/07/2025 Procedures Procedure Name Priority Date/Time Associated Diagnosis Comments CELL DIFFERENTIAL, BODY FLUID Routine 05/29/2025 10:56 AM CDT CELL COUNT W/REFLEX DIFFERENTIAL, BODY FLUID Routine 05/29/2025 10:56 AM CDT MYCOLOGY (FUNGAL) CULTURE Routine 05/29/2025 10:56 AM CDT MYCOBACTERIOLOGY AFB CULTURE AND ACID-FAST STAIN Routine 05/29/2025 10:56 AM CDT AEROBIC CULTURE AND GRAM STAIN Routine 05/29/2025 10:56 AM CDT WY AN ELECTIVE ENDOTRACHEAL AIRWAY Routine 05/29/2025 10:09 AM CDT BRONCHOSCOPY ENDOBRONCHIAL ULTRASOUND 05/29/2025 9:37 AM CDT Mediastinal adenopathy ECG 12-LEAD STAT 05/29/2025 7:59 AM CDT POTASSIUM LEVEL STAT 05/29/2025 7:47 AM CDT from Last 3 Months Results * Cell Differential, Body Fluid (05/29/2025 10:56 AM CDT) Total cells diffed 100 % Comment: Interpretive Data Unless otherwise specified, the reference range and other method performance specifications have not been established for CSF/Body Fluid tests. The test results should be integrated into the clinical context for interpretation. Current interpretive data was last revised on 2019. Neutrophils, fld 5 % [facility] ([place]) Lymphs, fld 95 % [facility] ([place]) Fluid 05/29/2025 10:5 6 AM CDT 05/29/2025 11:25 AM CDT Abdirahman Stewart MD LAB BODY FLUIDS AND STOOLS ORDER MOLLY Final Result Performing Organization Address [facility] de Phone Number [facility] ([place]) [address] [facility] [place] [address] * Cell count w/rflx diff, body fluid (05/29/2025 10:56 AM CDT) Specimen type, fld Bronchial Color, fld White [facility] ([place]) Clarity, fld Cloudy [facility] ([place]) Nucleated cells, fld #NM /cumm [facility] ([place]) Comment: Interpretive Data Unless otherwise specified, the reference range and other method performance specifications have not been established for CSF/Body Fluid tests. The test results should be integrated into the clinical context for interpretation. Current interpretive data was last revised on 2019. RBC, fld Not Measured [facility] ([place]) Fluid 05/29/2025 10:5 6 AM CDT 05/29/2025 11:25 AM CDT Narrative [facility] ([place]) - 05/29/2025 11:54 AM CDT Right Middle Lobe Abdirahman Stewart MD LAB BODY FLUIDS AND STOOLS ORDER MOLLY Final Result Performing Organization Address [facility] Co de Phone Number [facility] ([place]) [address] [facility] [place] [address] * W[place] AN ELECTIVE ENDOTRACHEAL AIRWAY (05/29/2025 10:09 AM CDT) Narrative Chi Alatorre CRNA - 05/29/2025 10:09 AM CDT Chi Alatorre CRNA 05/29/2025 10:09 AM Airway Patient location: OR Urgency: elective Indications for airway management: anesthesia Difficult airway: no Staff: Placed by: ARMORED VEHICLE OFFICER: Chi Alatorre CRNA Emergent airway documentation: Risks and benefits discussed: yes Consent obtained: yes Consent given by: patient Airway prep: Preoxygenated: yes Patient position: sniffing MILS maintained throughout: yes Mask difficulty assessment: 0 - not attempted Sedation level during airway: GA Final airway details: Final airway type: endotracheal airway Tube type: ETT ETT size: 8.5 mm Cuffed: yes Technique used for successful ETT placement: video laryngoscopy Devices/Methods used in placement: stylet Insertion site: oral Blade type: Eddie Video blade type: Murray Blade size: 3 Cormack-Lehane (video): grade I - full view of glottis Cuff volume: 7 mL Cuff inflated with: air ETT to teeth: 22 cm ETT to gums: 22 cm Placement verified by: auscultation and CO2 detection Airway secured with: silk tape Number of attempts: 1 Bernardo Garcia MD ANESTHESIA ORDERABLES Final Result * ECG 12 lead (05/29/2025 7:59 AM CDT) 05/29/2025 7:59 AM CDT Narrative [facility] - 05/29/2025 9:16 AM CDT Vent Rate: 74 bpm RR Interval: 807 msec W[place] Interval: 188 msec QRS Duration: 95 msec QT Interval: 407 msec QTC Interval: 434 msec P-R-T [place]: -4 - 19 - 57 degrees IMPRESSION: SINUS RHYTHM NORMAL ECG Electronically Signed By: Boirs Parnell MD Bernardo Garcia MD ECG ORDERABLES Final Result Performing Organization Address City/[facility] Co de Phone Number [facility] * Potassium (05/29/2025 7:47 AM CDT) Potassium, pl 3.8 3.3 - 4.9 mmol/L [facility] ([place]) Blood 05/29/2025 7:47 AM CDT 05/29/2025 7:54 AM CDT Bernardo Garcia MD LAB BLOOD ORDERABLES F inal Result Performing Organization Address City/State/[facility] Co de Phone Number [facility] ([place]) [address] [facility] [place] [address] from Last 3 Months Insurance [facility] Care Teams Network Security Engineer Relationship Specialty Start Date End Date Mirtha Dorado NP [address] [place] [address] PCP - General Educational Aide 04/01/25
--- OUTSIDE RECORDS SUMMARY | 2025-05-30 15:42 | XMS_ITS | Encounter Summary ---
Author Organization [facility] Address [address] [place] [address] Care Team Providers Care Ui Programmer Name Role Phone Mirtha Dorado NP Primary Care Provider [phone] Reason for Visit * Auth/Cert (Routine) Specialty Diagnoses / Procedures Referred By Wiliam t Referred To Contact Diagnoses Mediastinal adenopathy Mediastinal adenopathy [R59.0] Procedures [facility] EBUS GUIDED SAMPL 1/2 NODE STATION/STRUX linear EBUS no path no fluoro Referral ID Status Reason Start Date Expiration Date Visits Re quested Visits Authorized [id number] 1 1 Encounter Details Date Type Department Care Team (Late st Contact Info) Description 05/29/2025 9:54 AM CDT Anesthesia Event [facility] Operating Room 1 [place] [address] Bernardo Garcia MD [address] [place] [id number] Anesthesia Record Procedure Summary Procedure Name Responsible Anesthesiologist Anesthesia Start Time Anesthesia Stop Time Bronchoscopy with Linear Endobroncial Ultrasound, Fine Needle Aspirate and Bronchoalveolar Lavage (Bronchus) Bernardo Garcia MD 05/29/25 0954 05/29/25 1121 Events Date Time Event Comment 05/29/2025 0806 0952 In Room 0954 An Start 0954 An Start Data 0957 An Induction The patient was reevaluated immediately before moderate or deep sedation use and before anesthesia induction. 0958 An Intubation 1000 Anesthesia Ready 1000 Proc Start 1105 Proc Fin 1113 An Extubation 1116 Out of Room 1117 an stop data 1120 Handoff to RN I completed my handoff to the receiving nurse during which we: 1. Patient identified 2. Responsible provider identified 3. Pertinent medical history reviewed 4. Procedure type and surgical course discussed 5. Intraoperative anesthetic management and any significant issues discussed 6. Expectations and concerns for postop period discussed 7. Questions solicited from receiving nurse 8. Patient disposition at the time of handoff: PACU 1121 An Stop Meds Name Total midazolam 2 mg propofol 410 mg lidocaine (cardiac) syringe 2 % 100 mg phenylephrine (BIORPHEN) 0.5 mg/5 mL (10 0 mcg/mL) injection 500 mcg ondansetron 4 mg dexAMETHasone 10 mg/mL 10 mg esmolol 70 mg succinylcholine 100 mg/5 mL syringe 160 mg Lactated Ringer's (LR) infusion 1,000 mL * Agents Name O2% N2O O2 Air Sevoflurane Inspired Sevoflurane * Blood No blood administrations on file. Lines, Drains, and Airways Type Details Placement Removal Wound 05/29/25; 0941; Mouth 05/29/25 0 941 by Scotty Armstrong RN Peripheral IV Placement Date: 05/01 11/23; Placement Time: 0753; Catheter Size: 20 G; Orientation: Anterior, Left, Proximal; Location: Forearm; Site Prep: Chlorhexidine; Inserted by: Naheed; Insertion Attempts: 2; Patient Tolerance: Tolerated well; Removal Date: 05/29/25; Removal Time: 1317 05/29/25 0753 by Lori Fonseca RN 05/29/25 1317 by Lori Fonseca RN ETT Placement Date: 05/01 11/23; Placement Time: 1009 (created via procedure documentation); Mask Ventilation: 0; Technique: Video laryngoscopy; Type: ETT - single; Single Lumen Tube Size: 8.5 mm; Cuffed: Yes; Laryngoscope: Eddie; Blade Size: 3; Location: Oral; Insertion Attempts: 1; Placement Verification: Auscultation, Capnometry; Removal Date: 05/29/25; Removal Time: 1113 05/29/25 1009 by Chi Alatorre CRNA 05/29/25 1113 by Chi Alatorre CRNA documented in this encounter Social History Tobacco Use Types Packs/Day Years Used Date Smoking Tobacco: Every Day Cigarettes 1 50 AUDIT-C Answer Date Recorded Q1: How often [...] on file 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 Monthly or less 05/22/2025 1:08 PM Zandra Valadez RN Q2: How many drinks containing alcohol do you have on a typical day when you are drinking? 1 or 2 05/22/2025 1:08 PM Winter Valadez RN Q3: How often do you have six or more drinks on one occasion? Never 05/22/2025 1:08 PM Zandra Valadez RN documented as of this encounter OR Notes * Anesthesia Postprocedure Evaluation - Bernardo Garcia MD - 05/29/2025 11:57 AM CDT Patient: Monster Raymundo Procedure Summary Date: 05/29/25 Room / Location: [facility] OR [facility] OPERATING ROOM Anesthesia Start: 953 Anesthesia Stop: 112 Procedure: Bronchoscopy with Linear Endobroncial Ultrasound, Fine Needle Aspirate and Bronchoalveolar Lavage (Bronchus) Diagnosis: Mediastinal adenopathy (Mediastinal adenopathy [R59.0]) Providers: Abdirahman Stewart MD Responsible Provider: Bernardo Garcia MD Anesthesia Type: general ASA Status: 3 Anesthesia Type: general Last vitals Vitals Value Taken Time BP 140/77 05/29/25 11:57 Temp 36 ??C (96.8 ??F) 05/29/25 11:20 Pulse 82 05/29/25 11:57 Resp 20 05/29/25 11:57 SpO2 93 % 05/29/25 11:57 Vitals shown include unfiled device data. Anesthesia Post Evaluation Patient location during evaluation: PACU Patient participation: complete - patient participated Level of consciousness: fully awake Pain score: 0 Pain management: adequate Airway patency: adequate Evidence of recall: no Cardiovascular status: acceptable Respiratory status: acceptable Hydration status: acceptable Pt is: normothermic Nausea/Vomiting status: none No notable events documented. * Anesthesia Procedure Notes - Chi Alatorre CRNA - 05/29/2025 10:09 AM CDT Associated Order(s): Airway Airway Patient location: OR Urgency: elective Indications for airway management: anesthesia Difficult airway: no Staff: Placed by: PEST LOCATOR: Chi Alatorre CRNA Emergent airway documentation: Risks [...] with: silk tape Number of attempts: 1 * Anesthesia Preprocedure Evaluation - Fan Babin MD - 05/29/2025 7:57 AM CDT Images from the original note were not included. Anesthesia Evaluation Monster Raymundo is a 65 y.o. male linear EBUS no path no fluoro (Bronchus) Pre-Op Diagnosis Codes: * Mediastinal adenopathy [R59.0] HISTORY Past Medical History Information obtained from: patient and chart. Information obtained during: In Person Neurological Neuro/Psych system: negative Cardiovascular + Hypertension + Hyperlipidemia Respiratory + Sleep apnea (PAMELLA) Prescribed device: PAP non-compliant. + Current smoker (tobacco and THC) - Counseled to abstain from smoking the day of surgery. Patient refrained from smoking on day of surgery. Hepatic / Heme Hepatic/Heme system: negative Gastrointestinal GI system: negative Renal / Renal/ system: negative Musculoskeletal/Pain + Chronic pain - back pain. + Chronic opioid use - daily. + Osteoarthritis Endocrine / Other + Thyroid disease - hypothyroidism + Obesity (BMI >30) Review of Systems + chronic pain Patient Active Problem List Diagnosis Date Noted Mediastinal adenopathy 05/07/2025 Past Medical History: Diagnosis Date Constipation due to opioid therapy HTN (hypertension) Hyperlipidemia Murmur Sleep apnea Thyroid disease Past Surgical History: Procedure Laterality Date BACK SURGERY Back Surgery - (Added by TW Conv) twice EYE SURGERY VASCULAR SURGERY bypass in groin Allergies Allergen Reactions Acetaminophen-Codeine Shortness of breath and Itching Gabapentin Unknown and Other (See comments) makes me angry Codeine Itching Nalbuphine Diarrhea, Dizziness, Nausea And Vomiting, Nausea only and Vomiting Med List Status: Nurse Complete Set By: Zandra Fu RN at 05/15/2025 8:39 AM Taking? Last Dose Start Date End Date Provider aspirin 81 mg enteric coated tablet 05/23/2025 -- -- Camacho Beatty MD atorvastatin (LIPITOR) 20 mg tablet 05/28/2025 -- -- Camacho Beatty MD ergocalciferol (VITAMIN D) 50,000 unit capsule 05/26/2025 -- -- Camacho Beatty MD levothyroxine (SYNTHROID) 50 mcg tablet 05/28/2025 02/02/18 06/23/25 Camacho Beatty MD losartan-hydrochlorothiazide (HYZAAR) 100-25 mg per tablet 05/28/2025 -- -- Camacho Beatty MD morphine ER (MS CONTIN) 15 mg 12 hr tablet 05/28/2025 -- -- ProviderCamacho MD Trulance 3 mg tablet 05/28/2025 03/25/25 -- ProviderCamacho MD Current Facility-Administered Medications: Carrier Fluids for Secondary Infusion - 0.9% Sodium Chloride, 30 mL, intravenous, PRN Lactated Ringer's (LR) infusion, 30 mL/hr, intravenous, Continuous, Last Rate: 30 mL/hr at 756, Rate Verify at 05/29/25 0756 sodium chloride 0.9% flush 0.5-20 mL, 0.5-20 mL, intra-catheter, PRN Social History Tobacco Use Smoking Status Every Day Current packs/day: 1.00 Average packs/day: 1 pack/day for 50.0 years (50.0 ttl pk-yrs) Types: Cigarettes Smokeless Tobacco Not on file Alcohol Use: Not At Risk (05/22/2025) AUDIT-C Frequency of Alcohol Consumption: Monthly or less Average Number of Drinks: 1 or 2 Frequency of Binge Drinking: Never Substance and Sexual Activity Drug Use Yes Types: Morphine, Tobacco, Marijuana Comment: daily Family History Problem Relation Age of Onset Hypertension Mother Heart disease Mother Hypertension Father Emphysema Father Cancer Father Hypertension Sister Diabetes Sister Asthma Sister Cancer Paternal Half-Sister Diabetes Child Diabetes Granddaughter Vitals: 05/29/25 0736 BP: 130/85 Pulse: 86 Resp: 18 Temp: 36.3 ??C (97.3 ??F) SpO2: 96% PT: No results found for requested labs within last 30 days. INR: No results found for requested labs within last 30 days. APTT: No results found for requested labs within last 30 days. Hgb A1C: No results found for requested labs within last 30 days. CBC RBC: No results found for requested labs within last 30 days. RDW: No results found for requested labs within last 30 days. MCHC: No results found for requested labs within last 30 days. MCH: No results found for requested labs within last 30 days. MCV: No results found for requested labs within last 30 days. Hct: No results found for requested labs within last 30 days. Hgb: No results found for requested labs within last 30 days. WBC: No results found for requested labs within last 30 days. MPV: No results found for requested labs within last 30 days. Platelets: No results found for requested labs within last 30 days. RDW CV: No results found for requested labs within last 30 days. RDW Sd: No results found for requested labs within last 30 days. BMP Glucose: No results found for requested labs within last 30 days. Calcium: No results found for requested labs within last 30 days. Sodium: No results found for requested labs within last 30 days. Potassium: No results found for requested labs within last 30 days. CO2: No results found for requested labs within last 30 days. Chloride: No results found for requested labs within last 30 days. BUN: No results found for requested labs within last 30 days. Creatinine: No results found for requested labs within last 30 days. STOP-Bang Total Score: 5 DOS Physical Exam Date of Last Liquid: 05/28/25, Time of Last Liquid: 2200 Date of Last Solid: 05/28/25, Time of Last Solid: 1800 Medical history, medications, and allergies reviewed. Attestation: I endorse the findings of the anesthesia pre-evaluation assessment dated: 05/29/2025. Airway Exam: Mallampati: II Cervical ROM: FROM TM distance: normal Dental Exam: Edentulous Current state: Patient's current state is cooperative and interactive. Anesthesia Plan ASA 3 My patient is approved for the Anesthesia Controlled Medication protocol when under care of a PEST LOCATOR Planned anesthesia: General Team communication plan: oral ET tube Induction: Induction: intravenous. Postoperative Plan: Postoperative administration opioids intended. No postoperative mechanical ventilation intended. Patient's planned disposition post procedure is Outpatient. Informed Consent: Discussed plan with attending and PEST LOCATOR. Anesthesia plan and risks discussed with patient. Consent and Attending signature: I and/or my designee have discussed the anesthesia plan, benefits, possible alternatives, parental presence at time of induction (if indicated), and clinically relevant risks that may include dental injury, unintentional awareness, and/or other complications. The patient and/or parent/legal guardian understand, and agree to proceed. All questions answered. documented in this encounter Plan of Treatment Not on file documented as of this encounter Procedures Procedure Name Priority Date/Time Associated Diagnosis Comments SC AN ELECTIVE ENDOTRACHEAL AIRWAY Routine 05/29/2025 10:09 AM CDT documented in this encounter Results * SC AN ELECTIVE ENDOTRACHEAL AIRWAY (05/29/2025 10:09 AM CDT) Narrative Chi Alatorre CRNA - 05/29/2025 10:09 AM CDT Chi Alatorre CRNA 05/29/2025 10:09 AM Airway Patient location: OR Urgency: elective Indications for airway management: anesthesia Difficult airway: no Staff: Placed by: PEST LOCATOR: Chi Alatorre CRNA Emergent airway documentation: Risks [...] with: silk tape Number of attempts: 1 us Bernardo Garcia MD ANESTHESIA ORDERABLES Final Result documented in this encounter Visit Diagnoses Not on filedocumented in this encounter Administered Medications Inactive Administered Medications - up to 3 most recent administrations Medication Order MAR Action Action Date Dose Rate Site dexAMETHasone (DECADRON) injection solution intravenous, Administer over 2 Minutes, As needed, Starting on [place] 05/29/25 at 1004, Anesthesia Intra-op Given 05/29/2025 10:04 AM CDT 10 mg esmoloL (BREVIBLOC) injection intravenous, Administer over 1 Minutes, As needed, Starting on [place] 05/29/25 at 0957, Anesthesia Intra-op Given 05/29/2025 9:57 AM CDT 70 mg Lactated Ringer's (LR) infusion 30 mL/hr, intravenous, Continuous, Starting on [place] 05/29/25 at 0815, Pre-Op Rate/Dose Verify 05/29/2025 11:58 AM CDT 30 mL/hr 30 mL/hr Restarted 05/29/2025 11:22 AM CDT 30 mL/hr 30 mL/hr New Bag 05/29/2025 11:21 AM CDT lidocaine (PF) (XYLOCAINE) 20 mg/mL (2 %) preservative free injection intravenous, As needed, Starting on [place] 05/29/25 at 0956, Anesthesia Intra-op Given 05/29/2025 9:56 AM CDT 100 mg midazolam (VERSED) 1 mg/mL preservative free injection intravenous, Administer over 2 Minutes, As needed, Starting on [place] 05/29/25 at 0950, Anesthesia Intra-op Given 05/29/2025 9:55 AM CDT 1 mg Given 05/29/2025 9:50 AM CDT 1 mg ondansetron (ZOFRAN) injection intravenous, Administer over 2 Minutes, As needed, Starting on [place] 05/29/25 at 1004, Anesthesia Intra-op Given 05/29/2025 10:04 AM CDT 4 mg phenylephrine (BIORPHEN) 0.5 mg/5 mL (100 mcg/mL) injection intravenous, As needed, Starting on [place] 05/29/25 at 1023, Anesthesia Intra-op Given 05/29/2025 10:34 AM CDT 100 mc g Given 05/29/2025 10:31 AM CDT 100 mcg Given 05/29/2025 10:28 AM CDT 150 mcg propofoL (DIPRIVAN) 10 mg/mL IV intravenous, As needed, Starting on [place] 05/29/25 at 0957, Anesthesia Intra-op Given 05/29/2025 10:59 AM CDT 40 mg Given 05/29/2025 10:58 AM CDT 40 mg Given 05/29/2025 10:56 AM CDT 20 mg succinylcholine syringe intravenous, As needed, Starting on [place] 05/29/25 at 0957, Anesthesia Intra-op Given 05/29/2025 9:57 AM CDT 160 mg documented in this encounter Care Teams Ui Programmer Relationship Specialty Start Date End Date Mirtha Dorado NP [address] [place] [address] PCP - General Knitting Machine Tender 04/01/25 documented as of this encounter
--- OUTSIDE RECORDS SUMMARY | 2025-05-30 15:42 | XMS_ITS | Referral Summary ---
Author Organization [facility] [address] Address [address] [place] [address] Care Team Providers Care Frame Assembler Name Role Phone Mirtha Dorado NP Primary Care Provider [phone] Encounters Date Type Department Care Team Description 05/29/2025 12:29 PM CDT - 05/29/2025 11:59 PM [place] [address] Discharge Disposition: Discharge to home or self care 05/29/2025 9:15 AM CDT - 05/29/2025 11:15 AM CDT Surgery [facility] Operating Room 1 [place] [address] Abdirahman Stewart MD Bronchoscopy with Linear Endobroncial Ultrasound, Fine Needle Aspirate and Bronchoalveolar Lavage 05/29/2025 9:54 AM CDT Anesthesia Event [facility] Operating Room [address] [place] [address] Bernardo Garcia MD 05/29/2025 6:36 AM CDT - 05/29/2025 1:52 PM CDT Hospital Encounter [facility] Operating Room [address] [place] [address] Abdirahman Stewart MD Mediastinal adenopathy Discharge Disposition: Discharge to home or self care 05/07/2025 Telephone [facility] Pulmonology [address] [facility] [facility] [address] [place] [phone] Abdirahman Stewart MD 05/07/2025 Telephone [facility] Pulmonary at [address] [place] [address] Sanna Dorantes LPN Bronchoscopy 04/29/2025 1:00 PM CDT Office Visit [facility] Pulmonary at [address] [place] [address] Abdirahman Stewart MD Centrilobular emphysema (HCC) (Primary Dx); Hilar lymphadenopathy; Cigarette nicotine dependence without complication; ILD (interstitial lung disease) (HCC) from Last 3 Months Allergies Active Allergy Reactions Criticality Noted Date [...] suspension 200-200-20 mg/5 mL Take by mouth 5 05/15/20 25 Discontinu ed(Therapy completed) Active Problems Problem Noted Date Diagnosed Date Mediastinal adenopathy 05/07/2025 Social History Tobacco Use Types Packs/Day Years [...] on file 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 Gender Identity Not on file Sexual Orientation Not on file Last Filed Vital Signs Vital Sign Reading [...] 05/29/2025 7:36 AM CDT Plan of Treatment Not on file Procedures Procedure Name Priority Date/Time Associated Diagnosis Comments CELL DIFFERENTIAL, BODY FLUID Routine 05/29/2025 10:56 AM CDT CELL COUNT W/REFLEX DIFFERENTIAL, BODY FLUID Routine 05/29/2025 10:56 AM CDT MYCOLOGY (FUNGAL) CULTURE Routine 05/29/2025 10:56 AM CDT MYCOBACTERIOLOGY AFB CULTURE AND ACID-FAST STAIN Routine 05/29/2025 10:56 AM CDT AEROBIC CULTURE AND GRAM STAIN Routine 05/29/2025 10:56 AM CDT MI AN ELECTIVE ENDOTRACHEAL AIRWAY Routine 05/29/2025 10:09 [...] on 2019. Neutrophils, fld 5 % [facility] ([place]) Lymphs, fld 95 % [facility] Tri ([place]) Fluid 05/29/2025 10:5 6 AM CDT 05/29/2025 11:25 AM CDT Abdirahman Stewart MD LAB BODY FLUIDS AND STOOLS ORDER MOLLY Final Result [facility] ([place]) [address] [facility] Department of Laboratories [place] [id number] * Cell count w/rflx diff, body fluid (05/29/2025 10:56 AM CDT) Specimen type, fld Bronchial Color, fld White [facility] ([place]) Clarity, fld Cloudy [facility] ([place]) Nucleated cells, fld #NM /cumm [facility] ([place]) Comment: Interpretive Data Unless otherwise specified, the reference range and other method performance specifications have not been established for CSF/Body Fluid tests. The test results should be integrated into the clinical context for interpretation. Current interpretive data was last revised on 2019. RBC, fld Not Measured [facility] ([place]) Fluid 05/29/2025 10:5 6 AM CDT 05/29/2025 11:25 AM CDT Narrative [facility] CO[facility] ([place]) - 05/29/2025 11:54 AM CDT Right Middle Lobe us Abdirahman Stewart MD LAB BODY FLUIDS AND STOOLS ORDER MOLLY Final Result [facility] [place] [address] [facility] Department [place] [address] * MI AN ELECTIVE ENDOTRACHEAL AIRWAY (05/29/2025 10:09 AM CDT) Narrative Chi Alatorre CRNA - 05/29/2025 10:09 AM CDT Chi Alatorre CRNA 05/29/2025 10:09 AM Airway Patient location: OR Urgency: elective Indications for airway management: anesthesia Difficult airway: no Staff: Placed by: UNIT TRUST MANAGER: Chi Alatorre CRNA Emergent airway documentation: Risks [...] Rate: 74 bpm RR Interval: 807 msec MI Interval: 188 msec QRS Duration: 95 msec QT Interval: 407 msec QTC Interval: 434 msec P-R-T [place]: -4 - 19 - 57 degrees IMPRESSION: SINUS RHYTHM NORMAL ECG Electronically Signed By: Boris Parnell MD us Bernardo Garcia MD ECG ORDERABLES Final Result [facility] * Potassium (05/29/2025 7:47 AM CDT) Potassium, pl 3.8 3.3 - 4.9 mmol/L [facility] ([place]) Blood 05/29/2025 7:47 AM CDT 05/29/2025 7:54 AM CDT us Bernardo Garcia MD LAB BLOOD ORDERABLES F inal Result [facility] ([place]) [address] [facility] Department [place] [address] from Last [address] Months [id number] [place] [address] [facility] Care Teams Frame Assembler Relationship Specialty Start Date End Date Mirtha Dorado NP [address] [place] [address] PCP - General Configuration Management Architect 04/01/25
--- OUTSIDE RECORDS SUMMARY | 2025-05-30 15:42 | XMS_ITS | Clinical Summary ---
Author Organization [facility] Address [address] [place] [address] Care Team Providers Care Tugboat Pilot Name Role Phone Naheed Lindquist MD Primary Care Provider [phone] Social History Tobacco Use Types Packs/Day Years Used Date Smoking Tobacco: Never Assessed Sex and Gender Information Value Date Recorded Sex Assigned at Not on file Legal Sex Male 4:36 PM CDT Gender Identity Not on file Sexual Orientation Not on file Plan of Treatment Health Maintenance Due Date Last Done Comments Colorectal Cancer Screening Colonoscopy (10 Years) 1958 Hepatitis C 1976 DTaP, Tdap and Td Vaccines ( 1 - Tdap) 1977 Pneumococcal Vaccine: 50+ Ye ars (1 of 1 - PCV) 2008 Zoster Vaccines (1 of 2) 2008 COVID-19 Vaccine ( - 2023-2 5 season) 2024 RSV Immunization or 60+ Years (1 - 1-dose 75+ series) 2033 Meningococcal B Vaccine Aged Out No l onger eligible based on patient's age to complete this topic Meningococcal Vaccine Aged Out No bernardo erna eligible based on patient's age to complete this topic RSV Immunizations Under 20 Months Aged Out No longer eligible based on patient's age to complete this topic Care Teams Tugboat Pilot Relationship Specialty Start Date End Date Naheed Lindquist MD PCP - General 09/16/11
--- OUTSIDE RECORDS SUMMARY | 2025-05-30 15:42 | XMS_ITS | Encounter Summary ---
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 Gender Identity Not on file Sexual Orientation Not on file documented as of this encounter Medications at Time of Discharge aspirin 81 mg enteric coated tablet Take 1 tablet (81 mg total) by mouth daily atorvastatin (LIPITOR) 20 mg tablet Take 1 tablet (20 mg total) by mouth daily ergocalciferol (VITAMIN D) 50,000 unit capsule Take 1 capsule (50,000 Units total) by mouth once a week levothyroxine (SYNTHROID) 50 mcg tablet Take 1 tablet (50 mcg total) by mouth daily 02/02/2018 06/23/2025 losartan-hydrochl orothiazide (HYZAAR) 100-25 mg per tablet Take 1 tablet by mouth daily morphine ER (MS CONTIN) 15 mg 12 hr tablet Take 1 tablet (15 mg total) by mouth 2 (two) times a day Trulance 3 mg tablet Take 1 tablet (3 mg total) by mouth daily 03/25/2025 documented as of this encounter Discharge Disposition Disposition Code Departure Means Destination Discharge to home or self care documented in this encounter Plan of Treatment Pending Results Name Type Priority Associated Diagnoses Date /Time L/L [facility] Lab Routine 05/29/2025 10: 30 AM CDT Scheduled Orders Name Type Priority Associated Diagnoses Orde r Schedule L/L [facility] Lab Routine Once for 1 Occ urrences starting 05/29/2025 until 05/29/2025 documented as of this encounter Visit Diagnoses Not on filedocumented in this encounter Care Teams Front Office Java Developer Relationship Specialty Start Date End Date Mirtha Dorado NP [address] [place] [address] PCP - General Divorce Attorney 04/01/25 documented as of this encounter
--- OUTSIDE RECORDS SUMMARY | 2025-05-30 15:42 | XMS_ITS | Encounter Summary ---
Author Organization Formerly [facility] Address [address] [place] [address] Care Team Providers Care Thread Trimmer Name Role Phone Mirtha Dorado NP Primary Care Provider [phone] Reason for Visit * Auth/Cert (Routine) Specialty Diagnoses / Procedures Referred By Wiliam t Referred To Contact Diagnoses Mediastinal adenopathy Mediastinal adenopathy [R59.0] Procedures PA [facility] EBUS GUIDED SAMPL 1/2 NODE STATION/STRUX linear EBUS no path no fluoro Referral ID Status Reason Start Date Expiration Date Visits Re quested Visits Authorized [id number] 1 1 Encounter Details Date Type Department Care Team (Late st Contact Info) Description 05/29/2025 9:15 AM CDT - 05/29/2025 11:15 AM CDT Surgery [facility] Operating Room [address] [place] [address] Abdirahman Stewart MD [address] [place] [address] [address] Bronchoscopy with Linear Endobroncial Ultrasound, Fine Needle Aspirate and Bronchoalveolar Lavage Surgery Details Date/Time Status Location OR Service Patient Class Case Cl ass Case Type Trauma Case? 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 Gender Identity Not on file Sexual Orientation Not on file documented as of this encounter Last Filed Vital Signs Vital Sign Reading Time Taken Comments Blood Pressure 130/85 05/29/2025 7:36 AM CDT Pulse 86 05/29/2025 7:36 AM CDT Temperature 36.3 C (97.3 F) 05/29/2025 7:36 AM CDT Respiratory Rate 18 05/29/2025 7:36 AM CDT Oxygen Saturation 96% 05/29/2025 7:36 AM CDT Inhaled Oxygen Concentration - - Weight 112.9 kg (248 lb 14.4 oz) 05/29/2025 7:36 AM CDT Height 185.4 cm (6' 1) 05/29/2025 7:36 AM CDT Body Mass Index 32.84 05/29/2025 7:36 AM CDT documented in this encounter Functional Status * Audit-C Score [...] on one occasion? Never 05/22/2025 1:08 PM CDT Zandra Fu RN documented as of this encounter Discharge Instructions * Discharge Instructions* Lori Fonseca RN - 05/29/2025 11:49 AM CDT BRONCHOSCOPY DISCHARGE INSTRUCTIONS: Monster Raymundo underwent a BRONCHOSCOPY by Dr. Stewart on 05/29/25. DO NOT DO THE FOLLOWING: no driving, drinking alcoholic beverages, making critical decisions, or signing important documents for the next 24 hours. Common symptoms to expect after a bronchoscopy include: -coughing with small amounts of blood mixed with phlegm -sore throat and hoarseness -mild shortness of breath -low grade fevers < 101 The above symptoms should resolve within 24-48 hours. If they don't then call us at [phone] When you start to eat, make sure to start with softer foods at first and gradually advance to regular diet. Restart taking your home medications. Expect results within 1-2 weeks. * Attachments The following attachments cannot be sent through Care Everywhere. * General Anesthesia (Discharge Care) (American) * [facility] PATHWAY TO EXCELLENT CARE AFTER SURGERY * How to Stop Smoking (Discharge Care) (American) documented in this encounter Medications at Time of Discharge [...] Discharge Disposition Disposition Code Departure Means Destination Comment s Discharge to home or self care documented in this encounter H&P Notes * Abdirahman Stewart MD - 05/29/2025 8:42 AM CDT Images from the original note were not included. Pulmonary Pre-Procedure H&P Visit Date: 05/07/2025 Chief Complaint: Presents today for bronchoscopy HPI: Monster Raymundo is a 65 y.o. male w/ PMH of emphysema, PAMELLA who presents on 05/29/2025 for evaluationof mediastinal and hilar adenopathy. No other changes since last clinic visit. Last Meal: 05/28/2025 Oral anticoagulation or anti-platelets drugs: None Alcohol: Not applicable Prior anesthesia: No issues Past Medical History: Past Medical History: Diagnosis Date Constipation due to opioid therapy HTN (hypertension) Hyperlipidemia Murmur Sleep apnea Thyroid disease Family History: Family History Problem Relation Age of Onset Hypertension Mother Heart disease Mother Hypertension Father Emphysema Father Cancer Father Hypertension Sister Diabetes Sister Asthma Sister Cancer Paternal Half-Sister Diabetes Child Diabetes Granddaughter Social History: Social History Tobacco Use Smoking status: Every Day Current packs/day: 1.00 Average packs/day: 1 pack/day for 50.0 years (50.0 ttl pk-yrs) Types: Cigarettes Smokeless tobacco: None Substance and Sexual Activity Drug use: Yes Types: Morphine, Tobacco, Marijuana Comment: daily Sexual activity: Defer Alcohol Use: Not At Risk (05/22/2025) AUDIT-C Frequency of Alcohol Consumption: Monthly or less Average Number of Drinks: 1 or 2 Frequency of Binge Drinking: Never Review of Systems: Pertinent positives notes in HPI. Otherwise a 10 pt review of systems is negative. OBJECTIVE: Physical Exam: Vitals: 05/29/25 0736 BP: 130/85 Pulse: 86 Resp: 18 Temp: 36.3 ??C (97.3 ??F) TempSrc: Temporal SpO2: 96% Weight: 112.9 kg (248 lb 14.4 oz) Height: 185.4 cm (6' 1) General: appears comfortable in no apparent distress Eyes: anicteric, no redness or drainage, EOMI Neck: no thyromegaly or lymphadenopathy Cardiovascular: regular rate and rhythm, no murmurs, no edema or JVD Respiratory: clear to auscultation bilaterally, non labored Gastrointestinal: abdomen is soft and non-tender, + bowel sounds Musculoskeletal: no joint swelling or tenderness Neurologic: No focal deficits Skin: warm and dry Data Review: CT reviewed ASSESSMENT AND PLAN Monster Raymundo is a 65 y.o. male w/ PMH of PAMELLA, emphysema who presents on 05/29/2025 for evaluationof mediastinal or hilar adenopathy Plan to proceed with linear EBUS guided FNA and bronchoalveolar lavage Abdirahman Stewart MD There may be syntax/grammatical errors in this note due to the use of voice recognition software. documented in this encounter Nursing Notes * Zandra Fu RN - 05/15/2025 9:49 AM CDT 05/15/25 0832 Sleep Apnea Questions Have you ever had a sleep study? Yes Have you ever been diagnosed with sleep apnea? Yes Do you use a machine to help you breathe at night? No STOP-Bang Questionnaire Do you snore loudly? 0 Do you often feel tired or fatigued after you sleep? 0 Has anyone ever observed you stop breathing in your sleep? 1 Do you have or are you being treated for high blood pressure? 1 Recent BMI (Calculated) 33.1 Is BMI greater than 35 kg/m2? 0=No Age older than 50 years old? 1=Yes Neck Circumference Greater Than (17 inches Male) or (16 inches Female) 1 Gender - Male 1=Yes STOP-Bang Total Score 5 PAMELLA discharge instructions placed on chart for patient documented in this encounter Miscellaneous Notes * Perioperative Nursing Note - Naheed Welch RN - 05/29/2025 1:09 PM CDT Pt takes extended release morphine at home BID. Pt did not take it this AM. Pt requesting home doseof medicine. RN called Dr. Garcia, anesthesia and ok to give. Pt instructed to not take second dose of medicine at home until later this evening. 15mg Morphine extended release given at 1310. Ok for ptto go home once ride is here even if it hasn't been full 30 minutes per anesthesia. * Op Note - Abdirahman Stewart MD - 05/29/2025 9:15 AM CDT BRONCHOSCOPY PROCEDURE NOTE Pre-op Diagnosis: Mediastinal and hilar adenopathy Surgeon: Abdirahman Stewart MD Assistants: Sedation/Analgesia: Administered by anesthesia Procedure Details Informed consent was obtained for the procedure, including possible sedation. Risks of hypoxemia, lung injury/perforation, hemorrhage, infection, arrhythmia, and adverse drug reaction were discussed. Time-Out Process performed, verified patient identification, verified procedure, verified correct patient position, special equipment available. Please see anesthesia not for intubation details. Adequate oxygenation and ventilation was assured by adjusting mechanical ventilator to 1.0 vane of oxygen and matching the patients minute ventilation. The bronchoscope was advanced through the bronch adapter and the ET tube into the trachea and tracheobronchial tree. Findings: Endotracheal Tube: patent, clear of secretions Trachea: appeared normal Right and Left Mainstem: appeared normal The linear EBUS scope was advanced the bilateral airways and a lymph node survey was performed. Within the mediastinum there was a small lymph node at station 4R as well as one at station 7. There was no lymph node at station 4 L. I then advanced to the hilar stations and noted a small lymph node at station 11 L. There was a much larger lymph node at station 11R measuring over 1 cm in short axis. I returned to station 4R and began sampling the lymph node with linear EBUS guided FNA using a 22 gauge needle. The specimens were placed directly in cell block. I next went to station 7 and similarly using linear EBUS guided FNA and a 22 gauge needle I performed fine-needle aspiration. 4 passes were made and placed in RPMI to send for flow cytometry. I then made for additional passes that were placed into cytology. Finally I went to station 11 R were I performed linear EBUS guided FNA using a 22 gauge needle. 4 passes were made and placed directly into cell block After this I inserted the slim bronchoscope and wedged in the medial segment of the right middle lobe. A BAL was performed with instillation of 3 aliquots 50 mL normal saline and return of over 50 mLof slightly cloudy BAL fluid. This was sent for cell count with differential and culture Complications: None; patient tolerated the procedure well. EBL minimal Condition: stable. Abdirahman Stewart MD Pulmonary & Critical Care * Perioperative Nursing Note - Zandra Fu RN - 05/22/2025 1:12 PM CDT Images from the original note were not included. Pre Anesthesia Testing Perioperative Nursing Note Telephone Preoperative Evaluation - TELEPHONE ONLY, NO PHYSICAL EXAM - [facility] Date: 05/22/25 PAT RN completed assessment with the patient. Monster Raymundo is a 65 y.o. male linear EBUS no path no fluoro (Bronchus) Pre-Op Diagnosis Codes: * Mediastinal adenopathy [R59.0] There were no vitals filed for this visit. Social History Tobacco Use Smoking Status Every Day Current packs/day: 1.00 Average packs/day: 1 pack/day for 50.0 years (50.0 ttl pk-yrs) Types: Cigarettes Smokeless Tobacco Not on file Substance and Sexual Activity Drug Use Yes Types: Morphine, Tobacco, Marijuana Comment: daily Alcohol Use Q1: How often do you have a drink containing alcohol?: Monthly or less Q2: How many drinks containing alcohol do you have on a typical day when you are drinking?: 1 or 2 Q3: How often do you have six or more drinks on one occasion?: Never Past Medical History: Diagnosis Date Constipation due [...] Nausea And Vomiting, Nausea only and Vomiting CURRENT MEDICATIONS Med List Status: Nurse Complete Set By: Zandra Fu RN at 05/15/2025 8:39 AM Taking? Last Dose Start Date End Date Provider aspirin 81 mg enteric coated tablet -- -- -- Camacho Beatty MD atorvastatin (LIPITOR) 20 mg tablet -- -- -- Camacho Beatty MD ergocalciferol (VITAMIN D) 50,000 unit capsule -- -- -- Camacho Beatty MD levothyroxine (SYNTHROID) 50 mcg tablet -- 02/02/18 06/23/25 Camacho Beatty MD losartan-hydrochlorothiazide (HYZAAR) 100-25 mg per tablet -- -- -- Camacho Beatty MD morphine ER (MS CONTIN) 15 mg 12 hr tablet -- -- -- Camacho Beatty MD Trulance 3 mg tablet -- 03/25/25 -- Camacho Beatty MD Implants No active implants to display in this view. TRAVEL/EXPOSURE Travel Screening Have you traveled outside the [place] in the last 6 months?: No SCREENINGS STOP-Bang Total Score: 5 NUTRITION PATIENT CARE PLANNING ADDITIONAL COMMENTS/ FOLLOW UP Patient verbalized understanding of instructions. * Perioperative Nursing Note - Zandra Fu RN - 05/15/2025 8:53 AM CDT Pre operative instructions reviewed with patient, he verbalized understanding of instructions * Perioperative Nursing Note - Zandra Fu RN - 05/15/2025 8:53 AM CDT Images from the original note were not included. Pre Anesthesia Testing Perioperative Nursing Note Telephone Preoperative Evaluation - TELEPHONE ONLY, NO PHYSICAL EXAM - [facility] PAT Date: 05/15/25 PAT RN completed assessment with the patient. Monster Raymundo is a 65 y.o. male linear EBUS no path no fluoro (Bronchus) Pre-Op Diagnosis Codes: * Mediastinal adenopathy [R59.0] There were no vitals filed for this visit. Social History Tobacco Use Smoking Status Every Day Current packs/day: 1.00 Average packs/day: 1 pack/day for 50.0 years (50.0 ttl pk-yrs) Types: Cigarettes Smokeless Tobacco Not on file Substance and Sexual Activity Drug Use Yes Types: Morphine, Tobacco, Marijuana Comment: daily Alcohol Use Q1: How often do you have a drink containing alcohol?: Monthly or less Q2: How many drinks containing alcohol do you have on a typical day when you are drinking?: 1 or 2 Q3: How often do you have six or more drinks on one occasion?: Never Past Medical History: Diagnosis Date Constipation due to opioid therapy HTN (hypertension) Hyperlipidemia Hyperthyroidism Murmur Sleep apnea Thyroid disease Past Surgical History: Procedure Laterality Date BACK SURGERY Back Surgery - (Added by TW Conv) twice EYE SURGERY VASCULAR SURGERY bypass in groin Allergies Allergen Reactions Acetaminophen-Codeine Shortness of breath and Itching Gabapentin Unknown and Other (See comments) makes me angry Codeine Itching Nalbuphine Diarrhea, Dizziness, Nausea And Vomiting, Nausea only and Vomiting CURRENT MEDICATIONS Med List Status: Nurse Complete Set By: Zandra Fu RN at 05/15/2025 8:39 AM Taking? Last Dose Start Date End Date Provider aspirin 81 mg enteric coated tablet -- -- -- Camacho Beatty MD atorvastatin (LIPITOR) 20 mg tablet -- -- -- Camacho Beatty MD ergocalciferol (VITAMIN D) 50,000 unit capsule -- -- -- Camacho Beatty MD levothyroxine (SYNTHROID) 50 mcg tablet -- 02/02/18 06/23/25 Camacho Beatty MD losartan-hydrochlorothiazide (HYZAAR) 100-25 mg per tablet -- -- -- Camacho Beatty MD morphine ER (MS CONTIN) 15 mg 12 hr tablet -- -- -- Camacho Beatty MD Trulance 3 mg tablet -- 03/25/25 -- Camacho Beatty MD -- Implants No active implants to display in this view. TRAVEL/EXPOSURE Travel Screening Have you traveled outside the [place] in the last 6 months?: No SCREENINGS STOP-Bang Total Score: 5 NUTRITION PATIENT CARE PLANNING ADDITIONAL COMMENTS/ FOLLOW UP * Pre-Procedure Instructions - Zandra Fu RN - 05/15/2025 8:44 AM CDT [phone] We are pleased that you and your doctor have chosen [facility] for your surgery. We hope that the following information will help make your visit a pleasant one. Surgery Date: Before your surgery: Notify your doctor of ANY change in your health such as a cold, sore throat, fever, any infection or a change in the problem for which you are having your surgery. Follow any instructions given to you by your doctor or surgeon. Check with your doctor if you need to STOP taking: Aspirin (ordered by your doctor) Plavix Coumadin One week before surgery STOP taking: All herbal supplements Aspirin Aleve, Advil, Motrin, Ibuprofen, or other similar medications (Tylenol is okay). 24 hours before your surgery: No smoking or alcoholic drinks. Night before your surgery: Do not eat or drink anything after midnight. Follow surgeon's instructions for anti-bacterial shower night before and morning of surgery. Day of surgery: Do not swallow any water when you brush your teeth. TAKE MEDICATIONS INSTRUCTED WITH A SIP OF WATER Pre-Surgery Instructions Medication Instructions aspirin 81 mg enteric coated tablet Hold as instructed by your provider atorvastatin (LIPITOR) 20 mg tablet Take morning of surgery ergocalciferol (VITAMIN D) 50,000 unit capsule Take as prescribed levothyroxine (SYNTHROID) 50 mcg tablet Take morning of surgery losartan-hydrochlorothiazide (HYZAAR) 100-25 mg per tablet Take morning of surgery morphine ER (MS CONTIN) 15 mg 12 hr tablet Take morning of surgery Trulance 3 mg tablet Take as prescribed Use no make-up, nail ghanaian, lotions, oils or powders on your skin. Wear comfortable clothes that will not be tight in the area of your surgery. Leave all valuables and jewelry (including all body piercing jewelry) at home. If you use a CPAP machine, please bring it with you to wear after your surgery. Please bring your a photo ID and insurance cards with you. Check in at the Registration Desk.downstairs in the Ambulatory Surgery Department. You will come inthe main entrance and go down the miller until you see the [employer]/coffee shop, there will be elevators to the right, take those down to LL1. You will exist the elevators to the right and go down thehall and you will pass Medical Imaging on the left and we will be the next department on the right,you will see the sign above that says Ambulatory Surgery Department check-in. If you are 17 years old or younger, a parent or guardian must come with you. After your Outpatient Surgery: You must have a responsible adult to drive you home, you will not be allowed to drive or take a cabhome. We recommend you have someone stay with you for 24 hours after your surgery. Questions or concerns: If you have any questions or concerns regarding your procedure, contact your surgeon as soon as possible. If you have questions regarding your Pre-Admission Testing, please call us. We can be reached at the number posted at the top of the page. documented in this encounter Plan of Treatment Pending Results Name Type Priority Associated Diagnoses Date/Time Aerobic culture and gram stain Bronchoalveolar lavage Lobe, right middle Microbiology Routine 2024 10:56 AM CDT Mycobacteriology (AFB) culture and acid-fast stain Bronchoalveolar lavage Lobe, right middle Microbiology Routine 2024 10:56 AM CDT Mycology (fungal) culture Bronchoalveolar lavage Lobe, right middle Microbiology Routine 05/29/2025 10 :56 AM CDT Scheduled Orders Name Type Priority Associated Diagnoses Orde r Schedule Cytology Pathology and Cytology Timed Mediastinal adenopathy Release Upon Ordering for 1 Occurrences starting 05/29/2025 Cytology Pathology and Cytology Timed Mediastinal adenopathy Release Upon Ordering for 1 Occurrences starting 05/29/2025 Cytology Pathology and Cytology Routine Mediastinal adenopathy Release Upon Ordering for 1 Occurrences starting 05/29/2025 documented as of this encounter Procedures Procedure Name Priority Date/Time Associated Diagnosis Comments CELL DIFFERENTIAL, BODY FLUID Routine 05/29/2025 10:56 AM CDT CELL COUNT W/REFLEX DIFFERENTIAL, BODY FLUID Routine 05/29/2025 10:56 AM CDT AEROBIC CULTURE AND GRAM STAIN Routine 05/29/2025 10:56 AM CDT MYCOLOGY (FUNGAL) CULTURE Routine 05/29/2025 10:56 AM CDT MYCOBACTERIOLOGY AFB CULTURE AND ACID-FAST STAIN Routine 05/29/2025 10:56 AM CDT BRONCHOSCOPY ENDOBRONCHIAL ULTRASOUND 05/29/2025 9:37 AM CDT Mediastinal adenopathy ECG 12-LEAD STAT 05/29/2025 7:59 AM CDT POTASSIUM LEVEL STAT 05/29/2025 7:47 AM CDT documented in this encounter Results * Cell Differential, Body Fluid (05/29/2025 [...] Neutrophils, fld 5 % [facility] ([place]) Lymphs, fld 95 % [facility] ([place]) Fluid 05/29/2025 10:5 6 AM CDT 05/29/2025 11:25 AM CDT Abdirahman Stewart MD LAB BODY FLUIDS AND STOOLS ORDER MOLLY Final Result [facility] ([place]) 1 [facility] Department [place] [address] * Cell count w/rflx diff, body fluid (05/29/2025 10:56 AM CDT) Specimen type, fld Bronchial Color, fld White [facility] ([place]) Clarity, fld Cloudy [facility] ([place]) Nucleated cells, fld #NM /cumm [facility] ([place]) Comment: Interpretive Data Unless otherwise specified, the reference range and other method performance specifications have not been established for CSF/Body Fluid tests. The test results should be integrated into the clinical context for interpretation. Current interpretive data was last revised on 2019. RBC, fld Not Measured [facility] Fluid 05/29/2025 10:5 6 AM CDT 05/29/2025 11:25 AM CDT Narrative [facility] - 05/29/2025 11:54 AM CDT Right Middle Lobe Abdirahman Stewart MD LAB BODY FLUIDS AND STOOLS ORDER MOLLY Final Result Performing Organization Address [facility] Co de Phone Number [facility] ([place] [place] [address] * ECG 12 lead (05/29/2025 7:59 AM CDT) 05/29/2025 7:59 AM CDT Narrative [facility] - 05/29/2025 9:16 AM CDT Vent Rate: 74 bpm RR Interval: 807 msec PA Interval: 188 msec QRS Duration: 95 msec QT Interval: 407 msec QTC Interval: 434 msec P-R-T [place]: -4 - 19 - 57 degrees IMPRESSION: SINUS RHYTHM NORMAL ECG Electronically Signed By: Boris Parnell MD us Bernardo Garcia MD ECG ORDERABLES Final Result Performing Organization Address City/[facility] Co de Phone Number [facility] Resource [employer] [facility] * Potassium (05/29/2025 7:47 AM CDT) Potassium, pl 3.8 3.3 - 4.9 mmol/L [facility] ([place]) Blood 05/29/2025 7:47 AM CDT 05/29/2025 7:54 AM CDT Bernardo Garcia MD LAB BLOOD ORDERABLES F inal Result [facility] [place] [address] [facility] Department [place] [address] documented in this encounter Visit Diagnoses Diagnosis Mediastinal adenopathy- Primary Enlargement of lymph nodes Mediastinal adenopathy Enlargement of lymph nodes documented in this encounter Admitting Diagnoses Diagnosis Mediastinal adenopathy Enlargement of lymph nodes documented in this encounter Administered Medications Inactive Administered Medications - up to 3 most recent administrations Medication Order MAR Action Action Date Dose Rate Site acetaminophen (TYLENOL) tablet 1,000 mg 1,000 mg, oral, Once, On [place] 05/29/25 at 0845, For 1 dose, Pre-Op Given 05/29/2025 8:06 AM CDT 1,000 mg Lactated Ringer's (LR) infusion 30 mL/hr, intravenous, Continuous, Starting on [place] 05/29/25 at 0815, Pre-Op Rate/Dose Verify 05/29/2025 11:58 AM CDT 30 mL/hr 30 mL/hr Restarted 05/29/2025 11:22 AM CDT 30 mL/hr 30 mL/hr New Bag 05/29/2025 11:21 AM CDT midazolam (VERSED) 1 mg/mL preservative free injection 1 mg 1 mg, intravenous, Administer over 2 Minutes, Every 5 min PRN, anxiety, Starting on [place] 05/29/25 at 0807, For 2 doses, Pre-Op Given 05/29/2025 8:35 AM CDT 1 mg morphine ER (MS CONTIN) extended release tablet 15 mg 15 mg, oral, Once, On [place] 05/29/25 at 1330, For 1 dose, Do not crush, chew, cut, dissolve, open or otherwise manipulate tablet/capsule. Given 05/29/2025 1:08 PM CDT 15 mg sodium chloride 0.9% irrigation As needed, Starting on [place] 05/29/25 at 0940, Intra-Op Given 05/29/2025 9:52 AM CDT 1,000 mL Surgical Site documented in this encounter Discontinued Medications Medication Sig Discontinue Reason Start Date End Da te aluminum-magnesium hydroxide-simethicone (MAALOX) suspension 200-200-20 mg/5 mL Take by mouth Therapy completed 12/13/2024 05/15/2025 documented as of this encounter Active and Recently Administered Medications Times are shown in CDT. Scheduled Medication Order 05/27/2025 05/28/2025 05/29/2025 acetaminophen (TYLENOL) tablet 1,000 mg (COMPLETED) 1,000 mg, oral, Once, On [place] 05/29/25 at 0845, For 1 dose, Pre-Op 0806 (Given - Provid er: Lori Fonseca RN) morphine ER (MS CONTIN) extended release tablet 15 mg (COMPLETED) 15 mg, oral, Once, On [place] 05/29/25 at 1330, For 1 dose, Do not crush, chew, cut, dissolve, open or otherwise manipulate tablet/capsule. 1308 (Given - Provid er: Naheed Welch RN) Continuous Medication Order 05/27/2025 05/28/2025 05/29/2025 Lactated Ringer's (LR) infusion 30 mL/hr, intravenous, Continuous, Starting on [place] 05/29/25 at 0815, Pre-Op 0754 (New Bag - Prov ider: Lori Fonseca RN)0951 (Rate/Dose Verify - Provider: Lori Fonseca RN)0954 (Rate/Dose Verify - Provider: Chi Alatorre CRNA)1120 (Paused - Provider: Chi Alatorre CRNA - Comment: Switch to gravity)1121 (New Bag - Provider: Chi Alatorre CRNA)1122 (Restarted - Provider: Jones Escalante)1158 (Rate/Dose Verify - Provider: Jones Escalante)1447 (Due: Stopped) PRN Medication Order 05/27/2025 05/28/2025 05/29/2025 midazolam (VERSED) 1 mg/mL preservative free injection 1 mg (CANCELED) 1 mg, intravenous, Administer over 2 Minutes, Every 5 min PRN, anxiety, Starting on [place] 05/29/25 at 0807, For 2 doses, Pre-Op 0835 (Given - Provid er: Lori Fonseca RN) sodium chloride 0.9% irrigation (CANCELED) As needed, Starting on [place] 05/29/25 at 0940, Intra-Op 0952 (Given - Provid er: Abdirahman Stewart MD) documented in this encounter Orders Medications Ordered That Jc ht Not Have Been Administered Count Last Ordered Date First Ordered Date Carrier Fluids for Secondary Infusion - 0.9% Sodium Chloride 1 05/29/2025 fentaNYL (SUBLIMAZE) preserv ative free injection 25 mcg 1 05/29/2025 ipratropium-albuteroL (DUO-N EB) 0.5-2.5 mg/3 mL nebulizer solution 3 mL 1 05/29/2025 naloxone (NARCAN) 0.4 mg/mL injection 0.04-0.4 mg 1 05/29/2025 ondansetron (ZOFRAN) injection 4 mg 1 05/29 sodium chloride 0.9% flush 0.5-20 mL 1 05/01 Discharge Count Last Ordered Date First Orde red Date DISCHARGE PATIENT 1 05/29/2025 documented in this encounter Care Teams Thread Trimmer Relationship Specialty Start Date End Date Mirtha Dorado NP [address] [place] [address] PCP - General Sap Bi Architect 04/01/25 documented as of this encounter
--- OUTSIDE RECORDS SUMMARY | 2025-05-30 15:43 | XMS_ITS | Encounter Summary ---
Author Organization [facility] Address [address] [place] [address] Care Team Providers Care Sample Driller Name Role Phone Mirtha Dorado NP Primary Care Provider [phone] Reason for Visit * Auth/Cert (Routine) Specialty Diagnoses / Procedures Referred By Wiliam t Referred To Contact Diagnoses Mediastinal adenopathy Mediastinal adenopathy [R59.0] Procedures [place] [facility] EBUS GUIDED SAMPL 1/2 NODE STATION/STRUX linear EBUS no path no fluoro Referral ID Status Reason Start Date Expiration Date Visits Re quested Visits Authorized [id number] 1 1 Encounter Details Date Type Department Care Team (Latest Contact Info) Description 05/29/2025 6:36 AM CDT - 05/29/2025 1:52 PM CDT Hospital Encounter [facility] Operating Room 1 [place] [address] Abdirahman Stewart MD [address] [place] [address] [address] Mediastinal adenopathy Discharge Disposition: Discharge to home [...] on file 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 Monthly or less 05/22/2025 1:08 PM CDT Zandra Fu RN Q2: How many drinks containing alcohol do you have on a typical day when you are drinking? 1 or 2 05/22/2025 1:08 PM CDT Winter Fu RN Q3: How often do you have six or more drinks on one occasion? Never 05/22/2025 1:08 PM MARINAT Zandra Fu RN documented as of this encounter Discharge Instructions * Discharge Instructions* Lori Fonseca RN - 05/29/2025 11:49 AM CDT BRONCHOSCOPY DISCHARGE INSTRUCTIONS: Monster Waldo Raymundo underwent a BRONCHOSCOPY by Dr. Stewart [...] If they don't then call us at [phone] When you start to eat, make sure to start with softer foods at first and gradually advance to regular diet. Restart taking your home medications. Expect results within 1-2 weeks. * Attachments The following attachments cannot be sent through Care Everywhere. * General Anesthesia (Discharge Care) ([place]) * [facility] PATHWAY TO EXCELLENT CARE AFTER SURGERY * How to Stop Smoking (Discharge Care) ([place]) documented in this encounter Medications at Time [...] TELEPHONE ONLY, NO PHYSICAL EXAM - [facility] Date: 05/22/25 PAT RN completed assessment with [...] SURGERY Back Surgery - (Added by TW Wally) twice EYE SURGERY VASCULAR SURGERY bypass in [...] - TELEPHONE ONLY, NO PHYSICAL EXAM - [facility] Date: 05/15/25 PAT RN completed assessment with [...] Fu RN - 05/15/2025 8:44 AM CDT [phone] We are pleased that you and your doctor have chosen [facility] for your surgery. We hope that [...] Take as prescribed Use no make-up, nail qatari, lotions, oils or powders on your skin. [...] down the miller until you see the [employer]/coffee shop, there will be elevators to the [...] 2019. Neutrophils, fld 5 % CER R[facility]ITA [facility] ([place]) Lymphs, fld 95 % CERNER A ([place]) Fluid 05/29/2025 10:5 6 AM CDT 05/29/2025 11:25 AM CDT Abdirahman Stewart MD LAB BODY FLUIDS AND STOOLS ORDER MOLLY Final Result FRANCI COSTELLO ([place]) 1 [facility] Department [place] [address] * Cell count w/rflx diff, body fluid (05/29/2025 10:56 AM CDT) Specimen type, fld Bronchial Color, fld White CERNER [facility] ([place]) Clarity, fld Cloudy [facility] ([place]) Nucleated cells, fld #NM /cumm [facility] ([place]) Comment: Interpretive Data Unless otherwise specified, the reference range and other method performance specifications have not been established for CSF/Body Fluid tests. The test results should be integrated into the clinical context for interpretation. Current interpretive data was last revised on 2019. RBC, fld Not Measured [facility] COSTELL[facility] ([place]) Fluid 05/29/2025 10:5 6 AM CDT 05/29/2025 11:25 AM CDT Narrative [facility] ([place]) - 05/29/2025 11:54 AM CDT Right Middle Lobe us Abdirahman Stewart MD LAB BODY FLUIDS AND STOOLS ORDER MOLLY Final Result Performing Organization Address [facility] de Phone Number FRANCI COSTELL[facility] ([place]) 1 [facility] [place] [address] * ECG 12 lead (05/29/2025 7:59 AM CDT) 05/29/2025 7:59 AM CDT Narrative [facility] - 05/29/2025 9:16 AM CDT Vent Rate: 74 bpm RR Interval: 807 msec [place] Interval: 188 msec QRS Duration: 95 msec QT Interval: 407 msec QTC Interval: 434 msec P-R-T [place]: -4 - 19 - 57 degrees IMPRESSION: SINUS RHYTHM NORMAL ECG Electronically Signed By: Boris Parnell MD us Bernardo Garcia MD ECG ORDERABLES Final Result Performing Organization Address [facility] de Phone Number [facility] * Potassium (05/29/2025 7:47 AM CDT) Potassium, pl 3.8 3.3 - 4.9 mmol/L [facility]LL[facility] ([place]) Blood 05/29/2025 7:47 AM CDT 05/29/2025 7:54 AM CDT us Bernardo Garcia MD LAB BLOOD ORDERABLES F inal Result Performing Organization Address [facility] Co de Phone Number FRANCI COSTELLO ([place]) 1 [facility] [place] [address] documented in this encounter Visit Diagnoses Diagnosis Mediastinal adenopathy- Primary Enlargement of lymph nodes documented in this [...] Given 05/29/2025 1:08 PM CDT 15 mg documented in this encounter Discontinued Medications Medication [...] chloride 0.9% flush 0.5-20 mL 1 05/01 sodium chloride 0.9% irrigation 1 Discharge Count Last Ordered Date First Orde red Date DISCHARGE PATIENT 1 05/29/2025 documented in this encounter Care Teams Sample Driller Relationship Specialty Start Date End Date Mirtha Dorado NP [address] [place] [address] PCP - General Sweat Band Sewer 04/01/25 documented as of this encounter
[2025-05-30 15:59] VITALS: BP 170/74; PULSE 77; RESP 18; TEMP 36.6; O2SAT 97
--- OUTSIDE RECORDS SUMMARY | 2025-05-30 18:05 | XMS_ITS | Referral Summary ---
Author Organization [facility] [address] Address [address] [place] [address] Care Team Providers Care Paper Bag Press Operator Name Role Phone Mirtha Dorado NP Primary Care Provider [phone] Encounters Date Type Department Care Team Description 05/29/2025 12:29 PM CDT - 05/29/2025 11:59 PM [place] [address] Discharge Disposition: Discharge to home or self care 05/29/2025 9:15 AM CDT - 05/29/2025 11:15 AM CDT Surgery [facility] Operating Room 1 [place] [address] Abdirahman Stewart MD Bronchoscopy with Linear Endobroncial Ultrasound, Fine Needle Aspirate and Bronchoalveolar Lavage 05/29/2025 9:54 AM CDT Anesthesia Event [facility] Operating Room [address] [place] [address] Bernardo Garcia MD 05/29/2025 6:36 AM CDT - 05/29/2025 1:52 PM CDT Hospital Encounter [facility] Operating Room [address] [place] [address] Abdirahman Stewart MD Mediastinal adenopathy Discharge Disposition: Discharge to home or self care 05/07/2025 Telephone [facility] Pulmonology [address] [facility] [address] [place] [phone] Abdirahman Stewart MD 05/07/2025 Telephone [facility] Pulmonary at [address] [place] [address] Sanna Dorantes LPN Bronchoscopy 04/29/2025 1:00 PM CDT Office Visit [facility] Pulmonary at [address] [place] [address] Abdirahman Stewart MD Centrilobular emphysema [...] on file 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 Gender Identity Not on file Sexual Orientation [...] GRAM STAIN Routine 05/29/2025 10:56 AM CDT [place] AN ELECTIVE ENDOTRACHEAL AIRWAY Routine 05/29/2025 10:09 [...] Neutrophils, fld 5 % CER RENITA [facility]STELLO ([place]) Lymphs, fld 95 % CERNER Tri ([place]) Fluid 05/29/2025 10:5 6 AM CDT 05/29/2025 11:25 AM CDT Abdirahman Stewart MD LAB BODY FLUIDS AND STOOLS ORDER MOLLY Final Result FRANCI [facility] ([place]) 1 [facility] Department of Laboratories [place] [id number] * Cell count w/rflx diff, body fluid (05/29/2025 10:56 AM CDT) Specimen type, fld Bronchial Color, fld White [facility] ([place]) Clarity, fld Cloudy [facility] ([place]) Nucleated cells, fld #NM /cumm FR[facility]CI [facility] ([place]) Comment: Interpretive Data Unless otherwise specified, the reference range and other method performance specifications have not been established for CSF/Body Fluid tests. The test results should be integrated into the clinical context for interpretation. Current interpretive data was last revised on 2019. RBC, fld Not Measured FRANCI COSTELLO ([place]) Fluid 05/29/2025 10:5 6 AM CDT 05/29/2025 11:25 AM CDT Narrative [facility] ([place]) - 05/29/2025 11:54 AM CDT Right Middle Lobe us Abdirahman Stewart MD LAB BODY FLUIDS AND STOOLS ORDER MOLLY Final Result [facility]CI COSTELLO [place] 1 [facility] [place] [address] * [place] AN ELECTIVE ENDOTRACHEAL AIRWAY (05/29/2025 10:09 AM CDT) Narrative Chi Alatorre CRNA - 05/29/2025 10:09 AM CDT Chi Alatorre CRNA 05/29/2025 10:09 AM Airway Patient location: OR Urgency: elective Indications for airway management: anesthesia Difficult airway: no Staff: Placed by: DAIRY WORKER: Chi Alatorre CRNA Emergent airway documentation: Risks [...] CDT Narrative [facility] - 05/29/2025 9:16 AM CDT Vent Rate: 74 bpm RR Interval: 807 msec [place] Interval: 188 msec QRS Duration: 95 msec QT Interval: 407 msec QTC Interval: 434 msec P-R-T [place]: -4 - 19 - 57 degrees IMPRESSION: SINUS RHYTHM NORMAL ECG Electronically Signed By: Boris Parnell MD us Bernardo Garcia MD ECG ORDERABLES Final Result [facility] * Potassium (05/29/2025 7:47 AM CDT) Potassium, pl 3.8 3.3 - 4.9 mmol/L [facility] COSTELL[facility] ([place]) Blood 05/29/2025 7:47 AM CDT 05/29/2025 7:54 AM CDT us Bernardo Garcia MD LAB BLOOD ORDERABLES F inal Result FRANCI [facility]ANG ([place]) 1 [facility] [place] [address] from Last 3 Months Insurance [id number] [place] [address] [facility] Care Teams Paper Bag Press Operator Relationship Specialty Start Date End Date Mirtha Dorado NP [address] [place] [address] PCP - General Networking Engineer 04/01/25
--- OUTSIDE RECORDS SUMMARY | 2025-05-30 18:05 | XMS_ITS | Encounter Summary ---
Author Organization [facility] Address [address] [place] [address] Care Team Providers Care Soda Jerker Name Role Phone Mirtha Dorado NP Primary Care Provider [phone] Reason for Visit * Auth/Cert (Routine) Specialty Diagnoses / Procedures Referred By Wiliam t Referred To Contact Diagnoses Mediastinal adenopathy Mediastinal adenopathy [R59.0] Procedures [place] [facility] EBUS GUIDED SAMPL 1/2 NODE STATION/STRUX linear EBUS no path no fluoro Referral ID Status Reason Start Date Expiration Date Visits Re quested Visits Authorized [id number] 1 1 Encounter Details Date Type Department Care Team (Late st Contact Info) Description 05/29/2025 9:54 AM CDT Anesthesia Event [facility] Operating Room 1 [place] [address] Bernardo Garcia MD [address] [place] [address] Anesthesia Record Procedure Summary Procedure Name [...] on file 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 Postoperative Plan: Postoperative administration opioids intended. No postoperative mechanical ventilation intended. Patient's planned disposition post procedure is Outpatient. Informed Consent: Discussed plan with attending and INDUSTRIAL TRAINING SPECIALIST. Anesthesia plan and risks discussed with patient. [...] Procedure Name Priority Date/Time Associated Diagnosis Comments [place] AN ELECTIVE ENDOTRACHEAL AIRWAY Routine 05/29/2025 10:09 AM CDT documented in this encounter Results * [place] AN ELECTIVE ENDOTRACHEAL AIRWAY (05/29/2025 10:09 AM CDT) Narrative Chi Alatorre CRNA - 05/29/2025 10:09 AM CDT Chi Alatorre CRNA 05/29/2025 10:09 AM Airway Patient location: OR Urgency: elective Indications for airway management: anesthesia Difficult airway: no Staff: Placed by: INDUSTRIAL TRAINING SPECIALIST: Chi Alatorre CRNA Emergent airway documentation: Risks [...] mg documented in this encounter Care Teams Soda Jerker Relationship Specialty Start Date End Date Mirtha Dorado NP [address] [place] [address] PCP - General Dock Associate 04/01/25 documented as of this encounter
--- OUTSIDE RECORDS SUMMARY | 2025-05-30 18:05 | XMS_ITS | Encounter Summary ---
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
--- OUTSIDE RECORDS SUMMARY | 2025-05-30 18:05 | XMS_ITS | Encounter Summary ---
Author Organization [facility] Address [address] [place] [address] Care Team Providers Care Dampener Operator Name Role Phone Mirtha Dorado NP Primary Care Provider [phone] Reason for Visit * Auth/Cert (Routine) Specialty Diagnoses / Procedures Referred By Wiliam t Referred To Contact Diagnoses Mediastinal adenopathy Mediastinal adenopathy [R59.0] Procedures [facility] EBUS GUIDED SAMPL 1/2 NODE STATION/STRUX linear EBUS no path no fluoro Referral ID Status Reason Start Date Expiration Date Visits Re quested Visits Authorized [id number] 1 1 Encounter Details Date Type Department Care Team (Late st Contact Info) Description 05/29/2025 9:15 AM CDT - 05/29/2025 11:15 AM CDT Surgery [facility] Operating Room 1 [place] [address] Abdirahman Stewart MD [address] [place] [address] [address] Bronchoscopy with Linear Endobroncial Ultrasound, Fine Needle [...] on file 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 Restart taking your home medications. Expect results within 1-2 weeks. * Attachments The following attachments cannot be sent through Care Everywhere. * General Anesthesia (Discharge Care) ([place]) * [facility] PATHWAY TO EXCELLENT CARE AFTER SURGERY * How to Stop Smoking (Discharge Care) ([place]) documented in this encounter Medications at Time [...] - TELEPHONE ONLY, NO PHYSICAL EXAM - [facility] Date: 05/22/25 PAT RN completed assessment with [...] Fu RN - 05/15/2025 8:44 AM CDT [phone] We are pleased that you and your doctor have chosen [facility] for your surgery. We hope that the [...] Take as prescribed Use no make-up, nail citizen of [place], lotions, oils or powders on your skin. [...] down the miller until you see the [employer]/coffee shop, there will be elevators to the [...] Neutrophils, fld 5 % CER NER [facility] ([place]) Lymphs, fld 95 % CERNER A ([place]) Fluid 05/29/2025 10:5 6 AM CDT 05/29/2025 11:25 AM CDT Abdirahman Stewart MD LAB BODY FLUIDS AND STOOLS ORDER MOLLY Final Result FRANCI COSTELLO ([place]) 1 [facility] Department [place] [address] * Cell count w/rflx diff, body fluid (05/29/2025 10:56 AM CDT) Specimen type, fld Bronchial Color, fld White CERNER [facility] ([place]) Clarity, fld Cloudy [facility] ([place]) Nucleated cells, fld #NM /cumm FRANCI COSTELLO [...] Final Result Performing Organization Address [facility] Co de Phone Number FRANCI COSTELLO ([place]) 1 [facility] [place] [address] * ECG 12 lead (05/29/2025 7:59 AM CDT) 05/29/2025 7:59 AM CDT Narrative [facility] - 05/29/2025 9:16 AM CDT Vent Rate: 74 bpm RR Interval: 807 msec [place] Interval: 188 msec QRS Duration: 95 msec QT Interval: 407 msec QTC Interval: 434 msec P-R-T [place]: -4 - 19 - 57 degrees IMPRESSION: SINUS RHYTHM NORMAL ECG Electronically Signed By: Boris Parnell MD us Bernardo Garcia MD ECG ORDERABLES Final Result Performing Organization Address [facility] Co de Phone Number [facility] [employer] [facility] * Potassium (05/29/2025 7:47 AM CDT) Potassium, pl 3.8 3.3 - 4.9 mmol/L FRANCI COSTELLO ([place]) Blood 05/29/2025 7:47 AM CDT 05/29/2025 7:54 AM CDT Bernardo Garcia MD LAB BLOOD ORDERABLES F inal Result [facility] [place] 1 [facility] [place] [address] documented in this encounter Visit Diagnoses Diagnosis [...] 05/29/2025 documented in this encounter Care Teams Dampener Operator Relationship Specialty Start Date End Date Mirtha Dorado NP [address] [place] [address] PCP - General Manager Project Management 04/01/25 documented as of this encounter
--- OUTSIDE RECORDS SUMMARY | 2025-05-30 18:05 | XMS_ITS | Encounter Summary ---
Author Organization [facility] Address [address] [place] [address] Care Team Providers Care Open Hearth Laborer Name Role Phone Mirtha Dorado NP Primary Care Provider [phone] Reason for Visit * Auth/Cert (Routine) Specialty Diagnoses / Procedures Referred By Wiliam t Referred To Contact Diagnoses Mediastinal adenopathy Mediastinal adenopathy [R59.0] Procedures [facility] EBUS GUIDED SAMPL 1/2 NODE STATION/STRUX linear EBUS no path no fluoro Referral ID Status Reason Start Date Expiration Date Visits Re quested Visits Authorized [id number] 1 1 Encounter Details Date Type Department Care Team (Latest Contact Info) Description 05/29/2025 6:36 AM CDT - 05/29/2025 1:52 PM CDT Hospital Encounter [facility] Operating Room [address] [place] [address] Abdirahman Stewart MD [address] [place] [address] [address] Mediastinal adenopathy Discharge Disposition: Discharge to home [...] on file 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 Restart taking your home medications. Expect results within 1-2 weeks. * Attachments The following attachments cannot be sent through Care Everywhere. * General Anesthesia (Discharge Care) (Irish) * [facility] PATHWAY TO EXCELLENT CARE AFTER SURGERY * How to Stop Smoking (Discharge Care) (Irish) documented in this encounter Medications at Time [...] - TELEPHONE ONLY, NO PHYSICAL EXAM - [facility] Date: 05/15/25 PAT RN completed assessment with [...] Fu RN - 05/15/2025 8:44 AM CDT [phone] We are pleased that you and your doctor have chosen [facility] for your surgery. We hope that [...] Take as prescribed Use no make-up, nail costa rican, lotions, oils or powders on your skin. [...] down the miller until you see the [employer]/coffee shop, there will be elevators to the [...] Neutrophils, fld 5 % CER [facility] ([place]) Lymphs, fld 95 % CERNER A ([place]) Fluid 05/29/2025 10:5 6 AM CDT 05/29/2025 11:25 AM CDT Abdirahman Stewart MD LAB BODY FLUIDS AND STOOLS ORDER MOLLY Final Result FRANCI COSTELLO ([place]) 1 [facility] [place] [address] * Cell count w/rflx diff, body fluid (05/29/2025 10:56 AM CDT) Specimen type, fld Bronchial Color, fld White [facility] ([place]) Clarity, fld Cloudy [facility] ([place]) Nucleated cells, fld #NM /cumm [facility] ([place]) Comment: Interpretive Data Unless otherwise specified, the reference range and other method performance specifications have not been established for CSF/Body Fluid tests. The test results should be integrated into the clinical context for interpretation. Current interpretive data was last revised on 2019. RBC, fld Not Measured [facility]ANCI COSTELL[facility] ([place]) Fluid 05/29/2025 10:5 6 AM CDT 05/29/2025 11:25 AM CDT Narrative FRANCI COSTELL[facility] ([place]) - 05/29/2025 11:54 AM CDT Right Middle Lobe us Abdirahman Stewart MD LAB BODY FLUIDS AND STOOLS ORDER MOLLY Final Result Performing Organization Address [facility] de Phone Number FRANCI COSTELLO ([place]) 1 [facility] [place] [address] * ECG 12 lead (05/29/2025 7:59 AM CDT) 05/29/2025 7:59 AM CDT Narrative [facility] - 05/29/2025 9:16 AM CDT Vent Rate: 74 bpm RR Interval: 807 msec AL Interval: 188 msec QRS Duration: 95 msec QT Interval: 407 msec QTC Interval: 434 msec P-R-T [place]: -4 - 19 - 57 degrees IMPRESSION: SINUS RHYTHM NORMAL ECG Electronically Signed By: Boris Parnell MD us Bernardo Garcia MD ECG ORDERABLES Final Result Performing Organization Address [facility] de Phone Number [facility] * Potassium (05/29/2025 7:47 AM CDT) Potassium, pl 3.8 3.3 - 4.9 mmol/L [facility]STELL[facility] ([place]) Blood 05/29/2025 7:47 AM CDT 05/29/2025 7:54 AM CDT us Bernardo Garcia MD LAB BLOOD ORDERABLES F inal Result Performing Organization Address [facility] Co de Phone Number FRANCI COSTELLO ([place]) 1 [facility] [place] [address] documented in this encounter Visit Diagnoses Diagnosis [...] 05/29/2025 documented in this encounter Care Teams Open Hearth Laborer Relationship Specialty Start Date End Date Mirtha Dorado NP [address] [place] [address] PCP - General Custom Motorcycle Painter 04/01/25 documented as of this encounter
--- OUTSIDE RECORDS SUMMARY | 2025-05-30 18:05 | XMS_ITS | Clinical Summary ---
Author Organization [facility] Address [address] [place] [address] Care Team Providers Care Radiology Asst Name Role Phone Naheed Lindquist MD Primary Care Provider Social History Tobacco Use Types Packs/Day Years [...] age to complete this topic Care Teams Radiology Asst Relationship Specialty Start Date End Date Naheed Lindquist MD PCP - General 09/16/11
--- OUTSIDE RECORDS SUMMARY | 2025-05-30 18:05 | XMS_ITS | Clinical Summary ---
Author Organization [facility] [address] Address [address] [place] [address] Care Team Providers Care Education Specialist Name Role Phone Mirtha Dorado NP Primary Care Provider [phone] Allergies Active Allergy Reactions Criticality Noted Date [...] - 05/29/2025 11:59 PM [place] [address] Discharge Disposition: Discharge to home or self care 05/29/2025 9:54 AM CDT Anesthesia Event [facility] Operating Room [address] [place] [address] Bernardo Garcia MD 05/29/2025 9:15 AM CDT - 05/29/2025 11:15 AM CDT Surgery [facility] Operating Room [address] [place] [address] Abdirahman Stewart MD Bronchoscopy with Linear Endobroncial Ultrasound, Fine Needle Aspirate and Bronchoalveolar Lavage 05/29/2025 6:36 AM CDT - 05/29/2025 1:52 PM CDT Hospital Encounter [facility] Operating Room [address] [place] [address] Abdirahman Stewart MD Mediastinal adenopathy Discharge Disposition: Discharge to home or self care 05/07/2025 Telephone [facility] Pulmonology [address] [place] [id number] Abdirahman Stewart MD 05/07/2025 Telephone [facility] Pulmonary at [address] [place] [address] Sanna Dorantes LPN Bronchoscopy 04/29/2025 1:00 PM CDT Office Visit [facility] Pulmonary at [address] [place] [address] Abdirahman Stewart MD Centrilobular emphysema (HCC) (Primary [...] on file 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 de Phone Number FRANCI [facility] ([place]) 1 [facility] [place] [address] * Cell count w/rflx diff, body fluid (05/29/2025 10:56 AM CDT) Specimen type, fld Bronchial Color, fld White [facility]ER [facility] ([place]) Clarity, fld Cloudy [facility] ([place]) Nucleated cells, fld #NM /cumm [facility] ([place]) Comment: Interpretive Data Unless otherwise specified, the reference range and other method performance specifications have not been established for CSF/Body Fluid tests. The test results should be integrated into the clinical context for interpretation. Current interpretive data was last revised on 2019. RBC, fld Not Measured FRANCI [facility] ([place]) Fluid 05/29/2025 10:5 6 AM CDT 05/29/2025 11:25 AM CDT Narrative [facility]CI [facility] ([place]) - 05/29/2025 11:54 AM CDT Right Middle Lobe Abdirahman Stewart MD LAB BODY FLUIDS AND STOOLS ORDER MOLLY Final Result Performing Organization Address [facility] Co de Phone Number FRANCI [facility] ([place]) 1 [facility] [place] [address] * IA AN ELECTIVE ENDOTRACHEAL AIRWAY (05/29/2025 10:09 AM CDT) Narrative Chi Alatorre CRNA - 05/29/2025 10:09 AM CDT Chi Alatorre CRNA 05/29/2025 10:09 AM Airway Patient location: OR Urgency: elective Indications for airway management: anesthesia Difficult airway: no Staff: Placed by: PROCESS SUPERVISOR: Chi Alatorre CRNA Emergent airway documentation: Risks [...] AM CDT) 05/29/2025 7:59 AM CDT Narrative [facility] - 05/29/2025 9:16 AM CDT Vent Rate: 74 bpm RR Interval: 807 msec IA Interval: 188 msec QRS Duration: 95 msec QT Interval: 407 msec QTC Interval: 434 msec P-R-T [place]: -4 - 19 - 57 degrees IMPRESSION: SINUS RHYTHM NORMAL ECG Electronically Signed By: Boris Parnell MD Bernardo Garcia MD ECG ORDERABLES Final Result Performing Organization Address City/[facility] Co de Phone Number [facility] * Potassium (05/29/2025 7:47 AM CDT) Potassium, pl 3.8 3.3 - 4.9 mmol/L FRANCI COSTELLO ([place]) Blood 05/29/2025 7:47 AM CDT 05/29/2025 7:54 AM CDT Bernardo Garcia MD LAB BLOOD ORDERABLES F inal Result Performing Organization Address City/State/[facility] Co de Phone Number FRANCI COSTELLO ([place]) 1 [facility] [place] [address] from Last 3 Months Insurance [facility] Care Teams Education Specialist Relationship Specialty Start Date End Date Mirtha Dorado NP [address] [place] [address] PCP - General Entry Level Lab Technician 04/01/25
--- NOTE | 2025-05-30 18:16 | ECG_ITS ---
Test Date: 2025-05-30 19:39:13 Measurements Intervals [place] Rate: 61 P: 47 SD: 196 QRS: 27 QRSD: 104 T: 68 QT: 443 QTc: 446 Interpretive Statements SINUS RHYTHM BORDERLINE ST-T WAVE ABNORMALITY- HIGH LATERAL LEADS BORDERLINE ECG Compared to ECG 11/06/2024 20:18:58 NO SIGNIFICANT CHANGE Electronically Signed On 05-31-2025 07:26:47 CDT by Jose Berkowitz D.O.
[2025-05-30 18:41] LABS: Hematocrit 44.7 % (42.0-52.0); Hemoglobin 15.1 g/dL (14.0-18.0); Mean Corpuscular HGB Conc 33.8 g/dl (32-36); Mean Corpuscular Hemoglobin 31.3 pg (26-34); Mean Corpuscular Volume 92.7 fl (80-100); Platelet Count Result 274 k/mm3 (150-375); Red Blood Count 4.82 M/mm3 (4.6-6.20); White Blood Count 24.8 K/mm3 (4.5-10.0)
--- NOTE | 2025-05-30 18:51 | ED_ITS ---
HPI - Recheck/Abnormal Lab/Rx General Chief Complaint: Recheck/Abnormal Lab/Rx Stated Complaint: pain post Biopsy Time Seen by Provider: 05/30/25 17:44 Source: patient Mode of arrival: ambulatory Limitations: no limitations History of Present Illness HPI narrative: Patient is a 65 y/o male who presents to the ED with c/o chest and rib pain. Patient reports he underwent endoscopic fine needle aspiration biopsy of an enlarged hilar lymph node yesterday at [facility]. He states today he has been having severe pain in his bilateral chest wall/ribs/upper back. Reports pain is worse with movement, coughing, standing upright, turning. He is on morphine for his chronic back pain and has also taken ibuprofen w/o improvement. Denies difficulty breathing or feeling short of breath. Denies fevers. States he could not get a ride to [facility] today and prompted here instead. Related Data Home Medications ?Medication ?Instructions ?Recorded ?Confirmed ?Last Taken ?Type aspirin 81 mg tablet 81 mg PO DAILY 11/30/21 01/31/25 11/06/24 History hydrocodone 10 mg-acetaminophen 1 tablet PO BID PRN chronic pain 11/06/24 01/31/25 11/06/24 History 325 mg tablet Allergies Allergy/AdvReac Type Severity Reaction Status Date / Time codeine Allergy Unknown Unknown Verified 11/06/24 17:14 cyclobenzaprine Allergy Unknown Unknown Verified 11/06/24 17:14 methocarbamol Allergy Unknown Unknown Verified 11/06/24 17:14 gabapentin AdvReac Mild Agitated Verified 11/06/24 17:14 nalbuphine AdvReac Unknown Vomiting Verified 11/06/24 17:14 Review of Systems 2 Review of Systems: All systems reviewed & are unremarkable except as noted in HPI. All systems reviewed & are unremarkable except as noted in HPI and below PMFSH Past Medical History Medical History Chronic prescription opiate use Chronic back pain Chronic neck pain Thyroid dysfunction Aortic stenosis Cervical radiculopathy Dyslipidemia Vitamin D deficiency History of colon polyps History of DVT (deep vein thrombosis) Bowel trouble Weakness Difficulty breathing Difficulty sleeping Head trauma Fatigue Numbness Arthritis Constipation Obstructive sleep apnea (~10/2020) Spinal stenosis History of transient ischemic attack Tobacco abuse Osteoarthritis Depression COPD (chronic obstructive pulmonary disease) High cholesterol Hypertension Surgical History Surgical History History of laparoscopic appendectomy 04/02/24 History of eye surgery 1963 History of knee surgery H/O discectomy x2 Family History Family History Father Alcohol abuse Hypertension Lung cancer Mother Hypertension Cerebrovascular accident CHF (congestive heart failure) Sibling Diabetes mellitus Anxiety Depression Hypertension Son Cancer Hypertension Social History Social History Smoking packs per day: 1 Smoking cigarettes per day: 20.0 Years smoked: 55 Smoking pack-years: 55.00 Smoking status: Never smoker Tobacco type: cigarettes Second hand tobacco smoke exposure: No Additional smoking assessment comments: Daily marijuana Alcohol intake: former Substance use: current Substance use type: marijuana Other substance usage details: Daily marijuana Do You Feel Safe in your Home?: Yes Lack of Transportation: No Lack of Food: Never True Current Housing: I Have Housing Concerned About Future Housing: No Difficulty Paying Gas/Electric Bills: No Difficulty Paying for Meds: No Currently Unemployed: No Education: High School Diploma/GED Difficulty w/ Childcare or Family Care: No Living arrangements: with family Spiritual care concerns: No Exam 2 Narrative: GENERAL: Appears older than stated age, obese with BMI of 34.9, non-toxic, in no acute distress. HEAD: Normocephalic, atraumatic. RESPIRATORY: Airway patent, respirations nonlabored. Clear to auscultation bilaterally, no rales, rhonchi, wheezing. Lung sounds seem equal bilaterally CARDIOVASCULAR: Regular rate and rhythm without murmurs, rubs, or gallops. MUSCULOSKELETAL: Moves all extremities. No gross deformities. No significant reproducible tenderness throughout anterior/posterior chest wall, along rib cage, throughout midline spine. SKIN: Warm, dry, normal color. NEURO: A&O X3. Speech clear. Cranial nerves II-XII grossly intact. Steady gait. No ataxic movements. PSYCHIATRIC: Appropriate mood and affect. Normal interaction. Course Vital Signs Vital signs: Vital Signs Temperature 97.8 F 05/30/25 15:59 Pulse Rate 77 05/30/25 15:59 Respiratory Rate 18 05/30/25 15:59 Blood Pressure 170/74 H 05/30/25 15:59 Pulse Oximetry 97 05/30/25 15:59 Temperature 97.8 F 05/30/25 15:59 Pulse Rate 77 05/30/25 15:59 Respiratory Rate 18 05/30/25 15:59 Blood Pressure 170/74 H 05/30/25 15:59 Pulse Oximetry 98 05/30/25 20:56 MDM - Recheck/Abnormal Lab/Rx MDM Narrative Medical decision making narrative: Patient presented to ED with bilateral chest/rib/back pain. Status post endoscopic FNA of hilar mass/LN yesterday at outside hospital. Vital signs are stable upon arrival. Patient is in no acute distress. Denying any shortness of breath or difficulty breathing. Oxygen stable on room air. Unable to reproduce his chest/back pain on exam. Pain mostly present with movement. Pleuritic in nature. Laboratory studies with white blood cell count of 24.8. Neutrophil predominance. 1% bands. CMP unremarkable. Blood sugar slightly elevated to 142. Troponin is undetectable. CT diagnostics chest with contrast and without acute process. Does show chronic lung findings, pulmonary hypertension, pulmonary nodules. Patient is aware of these findings. No complications noted of biopsy performed yesterday. There was excellent opacifications of the pulmonary arteries and no emboli were detected per radiology report. No pneumothorax or pleural effusion. Overall reassuring imaging. Discussed lab and imaging findings with patient. Suspect pleuritic irritation related to biopsy procedure. Patient was given pain control in the ED. He was feeling improved. He is on chronic pain medications at home. I overall feel patient is safe for D/C home with close outpatient follow-up with his surgeon and primary care doctor. Will prescribe short course of muscle relaxers. He continues to deny any shortness of breath or respiratory compromise. His vitals have remained stable throughout ED stay. I did discuss the patient's leukocytosis and emphasized the importance of close follow-up as outpatient and repeat laboratory testing. Patient is otherwise denying any infectious type symptoms. Denies fevers, nausea, vomiting, diarrhea, new cough, wounds, rashes, urinary complaints. I have low suspicion for sepsis at this time. Patient given very strict return precautions. He voiced understanding. Is in agreement with plan. Feels comfortable going home. Discharged in stable condition. Medical Records Attestation: I reviewed the patient's medical records. Lab Data Attestation: I reviewed the patient's lab results. 05/30/25 18:32 05/30/25 18:32 Labs: Lab Results 05/30/25 Range/Units 18:32 WBC 24.8 H (4.5-10.0) K/mm3 RBC 4.82 (4.6-6.20) M/mm3 Hgb 15.1 (14.0-18.0) g/dL Hct 44.7 (42.0-52.0) % MCV 92.7 (80-100) fl MCH 31.3 (26-34) pg MCHC 33.8 (32-36) g/dl RDW 13.2 (11.5-14.5) % Plt Count 274 (150-375) k/mm3 MPV 11.1 H (7.4-10.4) fl Immature Gran % (Auto) Not Reportable Neut % (Auto) Not Reportable Lymph % (Auto) Not Reportable [place] % (Auto) Not Reportable Eos % (Auto) Not Reportable Baso % (Auto) Not Reportable Lymph # (Auto) Not Reportable [place] # (Auto) Not Reportable Eos # (Auto) Not Reportable Baso # (Auto) Not Reportable Abs Immat Gran (auto) Not Reportable Absolute Neuts (auto) Not Reportable Absolute Nucleated RBC Not Reportable Total Counted 100 Neutrophils % (Manual) 72 (46-73) % Band Neutrophils % 1 (0-6) % Lymphocytes % (Manual) 20 (18-44) % Monocytes % (Manual) 3 (3-9) % Eosinophils % (Manual) 4 (0-4) % Nucleated RBC % Not Reportable Abs Neuts (Manual) 18.10 H (1.3-6.7) K/mm3 Abs Lymphs (Manual) 4.96 H (1.1-4.5) K/mm3 Abs Monocytes (Manual) 0.74 (0.1-0.90) K/mm3 Absolute Eos (Manual) 0.99 H (0.02-0.50) K/mm3 Atypical Lymphocytes Present Smudge Cells Few Platelet Estimate Adequate (Adequate) Schistocytes None seen PT 13.8 (11.1-14.7) Seconds INR 1.0 APTT 29.0 (22.3-36.8) Seconds Sodium 136 L (137-145) mmol/L Potassium 4.2 (3.4-5.0) mmol/L Chloride 105 (98-107) mmol/L Carbon Dioxide 23 (22-30) mmol/L Anion Gap 8 (4-12) mmol/L BUN 15 (9-20) mg/dL Creatinine 0.88 (0.7-1.3) mg/dL Estim Creat Clear Calc 97 ml/min Estimated GFR > 60 (59 - ) Glucose 142 H (65-110) mg/dL Calcium 9.1 (8.4-10.2) mg/dL Total Bilirubin 0.5 (0.2-1.3) mg/dL AST 30 (17-59) U/L ALT 24 (6-50) U/L Alkaline Phosphatase 87 (38-126) U/L Troponin I < 0.012 (0.000-0.034) ng/mL Total Protein 7.5 (6.3-8.2) g/dL Albumin 4.4 (3.5-5.1) g/dL Imaging Data Attestation: I personally reviewed and interpreted this imaging study as follows: Radiologist's impression: ITS Impressions Chest CT 05/30/25 19:36 IMPRESSION: No acute thoracic process detected. Respiratory bronchiolitis versus chronic interstitial lung disease. Mediastinal and hilar lymphadenopathy. CT findings suggestive of pulmonary hypertension. Multiple sub-6 mm pulmonary nodules, if the patient is at high risk consider an optional low-dose noncontrast CT of the chest in one year. Ascending thoracic aortic ectasia. ECG Data EKG #1: Attestation: I personally reviewed and interpreted this ECG as follows: ECG completion date: 05/30/25 Discharge Plan Discharge Clinical Impression: Chest wall pain, History of lung biopsy Leukocytosis Qualifiers: Leukocytosis type: unspecified Qualified Code(s): D72.829 - Elevated white blood cell count, unspecified Patient Disposition: Home Condition: Stable Instructions: Antibiotic Form, Pleurisy (ED), Thoracic Pain (ED), Chest Wall Pain (ED) Additional Instructions: Continue Tylenol and Ibuprofen as needed for pain. You can take up to 600 mg of ibuprofen every 6 hours, 1000 mg of Tylenol every 6 hours. Continue home pain medications as well. Take muscle relaxers as needed and prescribed. Recommend taking these at night as they may cause sedation. Do not drive, operate heavy machinery, drink alcohol while on muscle relaxers as this may cause further sedation. Recommend close follow-up with your surgeon for further evaluation and continued management. Your white blood cell count was noted to be elevated today. You will need to follow-up with your primary care doctor for further evaluation and repeat laboratory testing. Return to the ED if you experience worsening or severe pain, fall or injury, difficulty breathing or feeling short of breath, coughing blood, unable to keep down food or drink, persistent fevers, or any other symptoms of concern. Patient Language: Mongolian Prescriptions: New cyclobenzaprine 5 mg tablet 10 mg PO TID PRN (Reason: muscle spasm) Qty: 15 0RF No Action atorvastatin 20 mg tablet See Rx Instructions .ROUTE .COMPLEX Qty: 90 2RF Dose Instruction: TAKE 1 TABLET BY MOUTH EVERY DAY AT BEDTIME Rx Instructions: TAKE 1 TABLET BY MOUTH EVERY DAY AT BEDTIME aspirin 81 mg Tablet 81 mg PO DAILY hydrocodone-acetaminophen 10-325 mg tablet 1 tablet PO BID PRN (Reason: chronic pain) ergocalciferol (vitamin D2) 1,250 mcg (50,000 unit) capsule 1,250 mcg PO WEEKLY Qty: 12 1RF levothyroxine 50 mcg tablet 50 mcg PO DAILY Qty: 90 1RF losartan-hydrochlorothiazide 100-25 mg tablet See Rx Instructions .ROUTE .COMPLEX Qty: 90 2RF Dose Instruction: TAKE 1 TABLET BY MOUTH DAILY Rx Instructions: TAKE 1 TABLET BY MOUTH DAILY Follow-up/Referrals: Olaf,Valencia Hanson MD [Primary Care Provider] - Time of Disposition: 20:59
[2025-05-30 18:53] LABS: Alanine Aminotransferase 24 U/L (6-50); Albumin Level 4.4 g/dL (3.5-5.1); Alkaline Phosphatase 87 U/L (38-126); Anion Gap 8 mmol/L (4-12); Aspartate Amino Transferase 30 U/L (17-59); Band Neutrophils Percent 1 % (0-6); Bilirubin,Total 0.5 mg/dL (0.2-1.3); Blood Urea Nitrogen 15 mg/dL (9-20); Calcium 9.1 mg/dL (8.4-10.2); Carbon Dioxide 23 mmol/L (22-30); Chloride 105 mmol/L (98-107); Eosinophils Absolute Manual 0.99 K/mm3 (0.02-0.50); Eosinophils Percent Manual 4 % (0-4); Estimated CRCL calculation 97 ml/min; Estimated Glomerular Filt Rate > 60; Glucose 142 mg/dL (65-110); Lymphocytes Absolute Manual 4.96 K/mm3 (1.1-4.5); Lymphocytes Percent Manual 20 % (18-44); Monocytes Absolute Manual 0.74 K/mm3 (0.1-0.90); Monocytes Percent Manual 3 % (3-9); Neutrophils Absolute Manual 18.10 K/mm3 (1.3-6.7); Neutrophils Percent Manual 72 % (46-73); Potassium 4.2 mmol/L (3.4-5.0); Smudge Cells FEW; Sodium 136 mmol/L (137-145); Total Cells Counted 100; Total Protein 7.5 g/dL (6.3-8.2)
[2025-05-30 18:54] LABS: Schistocytes None Seen
[2025-05-30 18:56] LABS: INR 1.0; Prothrombin Time 13.8 Seconds (11.1-14.7)
[2025-05-30 18:57] LABS: Partial Thromboplastin Time 29.0 Seconds (22.3-36.8)
[2025-05-30 19:04] LABS: Troponin I < 0.012 ng/mL (0.000-0.034)
[2025-05-30] MEDS: HYDROcodone/acetaminophen (*CRX) 5-325 MG TABLET 1 TAB PO (19:15)
[2025-05-30] MEDS: HYDROmorphone HCL INJ (*CRX) 2 MG/ML VIAL 0.5 MG IM (20:45)
[2025-05-30] MEDS: KETOROLAC 30 MG/ML VIAL (*BKC) IV PUSH (20:48)
[2025-05-30 20:56] VITALS: O2SAT 98
--- NOTE | 2025-05-30 21:13 | PC.NURSE ---
RN called about sisal picker for ride. Patient brought to waiting room to wait for ride. Patient given sandwich and water by RN.
== END 2025-05-30 21:14 | disposition home or self-care (01) ==
PROVIDERS: Emergency Provider Physician Assistant; PCP Family Medicine
DX: R07.89 Other chest pain (principal); D72.829 Elevated white blood cell count, unspecified; Z98.890 Other specified postprocedural states; I35.0 Nonrheumatic aortic (valve) stenosis; I10 Essential (primary) hypertension; J44.9 Chronic obstructive pulmonary disease, unspecified; E78.00 Pure hypercholesterolemia, unspecified; E55.9 Vitamin D deficiency, unspecified; M19.90 Unspecified osteoarthritis, unspecified site; G47.33 Obstructive sleep apnea (adult) (pediatric); F17.210 Nicotine dependence, cigarettes, uncomplicated; Z86.0100 Personal history of colon polyps, unspecified; Z86.718 Personal history of other venous thrombosis and embolism; Z86.73 Personal history of transient ischemic attack (TIA), and cerebral infarction without residual deficits; I77.810 Thoracic aortic ectasia; R91.8 Other nonspecific abnormal finding of lung field; R94.31 Abnormal electrocardiogram [ECG] [EKG]
CPT/HCPCS: 36415; 71260; 80053; 84484; 85025; 85610; 85730; 93005; 96374; 96375; 99284; A9270; J1171; J1885; Q9967